=== PATIENT | female | born 1975 | race African-American/Black ===

== ENCOUNTER → 2016-11-08 | Outpatient (CLI) | payer OTHER ==
[2016-03-22 11:50] VITALS: BP 121/72
[~2016-11-08] MED LIST: ACET-704 PO; ADAL40KI SQ; BUPIVACAINE MPF 0.25% 10 ML VIAL. ONE; DEXL60CA PO; DULO30CA2 PO; ESTR5VIA IM; ETON68IM3 SQ; FLUT9.9S NS; HYDR-2762 PO; IBUP-1060 PO; IOHEXOL 180 MG/ML 10 ML VIAL. ONE; LANS30CA17 PO; LISI1TAB5 PO; METO50TA2 PO; MONT10TA9 PO; PREG150C PO; TIZA4TAB PO; methylPREDNISolone ACETATE 40 MG/ML VIAL. ONE; methylPREDNISolone ACETATE 80 MG/ML VIAL. ONE
--- NOTE | 2016-11-09 01:13 | PN ---
DATE: 11/08/2016 Progress note for pain clinic. DIAGNOSES: 1. Lumbar radiculopathy with lumbar spondylosis. 2. Myofascial pain. HISTORY OF PRESENT ILLNESS: The patient is a 41-year-old female who returns for followup status post bilateral lumbar facet joint injections at L4-L5 and L5-S1 levels on 08/26/2016. The patient reports she did very well by 100% improvement for the first week then gradual return of the pain across the low back, more on the right than the left at this time, the pain with movement and walking and standing. The patient has still not proceeded with following up with physical therapy orders. We discussed this in detail and we will try and renew these once again. The patient otherwise doing well, the pain returning again in the low back radiating to the right lower extremity, some extent as well in the lateral and posterior thigh as well as the anterior thigh to the medial lower leg on the right side only. The patient reports that she feels she has a knot in her back. Pain is a 4-5 on a scale of 10, worse on the right side again with twisting motions, bending, walking and standing, much more noticeable. The patient reports she is having some difficulty sleeping, but only over the last week or so with the pain in the back and in the right leg. The patient reports no new motor or sensory deficits, no new bowel or bladder incontinence or other complaints. PHYSICAL EXAMINATION: VITAL SIGNS: The patient's blood pressure 143/102, pulse 101, respirations 18, temperature is 98.2 degrees Fahrenheit, height 6 feet, weight is 417 pounds. GENERAL: The patient is awake, alert, oriented, appropriate, very pleasant demeanor. HEENT: Head shows normocephalic, atraumatic. Extraocular movements are intact and symmetrical. Oral cavity, mucous membranes are moist and pink. Dentition is intact. NECK: Shows anterior throat supple without palpable lymphadenopathy noted. Swallow reflex is symmetrical. CHEST: Shows normal on inspection. Breath sounds are clear to auscultation bilaterally. HEART: Shows S1 and S2 clear. No murmurs auscultated. ABDOMEN: Obese, soft, nontender, nondistended. No palpable organomegaly is noted. No rebound or guarding demonstrated. BACK: Shows spine grossly midline. Lumbar paraspinous musculature shows normal lordotic curvature with palpation shows some moderate tenderness with palpation in the mid lumbar distribution, somewhat more on the right than the left, but appears roughly symmetrical, no evidence of atrophy, hypertrophy. Musculature is firm and tight, but normal muscle girth and normal muscle symmetry. No tenderness over the sacrum or sacroiliac regions. EXTREMITIES: Lower extremities showed deep tendon reflexes at 1+/4 in the patellar tendons. Motor exam is strong with 5/5 dorsiflexion, extension, quadriceps and hamstring flexion equal. Options were discussed with the patient. The patient's old chart was reviewed as her current medication regimen updated. Current review of systems updated today as well. We will proceed with a repeat bilateral L4-L5 and L5-S1 facet joint injections with fluoroscopic guidance. Risks were discussed including but not limited to bleeding, infection, possibility of epidural hematoma, subsequent neurologic compromise, dural puncture, headaches, spinal cord and/or nerve damage, side effects of steroid medications and poor results regarding pain control. The patient understands and wishes to proceed. The patient will return to clinic in approximately 4 weeks for followup. We will make some new orders for physical therapy with water therapy. This will be the best approach for her. She is willing to try this once again also was counseled as to activity levels and side effects to be aware of and discussed if the pain in the right leg becomes worse and she does have a significant radiculopathy ____ have her back to approve for lumbar epidural steroid injections. She is done very well with those in the past for the right lower extremity pain. DIAGNOSES: Lumbar spondylosis with degenerative disk disease. PROCEDURE: Bilateral L4-L5 and L5-S1 lumbar facet joint injections with C-arm fluoroscopic guidance under sterile prep and drape using local anesthetic. MEDICATIONS INJECTED: A 120 mg total of Depo-Medrol plus a total of 4 mL of 0.25% bupivacaine and a total of 2 mL of Isovue for contrast. CONDITION AT DISCHARGE: Stable. The patient tolerated the procedure well, had no complications. MAYITO PEREZ MD DR: SHEEBA/yg JOB#: [id number] / [id number]
== END | disposition home or self-care (01) ==
LOC: PNCL 09:21
PROVIDERS: ATTEND Anesthesiology
DX: M47.26 Other spondylosis with radiculopathy, lumbar region (principal); E78.00 Pure hypercholesterolemia, unspecified; I10 Essential (primary) hypertension; F41.9 Anxiety disorder, unspecified; F32.9 Major depressive disorder, single episode, unspecified; M19.90 Unspecified osteoarthritis, unspecified site; Z87.39 Personal history of other diseases of the musculoskeletal system and connective tissue
CPT/HCPCS: 64493; 64494; J1030; J1040; J3490

== ENCOUNTER → 2016-12-06 | Outpatient (CLI) | payer OTHER ==
[2016-03-22 11:50] VITALS: BP 121/72
[~2016-12-06] MED LIST changes: -BUPIVACAINE MPF 0.25% 10 ML VIAL. ONE; -IOHEXOL 180 MG/ML 10 ML VIAL. ONE; -methylPREDNISolone ACETATE 40 MG/ML VIAL. ONE; -methylPREDNISolone ACETATE 80 MG/ML VIAL. ONE
--- NOTE | 2016-12-07 02:15 | PAIN ---
DATE OF SERVICE: 12/06/2016 PROGRESS NOTE PAIN CLINIC DIAGNOSES: 1. Lumbar radiculopathy with lumbar spondylosis. 2. Myofascial pain. HISTORY: The patient is a 41-year-old female who returns followup status post lumbar facet joint injections on 11/08/2016. The patient returned from reporting about 95% improvement in her low back pain and is still maintained; however, she is having some significant pain now in the sciatic distribution of the left leg as she had previously in the posterior gluteus, posterior lateral thigh, posterior thigh, posterior knee, posterior lower leg, and up to the level of the ankle on the left side only. The patient reports it is 2 on a scale of 10 currently where it can be as high as 6 or 7 on scale of 10 with walking and standing and again it is not significantly limiting her at this time, but reports that it is starting to remind her more of the pain in the low back and left leg as she has had previously where it was more debilitating. The patient is to start physical therapy tomorrow with pool therapy ordered and will be doing that and we will keep tabs on this as well. She is doing therapy through our therapy department. The patient will be doing pool therapy at this time and is looking forward to it as she is hoping to get some improved mobility and decreased pain on longer lasting basis. The patient reports no new motor sensory deficits, no new bowel or bladder incontinence or other complaints. PHYSICAL EXAMINATION: VITAL SIGNS: Today, blood pressure 146/109, pulse 92, respirations 20, temperature is 98.2 degrees Fahrenheit, height is 6 foot, weight is 421 pounds. GENERAL: The patient is awake, alert, oriented and appropriate, is very pleasant demeanor. HEENT: Head shows normocephalic, atraumatic. Extraocular movements are intact and symmetrical. Oral cavity, mucous membranes are moist and pink. Dentition is intact. NECK: Shows anterior throat supple without palpable lymphadenopathy noted. Swallow reflex is symmetrical. CHEST: Shows normal on inspection. Breath sounds are clear to auscultation bilaterally. HEART: Shows S1 and S2 clear. No murmurs auscultated. ABDOMEN: Obese, soft, nontender, nondistended. No palpable organomegaly is noted. BACK: Shows spine grossly in the midline with slight ____ thoracic kyphosis and mild flattening of the lumbar lordotic curvature. Lumbar paraspinous musculature shows some moderate tenderness to palpation, but only diffusely in the lower lumbar distribution. The patient has good rotational motion on exam today with both lateral as well as extension and flexion rotation without significant pain reported. EXTREMITIES: Lower extremities had deep tendon reflexes at 1+ in the patellar and tendo calcaneus tendons. Motor exam is strong with 5/5 dorsiflexion, extension, and approximately 4 on a scale of 5 with quadricep and hamstring flexion, but again symmetrical. Peripheral pulses are 1+ posterior tibial and dorsalis pedis pulses. No peripheral edema is noted bilaterally. Options were discussed with the patient. The patient's old chart was reviewed as her current medication regimen updated. Current review of systems updated to date as well. We will have her continue as scheduled with water physical therapy starting tomorrow. Also discussed the increased sciatic pain distribution in her left leg. We will preauthorize her for lumbar epidural steroid injections. She did very well with these with the radicular pain in the past. Also discussed weight loss techniques and she is hoping that the physical therapy will be helpful with this as well. Also the patient's blood pressure, which is elevated today, we discussed she would see her primary care physician and followup with this as well. MAYITO PEREZ MD DR: SHEEBA/yg JOB#: [id number] / [id number]
== END | disposition home or self-care (01) ==
LOC: PNCL 10:42
PROVIDERS: ATTEND Anesthesiology
DX: M54.16 Radiculopathy, lumbar region (principal); M47.896 Other spondylosis, lumbar region; M79.1 Myalgia
CPT/HCPCS: 99212

== ENCOUNTER → 2017-02-16 | Outpatient (CLI) | payer OTHER ==
[2016-03-22 11:50] VITALS: BP 121/72
[~2017-02-16] MED LIST changes: +CLON0.5T3 PO; -DEXL60CA PO; +DEXL60CA2 PO; -LANS30CA17 PO; +LANS30CA66 PO
--- NOTE | 2017-02-17 00:56 | PAIN ---
DATE OF SERVICE: 02/16/2017 PROGRESS NOTE FOR PAIN CLINIC DIAGNOSES: 1. Lumbar radiculopathy with lumbar spondylosis. 2. Myofascial pain. HISTORY OF PRESENT ILLNESS: The patient is a 42-year-old female who returns for followup status post lumbar epidural steroid injections as well as cervical epidural steroid injection. The patient does well with these initially. We had bilateral facet injections done in November of this year and she did about 95% improvement after that, but is limited by only about 3-4 weeks. The patient reports the pain is returning now in the low back, right lower extremity with tingling in the right leg, posterior gluteus, posterior thigh and calf. We planned on lumbar epidural steroid injection today; however, the authorization has not completed yet secondary to coding issues. The patient reports still having significant pain rated as 7 on a scale of 10 at its worst, is a 4 on a scale of 10, describes as tingling, aching, dull and radiating on and off in intensity. The patient reports that she is having difficulty sitting for more than about an hour or so. very difficult for her to perform her work duties. The patient does have significant degenerative change in her lumbar spine by old MRIs, but without any neural impingement. The patient reports she is planning on talking to a weight loss surgeon within the next week as well and I encouraged her to continue investigating that. The patient reports she is having difficulty walking secondary to the pain very easily. She is using the cane with her today in her left hand. She also uses the walker and wheelchair on occasion. She does not have those with her today, but has had those with her in previous visits and use them per her report frequently at home. PHYSICAL EXAMINATION: VITAL SIGNS: Today, blood pressure is 161/114, pulse is 85, respirations 18, temperature 98.2 degrees Fahrenheit, weight is 426 pounds. GENERAL: The patient is awake, alert, oriented, appropriate, very pleasant demeanor. HEENT: Head shows normocephalic, atraumatic. Extraocular movements are intact and symmetrical. Oral cavity shows mucous membranes moist and pink. Dentition is intact. NECK: Shows anterior throat supple without palpable lymphadenopathy noted. Swallow reflex is symmetrical. CHEST: Shows normal on inspection. Breath sounds are clear to auscultation bilaterally. HEART: Shows S1 and S2 clear. No murmurs auscultated. ABDOMEN: Obese, soft, nontender, nondistended. BACK: Shows spine grossly in midline. Slight exaggeration of thoracic kyphosis and mild flattening of lumbar lordotic curvature. Lumbar paraspinous muscle shows symmetrical on inspection with palpation shows moderate tenderness throughout the upper, middle and lower distribution of paraspinous muscles diffusely without radiation. Also, some mild pain in the inferior aspect of the cervical paraspinous musculature and superior medial trapezius again symmetrical without radiation. EXTREMITIES: Lower extremities showed deep tendon reflexes 1+ in the patellar and tendo calcaneus tendons. Motor exam is 5/5 with dorsiflexion, extension and +4/5 with quadriceps and hamstring flexion, but equal and symmetrical. Options were discussed with the patient and the patient's old chart was reviewed. Her current medication regimen updated. Current review of systems updated today as well. We will preauthorize the patient for lumbar epidural steroid injection. Also, we will have the patient start taking ibuprofen 800 mg up to 3 times daily as she reports good results with these in the past. The patient was cautioned as to medication regimen and side effects to be aware of, especially stomach upset with the ibuprofen. The patient was encouraged to maintain using her cane and walker or wheelchair as necessary. I encouraged to pursue the weight loss surgery as well as the patient has had significant pain secondary to her weight and size, especially with her right knee as well as the low back with working ability as tolerated, but the patient reports she is unable to sit more than an hour or so in one position and we recommended that she change positions to stand or lay down after 1-2 hours if possible if she is sitting for a longer period, same with walking, which she will have supportive devices such as a cane, walker or wheelchair if available, when she could be ambulating more than about 30 minutes or so. The patient will return to clinic once preauthorization was obtained. We will plan on lumbar epidural steroid injection at that time. MAYITO PEREZ MD DR: SHEEBA/yg JOB#: [id number] / [id number]
== END | disposition home or self-care (01) ==
LOC: PNCL 07:40
PROVIDERS: ATTEND Anesthesiology
DX: M47.26 Other spondylosis with radiculopathy, lumbar region (principal); M79.1 Myalgia
CPT/HCPCS: 99212

== ENCOUNTER → 2017-03-04 | Outpatient (CLI) | payer OTHER ==
[2016-03-22 11:50] VITALS: BP 121/72
[~2017-03-04] MED LIST changes: +IOHEXOL 180 MG/ML 10 ML VIAL. ONE; +methylPREDNISolone ACETATE 40 MG/ML VIAL. ONE; +methylPREDNISolone ACETATE 80 MG/ML VIAL. ONE
== END | disposition home or self-care (01) ==
LOC: PNCL 09:10
PROVIDERS: ATTEND Anesthesiology
DX: M47.26 Other spondylosis with radiculopathy, lumbar region (principal); E78.00 Pure hypercholesterolemia, unspecified; I10 Essential (primary) hypertension; Z87.39 Personal history of other diseases of the musculoskeletal system and connective tissue; M19.90 Unspecified osteoarthritis, unspecified site; F41.9 Anxiety disorder, unspecified; F32.9 Major depressive disorder, single episode, unspecified; Z72.0 Tobacco use; Z88.0 Allergy status to penicillin; Z88.8 Allergy status to other drugs, medicaments and biological substances
CPT/HCPCS: 62323; J1030; J1040

== ENCOUNTER → 2017-03-29 | Outpatient (CLI) | payer OTHER ==
[2016-03-22 11:50] VITALS: BP 121/72
[~2017-03-29] MED LIST changes: -IOHEXOL 180 MG/ML 10 ML VIAL. ONE; -methylPREDNISolone ACETATE 40 MG/ML VIAL. ONE; -methylPREDNISolone ACETATE 80 MG/ML VIAL. ONE
--- NOTE | 2017-03-30 06:45 | PAIN ---
DATE OF SERVICE: 03/29/2017 PROGRESS NOTE FOR PAIN CLINIC DIAGNOSES: 1. Lumbar radiculopathy with lumbar spondylosis and lumbosacral spondylosis. 2. Myofascial pain. HISTORY OF PRESENT ILLNESS: The patient, a 42-year-old female, returns for followup status post lumbar epidural steroid injection x 1 on 03/04/2017. The patient reports she did very well with this, about 90% improvement in the pain in her lower extremities and low back; however, has a chief complaint today of right-sided low back pain without radiation into the lower extremities. This is worse with rotation, extension as well as driving a car on her right side, has been somewhat significant in the last few weeks. The patient did have good results with facet joint injections in November of this year with about 95% improvement and the pain is returning now, similar to that by her report, but only on the right side. The patient reports no new motor or sensory deficits, no new injury or accident. The patient reports her pain is an 8 on a scale of 10 at its worst, is a 4 currently and is on average about 6 on a scale of 10 in the right-sided low back again, doing much better after the epidural with no significant radicular pain in the lower extremities, but significant pain in the low back on the right side itself. The patient reports it awakens her from sleep at night. She has to reposition, get out of bed, change positions and walk and then lie back down and she is able to get back to sleep. The patient describes her pain as dull and tight, constant, stabbing, sticking pain in the right low back, again worse with driving the car using her right leg with gas and brake pedals and extension of the spine. PHYSICAL EXAMINATION: VITAL SIGNS: Today, the patient's blood pressure is ____/94, pulse 93, respirations 18, temperature is 98.3 degrees Fahrenheit, height is 6 feet, weight is 423 pounds. GENERAL: The patient is awake, alert, oriented, appropriate, has a very pleasant demeanor. HEENT: Shows normocephalic, atraumatic. Extraocular movements are intact, symmetrical. Oral cavity, mucous membranes are moist and pink. Dentition is intact. NECK: Shows anterior throat supple without palpable lymphadenopathy noted. Swallow reflex is symmetrical. Neck shows full rotational motion of the cervical spine without difficulty including extension and flexion. CHEST: Shows normal on inspection. Breath sounds are clear to auscultation bilaterally. HEART: Shows S1 and S2 clear. No murmurs auscultated. ABDOMEN: Obese, soft, nontender, nondistended. No palpable organomegaly is noted. No rebound or guarding demonstrated. BACK: Shows spine grossly in the midline with some mild flattening of the lumbar lordotic curvature. Paraspinous musculature shows symmetrical on inspection, with palpation shows some moderate tenderness in the right low paraspinous musculature just paraspinous to the midline. No tenderness over the sacrum or sacroiliac regions. The patient shows good rotational motion, but significant pain with extension and right lateral rotation in the right low back itself without radiation. EXTREMITIES: Lower extremities show deep tendon reflexes at 1+ in the patellar and tendo calcaneus tendons. Motor exam is 5/5 with ankle dorsiflexion, extension and 4/5 with quadriceps and hamstring flexion, but symmetrical and equal. Peripheral pulses are 1+ posterior tibial and dorsalis pedis pulses. No peripheral edema is noted. PLAN: Options were discussed with the patient and the patient's old chart was reviewed as was her current medication regimen and updated. Current review of systems updated today as well. We will preauthorize the patient for right-sided L4-L5 and L5-S1 facet injections. She has done very well with these in the past. In the meantime, we will try Medrol Dosepak. The patient was given instructions as well as side effects to be aware of with the medication prescription and will follow up as scheduled. MAYITO PEREZ MD DR: SHEEBA/yg JOB#: [id number] / [id number]
== END | disposition home or self-care (01) ==
LOC: PNCL 09:12
PROVIDERS: ATTEND Anesthesiology
DX: M54.16 Radiculopathy, lumbar region (principal); M47.896 Other spondylosis, lumbar region; M79.1 Myalgia
CPT/HCPCS: 99212

== ENCOUNTER → 2017-04-15 | Outpatient (CLI) | payer OTHER ==
[2016-03-22 11:50] VITALS: BP 121/72
--- NOTE | 2017-04-15 13:17 | KCIC ---
EXAM: Lumbar spine, 7 views; pelvis, single view. HISTORY: Pain. COMPARISON: None. FINDINGS: Lumbar spine: Frontal, lateral, bilateral oblique and coned sacral views of the lumbar spine are obtained. The exam is limited due to large patient body habitus. There is grade 1 anterolisthesis of L4 on L5, measuring 4 mm. There is minimal retrolisthesis of L5 on S1, measuring 2 mm. There is minimal endplate remodeling and mild facet arthropathy primarily at the lower lumbar levels. There is lumbar hyperlordosis. Pelvis: Frontal views of the pelvis are obtained. The exam is limited due to large patient body habitus. There is no acute fracture. The femoral heads are normal in configuration and seated appropriately. IMPRESSION: 1. No acute osseous finding. 2. Grade 1 anterolisthesis of L4 on L5, suspected slight retrolisthesis of L5 on S1 and mild lumbar hyperlordosis. 3. Minimal degenerative change at the lower lumbar levels. Electronically signed by: Mary Cintron MD (04/15/2017 1:14 PM) [facility]
--- NOTE | 2017-04-15 21:40 | PN ---
DATE: 04/15/2017 PROGRESS NOTE FOR PAIN CLINIC DIAGNOSES: Lumbar radiculopathy with both lumbar and lumbosacral spondylosis. HISTORY OF PRESENT ILLNESS: The patient is a 42-year-old female who returns for followup status post lumbar epidural steroid injections with good results, last was on 03/04/2017. The patient did well with this; however, had been having increased pain in the right low back and posterior hip. The patient significant pain in the left hip itself and is going for x-rays of the left hip later this afternoon. The patient reports the low back on right side is still radiating to the posterior gluteus and lateral thigh, but not into the groin where it does radiate in to the groin on the left side. The patient reports significant pain with walking, standing, change in positions. The patient reports it awakes her from sleep. She is sleep in a sitting upright position on a low seat and it awakens her from sleep fairly frequently, so does her left hip. The patient reports the pain as a 10 on a scale of 10 at its worst, it is a 6 at its least and is a 8 currently today. The patient reports the pain in her back on her right side as aching, sharp, shooting and stabbing. The left hip has a dull, shooting pain as well, which can become severe. The patient reports no new motor or sensory deficits, no new bowel or bladder incontinence. PHYSICAL EXAMINATION: VITAL SIGNS: The patient's blood pressure is 143/100, pulse 99, respirations are 18, temperature is 98.3 degrees Fahrenheit. Weight is 420 pounds. GENERAL: The patient is awake, alert, oriented, appropriate, has a very pleasant demeanor. HEENT: Shows normocephalic, atraumatic. Extraocular movements are intact, symmetrical. Oral cavity: Mucous membranes moist and pink. Dentition is intact. NECK: Shows anterior throat supple without palpable lymphadenopathy noted. Swallow reflex is symmetrical. CHEST: Shows normal on inspection. Breath sounds are clear to auscultation bilaterally. HEART: Shows S1 and S2 clear. ABDOMEN: Obese, soft, nontender, nondistended. No palpable organomegaly. No rebound or guarding demonstrated. BACK: Shows spine grossly in the midline. Lumbar paraspinous muscle shows some moderate tenderness with palpation, but is symmetrical and shows moderate tenderness with palpation, but only diffusely. The patient has good rotational motion with increased pain with extension on the right side of low back, but not with forward flexion. EXTREMITIES: Lower extremities show deep tendon reflexes at 1+ in the patellar and tendo calcaneus tendons. Motor exam is strong with 5/5 dorsiflexion, extension at approximately 4 on a scale of 5 with quadriceps and hamstring flexion, but is symmetrical. Options were discussed with the patient. The patient's old chart was reviewed as her current medication regimen updated and reviewed as well. We will proceed with right-sided L4-L5 and L5-S1 facet joint injections with fluoroscopic guidance. Risks were again discussed including, but not limited to bleeding, infection, possibility of epidural hematoma, subsequent neurologic compromise, dural punctures, headaches, spinal cord and/or nerve damage, side effects of steroid medication and poor results regarding pain control. The patient understands and wishes to proceed. The patient will return to the clinic in approximately 2 weeks for followup, was counseled on return appointment, activity level and side effects to be aware of. Again, the patient will go for x-rays of the left hip today, which were already ordered and I asked her to have the results forwarded to our office as well. Also, discussed the patient's blood pressure has been high for several visits now. She will readdress this with her primary care physician. She reports she already has an appointment to do so. DIAGNOSIS: Lumbar spondylosis, both lumbar and lumbosacral on the right. PROCEDURE: Right-sided L4-L5 and L5-S1 facet joint injections with fluoroscopic guidance under sterile prep and drape using local anesthetic. Medication injected is a total of 120 mg Depo-Medrol plus 2 mL of 0.25% bupivacaine and 2 mL of Isovue for contrast. CONDITION AT DISCHARGE: Stable. The patient tolerated the procedure well, had no complications. MAYITO PEREZ MD DR: SHEEBA/yg JOB#: [id number] / [id number]
== END | disposition home or self-care (01) ==
LOC: KCIC 12:03
PROVIDERS: ATTEND Internal Medicine Rheumatology
DX: M47.896 Other spondylosis, lumbar region (principal); M47.897 Other spondylosis, lumbosacral region; M54.16 Radiculopathy, lumbar region; M25.552 Pain in left hip; M25.551 Pain in right hip; R10.2 Pelvic and perineal pain
CPT/HCPCS: 72110; 72170

== ENCOUNTER → 2017-04-15 | Outpatient (CLI) | payer OTHER ==
[2016-03-22 11:50] VITALS: BP 121/72
[~2017-04-15] MED LIST changes: +BUPIVACAINE MPF 0.25% 10 ML VIAL. ONE; +IOHEXOL 180 MG/ML 10 ML VIAL. ONE; +methylPREDNISolone ACETATE 40 MG/ML VIAL. ONE; +methylPREDNISolone ACETATE 80 MG/ML VIAL. ONE
== END | disposition home or self-care (01) ==
LOC: PNCL 10:56
PROVIDERS: ATTEND Anesthesiology
DX: M47.28 Other spondylosis with radiculopathy, sacral and sacrococcygeal region (principal); E78.00 Pure hypercholesterolemia, unspecified; I10 Essential (primary) hypertension; M19.90 Unspecified osteoarthritis, unspecified site; F41.9 Anxiety disorder, unspecified; F32.9 Major depressive disorder, single episode, unspecified; F17.200 Nicotine dependence, unspecified, uncomplicated; Z87.39 Personal history of other diseases of the musculoskeletal system and connective tissue; Z72.0 Tobacco use; Z88.0 Allergy status to penicillin; Z88.2 Allergy status to sulfonamides; Z88.8 Allergy status to other drugs, medicaments and biological substances
CPT/HCPCS: 64493; 64494; J1030; J1040; J3490

== ENCOUNTER → 2017-04-19 | Outpatient (CLI) | payer OTHER ==
[2016-03-22 11:50] VITALS: BP 121/72
[~2017-04-19] MED LIST changes: -BUPIVACAINE MPF 0.25% 10 ML VIAL. ONE; -IOHEXOL 180 MG/ML 10 ML VIAL. ONE; -methylPREDNISolone ACETATE 40 MG/ML VIAL. ONE; -methylPREDNISolone ACETATE 80 MG/ML VIAL. ONE
--- NOTE | 2017-04-19 14:00 | KCIC ---
Bilateral digital screening mammograms: Reason for examination: Routine screening. Comparison is made to previous study dated 03/29/2016. The skin and nipples show no abnormalities. No abnormal axillary lymph nodes are seen. The breast parenchyma shows scattered fibroglandular density. (Breast density: Category B.) There appears to be a circumscribed 8 mm nodule at approximately the 11:00 B position of the right breast which is only seen on certain projections. This may represent an intramammary lymph node but further evaluation with ultrasound is recommended. There are no other new dominant masses, suspicious calcifications or architectural distortions. Impression: Small 8 mm nodule at approximately the 11:00 B position of the left breast which is only seen on certain projections. This may represent an intramammary lymph node but recommend further evaluation with ultrasound. BI-RADS Category 0: Incomplete. Ultrasound follow-up is recommended. "Our facility is accredited by the [employer] Mammography Program." This patient's information has been entered into a reminder system for the patient to be notified with the results of her examination and a target date for the next mammogram. Electronically signed by: Jossie Marquez MD (04/19/2017 1:57 PM) [facility]
== END | disposition home or self-care (01) ==
LOC: KCIC MAMMO 08:38
PROVIDERS: ATTEND Internal Medicine
DX: Z12.31 Encounter for screening mammogram for malignant neoplasm of breast (principal)
CPT/HCPCS: G0202; 77067

== ENCOUNTER → 2017-04-28 | Outpatient (CLI) | payer OTHER ==
[2016-03-22 11:50] VITALS: BP 121/72
--- NOTE | 2017-04-28 11:56 | RAD ---
Right breast ultrasound, 04/28/2017: History: Suspicious mammogram Previous mammograms demonstrated a 8 mm nodule at the 11:00 location in the right breast. A targeted ultrasound exam of that area demonstrates a superficial nodule which measures 8.4 x 8.2 x 4.1 mm. It appears to correspond in size and location to the mammographic abnormality. Its margins are smooth. It contains tiny cystic components as well as medium echogenicity solid-appearing components with a small amount of color flow. This does not have the appearance of a normal lymph node. Biopsy is suggested. IMPRESSION: Small complex nodule at the 11:00 o'clock location in the right breast as right above. Ultrasound-guided biopsy is suggested for further evaluation. BI-RADS 4-suspicious abnormality. Note: The patient was informed of the recommendation for biopsy by the research technologist at the time of the exam. She will follow up with the ordering physician.
== END | disposition home or self-care (01) ==
LOC: KCIC US 10:59
PROVIDERS: ATTEND Internal Medicine
DX: N63 Unspecified lump in breast (principal)
CPT/HCPCS: 76641

== ENCOUNTER → 2017-04-29 | Outpatient (CLI) | payer OTHER ==
[2016-03-22 11:50] VITALS: BP 121/72
--- NOTE | 2017-04-29 19:39 | PAIN ---
DATE OF SERVICE: 04/29/2017 DIAGNOSES: 1. Lumbar radiculopathy with lumbar spondylosis and lumbosacral spondylosis. 2. Myofascial pain. HISTORY OF PRESENT ILLNESS: Ms. Jackman is a 42-year-old female who returns for followup, status post right-sided facet joint injection at L4-L5 and L5-S1, with about 75% improvement after the injections. The patient reports the pain is still improved even after the injection on 04/15/2017, and has been holding on for the last couple of weeks. The patient reports it is still increasing in the right side low back, radiating to the posterior gluteus and thigh, occasionally, but usually just in the back itself. The patient reports worse with sitting too long, riding in the car, using her right leg with operating the pedals on the car. The patient reports it awakens her from sleep only sporadically, not every night. Reports no new motor or sensory deficits. Rates her pain at 8 on a scale of 10 at its worst, at 3 at least, and is a 5 on a scale of 10 today. The patient reports it is dull, tight, stabbing, in the right low back. PHYSICAL EXAMINATION: VITAL SIGNS: The patient's blood pressure is 157/110, pulse 93, respirations 20, temperature 98.5 degrees Fahrenheit. Height 6 feet, weight is 418 pounds. GENERAL: The patient is awake, alert, oriented, appropriate, has very pleasant demeanor. HEENT: Head shows normocephalic, atraumatic. Extraocular movements are intact and symmetrical. Oral cavity, mucous membranes are moist and pink. Dentition is intact. NECK: Shows anterior throat supple without palpable lymphadenopathy noted. Swallow reflex is symmetrical. CHEST: Shows normal on inspection. Breath sounds clear to auscultation bilaterally. HEART: Shows S1 and S2 clear. ABDOMEN: Soft, nontender, nondistended, obese. No palpable organomegaly. No rebound or guarding demonstrated. BACK: The patient's back shows spine grossly midline. Normal appearing thoracic kyphosis and lumbar lordotic curvature. Lumbar paraspinous muscle shows significant tenderness to palpation over the right inferior aspect of the paraspinous musculature, but without significant radiation or asymmetry. EXTREMITIES: Lower extremities showed deep tendon reflexes 1+ in the patellar and tendo calcaneus tendons. Motor exam is strong at 5/5 dorsiflexion, extension, and 4/5 with quadriceps and hamstring flexion, but equal and symmetrical. Options were discussed with the patient. The patient's old chart was reviewed, as her current medication regimen updated. Current review of systems updated today as well. We will preauthorize the patient for additional right-sided L4-L5 and L5-S1 facet injections, and I did discuss potential radiofrequency ablation in the future, if she does well with the second repeat injection of the facet joints. The patient also was counseled as to her weight and blood pressure. She is planning to follow up with her primary care physician regarding the blood pressure here soon. MAYITO PEREZ MD DR: SHEEBA/nts JOB#: [id number] / [id number]
== END | disposition home or self-care (01) ==
LOC: PNCL 10:09
PROVIDERS: ATTEND Anesthesiology
DX: M54.16 Radiculopathy, lumbar region (principal); M47.896 Other spondylosis, lumbar region; M47.897 Other spondylosis, lumbosacral region; M79.1 Myalgia
CPT/HCPCS: 99212

== ENCOUNTER → 2017-06-01 | Outpatient (CLI) | payer OTHER ==
[2016-03-22 11:50] VITALS: BP 121/72
[~2017-06-01] MED LIST changes: +HYDR-2766 PO; +IOHEXOL 180 MG/ML 10 ML VIAL. ONE; +methylPREDNISolone ACETATE 40 MG/ML VIAL. ONE; +methylPREDNISolone ACETATE 80 MG/ML VIAL. ONE
--- NOTE | 2017-06-02 01:21 | PAIN ---
DATE OF SERVICE: 06/01/2017 DIAGNOSES: Lumbar radiculopathy with lumbar spondylosis. HISTORY OF PRESENT ILLNESS: The patient is a 42-year-old female who returns for followup status post lumbar epidural steroid injection x 1 in February of this year, also, some lumbar facet blocks which did very well with each of these, 90% with the epidural injection, 75% with the lumbar facet blocks. Patient returns today reporting still significant pain across the low back and to the bilateral lower extremities, worse on the right than the left with increased activity, walking, standing, change in positions. The patient reports it does not awaken her from sleep at night though she feels much better with sitting or lying down. The pain is an 8 on a scale of 10 at its worst and 3 at its least, its average about 6. The patient reports no new motor or sensory deficits, no new bowel or bladder incontinence, describes the pain as tingling in her left foot, also aching, dull and tight shooting pain in the back and into the lower extremities, again worse on the right side in the hip and leg, wherein the left foot with tingling sensation as well. The patient reports no new motor or sensory deficits. No new bowel or bladder incontinence or other complaints. PHYSICAL EXAMINATION: VITAL SIGNS: The patient's blood pressure today is 169/91, pulse 81, respirations are 18, temperature 98.4 degrees Fahrenheit, height is 5 feet 11 inches, weight is 415 pounds. GENERAL: The patient is awake, alert, oriented, appropriate, very pleasant demeanor. HEENT: Head shows normocephalic, atraumatic. Extraocular movements are intact and symmetrical. Oral cavity shows mucous membranes moist and pink. Dentition is intact. NECK: Shows anterior throat supple without palpable lymphadenopathy noted. Swallow reflex is symmetrical. CHEST: Shows normal on inspection. Breath sounds are clear to auscultation bilaterally. HEART: Shows S1 and S2 clear. No murmurs auscultated. ABDOMEN: Soft, nontender, nondistended, obese. No palpable organomegaly is noted. BACK: Shows spine grossly in the midline. Slight exaggeration of thoracic kyphosis and mild flattening of lumbar lordotic curvature. Lumbar paraspinous muscle shows some [id number] tenderness with palpation in the upper distribution of paraspinous muscles. The lumbar distribution shows significant tenderness, very firm musculature bilaterally, worse on the right than the left with palpation and increased tenderness on the right only diffusely without radiation; however, the patient shows no tenderness over the spinous processes, sacrum or sacroiliac regions. EXTREMITIES: The patient's lower extremities showed deep tendon reflexes 1+ in the patellar and tendo calcaneus tendons are equal. Motor exam is strong with 5/5 dorsiflexion, extension and approximately 4/5 with quads and hamstring flexion, but is symmetrical. Peripheral pulses are 1+ posterior tibial. No peripheral edema is noted. Options were discussed with the patient. The patient's old chart was reviewed and her current medication regimen updated. Current review of systems updated today as well. We will proceed with a second in this series of lumbar epidural steroid injection with fluoroscopic guidance. Risks were again discussed including, but not limited to bleeding, infection, possibility of epidural hematoma and subsequent neurological compromise, dural puncture, headaches, spinal cord and/or nerve damage, side effects of steroid medication, and poor results regarding pain control. The patient understands and wishes to proceed. The patient will return to the clinic in approximately 2 weeks for followup, was counseled on return appointment, activity level and side effects to be aware of. DIAGNOSES: Lumbar radiculopathy with lumbar spondylosis. PROCEDURE: Lumbar epidural steroid injection in translaminar approach L4-L5 level and serum fluoroscopic guidance under sterile prep and drape using local anesthetic. Medication injected a total of 120 mg Depo-Medrol plus 10 mL of preservative-free normal saline and 2 mL of Isovue for contrast. CONDITION AT DISCHARGE: Stable. The patient tolerated procedure well, had no complications. MAYITO PEREZ MD DR: SHEEBA/yg JOB#: [id number] / [id number]
== END | disposition home or self-care (01) ==
LOC: PNCL 10:28
PROVIDERS: ATTEND Anesthesiology
DX: M47.26 Other spondylosis with radiculopathy, lumbar region (principal); E78.00 Pure hypercholesterolemia, unspecified; I10 Essential (primary) hypertension; M19.91 Primary osteoarthritis, unspecified site; F32.9 Major depressive disorder, single episode, unspecified; F41.9 Anxiety disorder, unspecified; F17.200 Nicotine dependence, unspecified, uncomplicated; Z87.39 Personal history of other diseases of the musculoskeletal system and connective tissue; Z72.0 Tobacco use; Z88.0 Allergy status to penicillin; Z88.2 Allergy status to sulfonamides
CPT/HCPCS: 62323; J1030; J1040

== ENCOUNTER → 2017-07-25 | Outpatient (CLI) | payer OTHER ==
[2016-03-22 11:50] VITALS: BP 121/72
[~2017-07-25] MED LIST changes: -IOHEXOL 180 MG/ML 10 ML VIAL. ONE; -methylPREDNISolone ACETATE 40 MG/ML VIAL. ONE; -methylPREDNISolone ACETATE 80 MG/ML VIAL. ONE
--- NOTE | 2017-07-25 14:37 | PAIN ---
DATE OF SERVICE: 07/25/2017 DIAGNOSES: Lumbar radiculopathy with lumbar spondylosis. HISTORY OF PRESENT ILLNESS: The patient is a 42-year-old female who returns for followup status post lumbar epidural steroid injections x 2. The patient reports she did very well, about an 80% improvement over the first about 6 weeks following the injection. The patient reports pain is returning now in the low back and left lower extremity as it was previously, becoming more noticeable in the low back bilaterally, radiating to posterior gluteus, posterior lateral thigh, lateral anterior thigh, medial thigh, into the left leg with some tingling and numbness in the left foot as aching, sharp, dull, tight, becoming more constant, more severe, more noticeable, worse with walking, standing and weightbearing. The patient reports she is only be able to get on her feet about 10-15 minutes at a time. She was having some difficulty trying to do some work activities. 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 She had to sit down and quit doing it. The patient reports it is becoming much more significant with work activities. Any time on her feet even sitting in a chair that does not have reclining ability such as at a restaurant or a store has a significant increase in pain and most times, she could not stay there she reports because of the pain that will be caused by even sitting for more than 10-15 minutes, but long standing for more than 10-15 minutes where she must get off her back, rest, lay down, sit down. The patient reports it is better with lying down, does not awaken her from sleep at night. She is usually feeling much better on her back. Range of pain is 8 on a scale of 10 at its worst, a 5 on average and 3 at least, is a 5 today. The patient reports no new motor or sensory deficits, no new bowel or bladder incontinence, but still significant pain returning in a radiating pattern at L4-L5 dermatome in the left leg. She has been doing some stretching at home, but is not able do this very effectively, has not had any formal physical therapies recently. PHYSICAL EXAMINATION: VITAL SIGNS: Today, the patient's blood pressure is 169/90, pulse 79, respirations are 18, temperature 98.2 degrees Fahrenheit. Height is 5 feet 9 inches, weighs 417 pounds. GENERAL: The patient is awake, alert, oriented, appropriate, very pleasant demeanor. HEENT: Head shows normocephalic, atraumatic. Extraocular muscles are intact and symmetrical. Oral cavity, mucous membranes are moist and pink. Dentition is intact. NECK: Shows anterior throat supple without palpable lymphadenopathy noted. Swallow reflex is symmetrical. CHEST: Shows normal on inspection. Breath sounds are clear bilaterally. HEART: Shows S1, S2 clear. ABDOMEN: Obese, soft, nontender, nondistended. No palpable organomegaly is noted. BACK: Shows spine grossly in the midline. Lumbar paraspinous musculature shows symmetrical on inspection with slight flattening lumbar lordotic curvature with palpation shows some moderate tenderness throughout the upper, middle, lower distribution of paraspinous muscles bilaterally without significant radiation, but with significant tenderness bilaterally. No tenderness over the sacrum or sacroiliac regions. The patient has good rotational motion of lumbar spine with some minor tenderness with extension and minor with right and left lateral rotation, but without pain on forward flexion at 45 degrees. EXTREMITIES: Lower extremities show deep tendon reflexes 1+ in the patellar and tendo calcaneus tendons. Motor exam is strong with dorsiflexion, extension at 5/5 and equal and approximately 4/5 with quads and hamstring flexion, but symmetrical and equal as well. Peripheral pulses are 1+ posterior tibia. No peripheral edema is noted. Options were discussed with the patient. The patient's old chart was reviewed as her current medication regimen updated. Current review of systems is updated today as well. We will preauthorize the patient for a third in the series of lumbar epidural steroid injection. She has done very well with the first 2. Pain returning now in a radicular pattern L4-L5 dermatome mostly in the left leg as well as low back pain. The patient will return to clinic once preauthorization is obtained and is encouraged to maintain activity as tolerated. Try to keep doing stretching and strengthening exercises as well. MAYITO PEREZ MD DR: SHEEBA/yg JOB#: [id number] / [id number]
== END | disposition home or self-care (01) ==
LOC: PNCL 10:19
PROVIDERS: ATTEND Anesthesiology
DX: M54.16 Radiculopathy, lumbar region (principal); M47.896 Other spondylosis, lumbar region
CPT/HCPCS: 99212

== ENCOUNTER → 2017-08-18 | Outpatient (CLI) | payer OTHER ==
[2016-03-22 11:50] VITALS: BP 121/72
[~2017-08-18] MED LIST changes: +IOHEXOL 180 MG/ML 10 ML VIAL. ONE; -METO50TA2 PO; +METO50TA6 PO; +methylPREDNISolone ACETATE 40 MG/ML VIAL. ONE; +methylPREDNISolone ACETATE 80 MG/ML VIAL. ONE
--- NOTE | 2017-08-18 22:57 | PAIN ---
DATE OF SERVICE: 08/18/2017 PROGRESS NOTE FOR PAIN CLINIC DIAGNOSES: Lumbar radiculopathy with lumbar spondylosis and lumbar degenerative disk disease. HISTORY OF PRESENT ILLNESS: The patient is a 42-year-old female who returns for followup status post lumbar epidural steroid injections x 2, first in February of this year, the second one in May. The patient did very well with near 80% improvement after the last injection. The patient reports the pain is returning now; however, in the low back and right lower extremity greater than left with pain radiating to the posterior low back, posterior gluteus, posterior thighs, lateral thigh, anterior thigh and medial lower leg on the right side greater than the left, also into the foot on the left side. The patient reports it is aching, sharp, tight, dull, shooting, tingling, becoming more constant and more severe. The patient reports it is an 8 on a scale of 10 at it is worst, 4 on average, 4 at its least and is a 4 today. The patient reports it does awaken her from sleep about every 4 hours if she lies especially on her right side. She can usually reposition and get back to sleep without too much difficulty. The patient reports no new motor or sensory deficits, no new bowel or bladder incontinence, worse with standing, walking, changing positions, but better with sitting down. She has been unable to increase any of her activities secondary to the pain as well. PHYSICAL EXAMINATION: VITAL SIGNS: Today, the patient's blood pressure 156/106, pulse 88, respirations 18, temperature 98.0 degrees Fahrenheit, height is 5 feet 9 inches and weighs 411 pounds. GENERAL: The patient is awake, alert, oriented, appropriate and very pleasant demeanor. HEENT: Head shows normocephalic and atraumatic. Extraocular movements are intact and symmetrical. Oral cavity: Mucous membranes are moist and pink. Dentition is intact. NECK: Shows anterior throat is supple without palpable lymphadenopathy noted. Swallow reflex is symmetrical. CHEST: Shows normal on inspection. Breath sounds are clear to auscultation bilaterally. HEART: Shows S1 and S2 clear. No murmurs auscultated. ABDOMEN: Soft, nontender and nondistended. No palpable organomegaly. No rebound or guarding demonstrated. MUSCULOSKELETAL: Back shows spine grossly in the midline. Lumbar paraspinous muscle shows symmetrical on inspection with palpation shows some moderate tenderness only in the mid low lumbar distribution bilaterally and diffusely. No tenderness over the sacrum or sacroiliac regions. The patient has good rotational motion both laterally greater than 10 degrees right and left as well as extension greater than 10 degrees, forward flexion 45 degrees without significant pain reported. Lower extremities show deep tendon reflexes 1+ in the patellar and tendo calcaneus tendons. Motor exam is 5/5 with dorsiflexion and extension approximately 4 on a scale 5, but symmetrical with quadriceps and hamstring flexion. Peripheral pulses are 1+ posterior tibial. No peripheral edema is noted. No clubbing and no cyanosis. Lower extremities are warm and dry to touch, equal in color and appearance. Options were discussed with the patient. The patient's old chart was reviewed as was her current medication regimen updated. Current review of systems updated today as well. We will proceed with a third in the series of lumbar epidural steroid injection with fluoroscopic guidance. Risks were discussed including but not limited to bleeding, infection, possibility of epidural hematoma and subsequent neurological compromise, dural puncture, headaches, spinal cord and/or nerve damage, side effects of steroid medication and poor results regarding pain control. The patient understands and wished to proceed. The patient will return to the clinic in approximately 2 weeks for followup. She was counseled to return appointment, activity level and side effects to be aware of. DIAGNOSIS: Lumbar radiculopathy with lumbar degenerative disk disease and lumbar spondylosis. PROCEDURE: Lumbar epidural steroid injection, translaminar approach at the L5-S1 level using C-arm fluoroscopic guidance under sterile prep and drape using local anesthetic. MEDICATION INJECTED: Total of 120 mg Depo-Medrol plus 10 mL preservative free normal saline and 2 mL of Isovue for contrast. CONDITION ON DISCHARGE: Stable. The patient tolerated the procedure well and had no complications. MAYITO PEREZ MD DR: SHEEBA/yg JOB#: [id number] / [id number]
== END | disposition home or self-care (01) ==
LOC: PNCL 11:19
PROVIDERS: ATTEND Anesthesiology
DX: M51.16 Intervertebral disc disorders with radiculopathy, lumbar region (principal); M47.26 Other spondylosis with radiculopathy, lumbar region; E78.00 Pure hypercholesterolemia, unspecified; F41.9 Anxiety disorder, unspecified; F32.9 Major depressive disorder, single episode, unspecified; F17.200 Nicotine dependence, unspecified, uncomplicated; Z72.0 Tobacco use; Z88.0 Allergy status to penicillin; Z88.2 Allergy status to sulfonamides; Z88.8 Allergy status to other drugs, medicaments and biological substances
CPT/HCPCS: 62323; J1030; J1040

== ENCOUNTER → 2017-09-12 | Outpatient (CLI) | payer OTHER | END | disposition home or self-care (01) | LOC: KCIC MRI 11:02 | DX: M51.16 Intervertebral disc disorders with radiculopathy, lumbar region (principal); M48.061 Spinal stenosis, lumbar region without neurogenic claudication; E78.00 Pure hypercholesterolemia, unspecified; I10 Essential (primary) hypertension; F41.9 Anxiety disorder, unspecified; F32.9 Major depressive disorder, single episode, unspecified; Z87.39 Personal history of other diseases of the musculoskeletal system and connective tissue; Z72.0 Tobacco use; Z88.0 Allergy status to penicillin; Z88.2 Allergy status to sulfonamides | CPT/HCPCS: 72148 ==

== ENCOUNTER → 2017-12-01 | Outpatient (CLI) | payer OTHER | END | disposition home or self-care (01) | LOC: PNCL 08:46 | DX: M54.16 Radiculopathy, lumbar region (principal); Z98.890 Other specified postprocedural states; I10 Essential (primary) hypertension; E78.00 Pure hypercholesterolemia, unspecified; M19.90 Unspecified osteoarthritis, unspecified site; F32.9 Major depressive disorder, single episode, unspecified; F41.9 Anxiety disorder, unspecified; F17.210 Nicotine dependence, cigarettes, uncomplicated; Z79.899 Other long term (current) drug therapy | CPT/HCPCS: 99212 ==

== ENCOUNTER → 2017-12-21 | Outpatient (CLI) | payer OTHER ==
[~2017-12-21] MED LIST changes: -ACET-704 PO; -ADAL40KI SQ; -CLON0.5T3 PO; -DEXL60CA2 PO; -DULO30CA2 PO; -ESTR5VIA IM; -ETON68IM3 SQ; -FLUT9.9S NS; -HYDR-2762 PO; -HYDR-2766 PO; -IBUP-1060 PO; +IOHEXOL 180 MG/ML 10 ML VIAL.; -IOHEXOL 180 MG/ML 10 ML VIAL. ONE; -LANS30CA66 PO; -LISI1TAB5 PO; -METO50TA6 PO; -MONT10TA9 PO; -PREG150C PO; -TIZA4TAB PO; +methylPREDNISolone ACETATE 40 MG/ML VIAL.; -methylPREDNISolone ACETATE 40 MG/ML VIAL. ONE; +methylPREDNISolone ACETATE 80 MG/ML VIAL.; -methylPREDNISolone ACETATE 80 MG/ML VIAL. ONE
== END ==
LOC: PNCL 08:39
DX: M47.27 Other spondylosis with radiculopathy, lumbosacral region (principal); M79.1 Myalgia; Z88.0 Allergy status to penicillin; Z88.2 Allergy status to sulfonamides; Z88.1 Allergy status to other antibiotic agents
CPT/HCPCS: 62323; J1030; J1040; Q9965

== ENCOUNTER → 2018-01-03 | Day surgery (SDC) | payer OTHER ==
[~2018-01-03] MED LIST changes: -IOHEXOL 180 MG/ML 10 ML VIAL.; +LIDOCAINE 1% PF 2 ML VIAL. ID; +LIDOCAINE 2% PF Vial for OR 5 ML VIAL.; +MORPHINE SULFATE 4 MG/ML DISP.SYRIN. IV; +ONDANSETRON PF 4 MG/2 ML VIAL. IV; +PROCHLORPERAZINE 10 MG/2 ML VIAL. IV; +PROPOFOL 40 ML IV; +fentaNYL PF VIAL 100 MCG/2 ML VIAL IV; -methylPREDNISolone ACETATE 40 MG/ML VIAL.; -methylPREDNISolone ACETATE 80 MG/ML VIAL.
[2018-01-03] MEDS: IV RINGERS,LACTATED 1000ML 1,000 ML IV (07:50)
[2018-01-03 08:23] LABS: NEG OBC SER NEG; POS OBC SER POS; PREG TEST PT QUAL NEGATIVE (NEG)
== END | disposition home or self-care (01) ==
LOC: ENDOS 07:12
DX: K62.1 Rectal polyp (principal); K57.30 Diverticulosis of large intestine without perforation or abscess without bleeding; K52.9 Noninfective gastroenteritis and colitis, unspecified; K21.9 Gastro-esophageal reflux disease without esophagitis; D17.5 Benign lipomatous neoplasm of intra-abdominal organs; K50.00 Crohn's disease of small intestine without complications; M79.7 Fibromyalgia; E78.2 Mixed hyperlipidemia; F32.1 Major depressive disorder, single episode, moderate; F41.9 Anxiety disorder, unspecified; I10 Essential (primary) hypertension; M19.90 Unspecified osteoarthritis, unspecified site; G47.33 Obstructive sleep apnea (adult) (pediatric); E78.00 Pure hypercholesterolemia, unspecified; Z79.1 Long term (current) use of non-steroidal anti-inflammatories (NSAID); E66.01 Morbid (severe) obesity due to excess calories; Z68.43 Body mass index [BMI] 50.0-59.9, adult; Z79.899 Other long term (current) drug therapy; J30.9 Allergic rhinitis, unspecified; Z86.010 Personal history of colon polyps; Z87.19 Personal history of other diseases of the digestive system; M41.9 Scoliosis, unspecified; Z88.0 Allergy status to penicillin; D86.9 Sarcoidosis, unspecified; Z88.2 Allergy status to sulfonamides; Z88.1 Allergy status to other antibiotic agents; Z72.89 Other problems related to lifestyle; F17.200 Nicotine dependence, unspecified, uncomplicated
CPT/HCPCS: 43235; 45378; 45380; 45385; 84703; 88305; J2704

== ENCOUNTER → 2018-01-27 | Outpatient (CLI) | payer OTHER ==
[2018-01-27] MEDS: BARIUM SULFATE 60% 355 ML SUSP PO (10:00)
== END | disposition home or self-care (01) ==
LOC: RAD 09:55
DX: K50.90 Crohn's disease, unspecified, without complications (principal)
CPT/HCPCS: 74250

== ENCOUNTER → 2018-02-17 | Outpatient (CLI) | payer OTHER ==
[~2018-02-17] MED LIST changes: +IOHEXOL 180 MG/ML 10 ML VIAL.; +LIDOCAINE 1% PF 2 ML VIAL.; -LIDOCAINE 1% PF 2 ML VIAL. ID; -LIDOCAINE 2% PF Vial for OR 5 ML VIAL.; -MORPHINE SULFATE 4 MG/ML DISP.SYRIN. IV; -ONDANSETRON PF 4 MG/2 ML VIAL. IV; -PROCHLORPERAZINE 10 MG/2 ML VIAL. IV; -PROPOFOL 40 ML IV; -fentaNYL PF VIAL 100 MCG/2 ML VIAL IV; +methylPREDNISolone ACETATE 40 MG/ML VIAL.; +methylPREDNISolone ACETATE 80 MG/ML VIAL.
== END | disposition home or self-care (01) ==
LOC: PNCL 09:00
DX: M47.26 Other spondylosis with radiculopathy, lumbar region (principal); Z88.0 Allergy status to penicillin; Z88.1 Allergy status to other antibiotic agents; Z88.8 Allergy status to other drugs, medicaments and biological substances; E78.00 Pure hypercholesterolemia, unspecified; I10 Essential (primary) hypertension; G47.30 Sleep apnea, unspecified; E66.9 Obesity, unspecified; K21.9 Gastro-esophageal reflux disease without esophagitis; Z98.890 Other specified postprocedural states; M79.7 Fibromyalgia; M19.90 Unspecified osteoarthritis, unspecified site; F41.9 Anxiety disorder, unspecified; F32.9 Major depressive disorder, single episode, unspecified; Z72.89 Other problems related to lifestyle; F17.200 Nicotine dependence, unspecified, uncomplicated; Z87.19 Personal history of other diseases of the digestive system
CPT/HCPCS: 62323; J1030; J1040; Q9965

== ENCOUNTER → 2018-05-04 | Outpatient (CLI) | payer OTHER ==
[2018-01-03 09:17] VITALS: BP 132/69
[~2018-05-04] MED LIST changes: +ACET-704 PO; +ADAL40KI SQ; +CLON0.5T11 PO; +DEXL60CA2 PO; +DULO30CA2 PO; +ESTR5VIA IM; +ETON68IM3 SQ; +FLUT9.9S NS; +HYDR-2762 PO; +HYDR-2766 PO; +HYDR12.53 PO; +IBUP-1060 PO; -IOHEXOL 180 MG/ML 10 ML VIAL.; +LANS30CA66 PO; -LIDOCAINE 1% PF 2 ML VIAL.; +LISI1TAB5 PO; +LISI1TAB7 PO; +METO25TA4 PO; +METO50TA6 PO; +MONT10TA9 PO; +MULT-130 PO; +PREG150C PO; +PROAIR HFA8.5 GM INH; +TIZA4TAB PO; -methylPREDNISolone ACETATE 40 MG/ML VIAL.; -methylPREDNISolone ACETATE 80 MG/ML VIAL.
--- NOTE | 2018-05-04 23:11 | PAIN ---
DATE OF SERVICE: 05/04/2018 DIAGNOSES: 1. Lumbar radiculopathy with lumbar spondylosis. 2. Myofascial pain. HISTORY OF PRESENT ILLNESS: The patient is a 43-year-old female who returns for followup status post lumbar epidural steroid injection x 2. The patient did very well with about 90% improvement after her last injection which was on 02/17/2018. The patient reports the pain is beginning to return, actually it was much worse about a week ago, however, the pain has actually subsided to some extent at this point in the low back and in the bilateral lower extremities, right greater than left. The patient reports no new motor or sensory deficits, no new bowel or bladder incontinence or other complaints. Reports pain is aching, dull, tight, constant in intensity, but again better over the past few days. The patient reports it is 8 on a scale of 10 at its worst, 7 on an average, 6 at its least and is 6 today. The patient reports no new motor or sensory deficits, no new bowel or bladder incontinence. Reports it is better with lying down or sitting. It does not awaken her from sleep at night and much worse with standing or walking for greater than about 15-20 minutes. PHYSICAL EXAMINATION: VITAL SIGNS: The patient's blood pressure is ____, pulse 80, respirations are 18, temperature is 98.2 degrees Fahrenheit. Height is 6 feet, weight is 419 pounds. GENERAL: The patient is awake, alert, oriented, appropriate, very pleasant demeanor. HEENT: Head shows normocephalic, atraumatic. Extraocular movements intact and symmetrical. Oral cavity: Mucous membranes moist and pink. Dentition is intact. NECK: Shows anterior throat supple without palpable lymphadenopathy noted. Swallow reflex symmetrical. CHEST: Shows normal on inspection. Breath sounds clear to auscultation bilaterally. HEART: Shows S1, S2 clear. No murmurs auscultated. ABDOMEN: Soft, nontender, nondistended. No palpable organomegaly is noted. No rebound or guarding demonstrated. BACK: The patient's back shows spine grossly in the midline. Slightly exaggeration of thoracic kyphosis. Some minor flattening of lumbar lordotic curvature. Lumbar paraspinous muscle shows symmetrical on inspection, shows some mild tenderness with palpation bilaterally, but only diffusely without radiation. The patient has good rotational motion of lumbar spine, both laterally as well as extension and flexion without radiation. No tenderness over the sacrum or sacroiliac regions. EXTREMITIES: Lower extremities show deep tendon reflexes at 1+ in the patella and tendo calcaneus tendons. Motor exam is strong with dorsiflexion, extension ____ 4 on a scale of 5 on the right and 5/5 on the left. Peripheral pulses are 1+ bilaterally. Options were discussed with the patient. The patient's old chart was reviewed as was her current medication regimen updated, current review of systems updated today as well. We will hold on any further injections as she is still doing quite well. We will try Medrol Dosepak, which she will have on standby if necessary. If the pain begins to return, she will try this first per her choice and if not significantly improved, we will reschedule for lumbar epidural steroid injection at that time. The patient was encouraged to increase her activity as well as stretching and strengthening exercises. We also talked about some weight loss strategies and she will follow up as necessary as we discussed. MAYITO PEREZ MD DR: SHEEBA/yg JOB#: [id number] / [id number]
== END | disposition home or self-care (01) ==
LOC: PNCL 13:51
PROVIDERS: ATTEND Anesthesiology
DX: M54.16 Radiculopathy, lumbar region (principal); M47.896 Other spondylosis, lumbar region; I10 Essential (primary) hypertension; E78.2 Mixed hyperlipidemia; E78.00 Pure hypercholesterolemia, unspecified; K21.9 Gastro-esophageal reflux disease without esophagitis; M79.1 Myalgia; Z87.39 Personal history of other diseases of the musculoskeletal system and connective tissue; Z87.19 Personal history of other diseases of the digestive system; Z86.010 Personal history of colon polyps; Z68.43 Body mass index [BMI] 50.0-59.9, adult; Z88.2 Allergy status to sulfonamides; Z88.0 Allergy status to penicillin; Z88.1 Allergy status to other antibiotic agents; Z88.8 Allergy status to other drugs, medicaments and biological substances
CPT/HCPCS: 99212

== ENCOUNTER → 2018-06-21 | Outpatient (CLI) | payer OTHER ==
[2018-01-03 09:17] VITALS: BP 132/69
[~2018-06-21] MED LIST changes: +AMLO5TAB7 PO; +IOHEXOL 180 MG/ML 10 ML VIAL. ONE; +LIDOCAINE 1% PF 2 ML VIAL. ONE; +methylPREDNISolone ACETATE 40 MG/ML VIAL. ONE; +methylPREDNISolone ACETATE 80 MG/ML VIAL. ONE
--- NOTE | 2018-06-21 19:24 | PAIN ---
DATE OF SERVICE: 06/21/2018 PROGRESS NOTE FOR PAIN CLINIC DIAGNOSIS: Lumbar radiculopathy with lumbar spondylosis. HISTORY OF PRESENT ILLNESS: The patient is a 43-year-old female who returns for followup status post lumbar epidural steroid injections x 2, last injection was on 02/17/2018. The patient has been doing very well with this. We tried Medrol Dosepak in April, which helped as well, but the pain is returning now across the low back and to the bilateral lower extremities, somewhat more in the right than the left at this time, worse with standing, walking, changing positions, but did very well after last injection about 90% improvement for about a month and a half. The patient reports now the pain is across the low back, constant, aching, dull, tight, was worse about a week ago, has gotten better a little on its own, rates it as a 7 on a scale of 10 at its worst, 4 on average and rates it as a 3 on a scale of 10 at its least and is a 4 today. The patient reports no new motor or sensory deficits, better with sitting or lying down, worse with standing, walking, changing positions. Originally, she was doing much better with distance walking, able to do household activities and traveling without difficulty, sleeping well at night, it does not awaken her from sleep. PHYSICAL EXAMINATION: VITAL SIGNS: The patient's blood pressure is 177/102, pulse 61, respirations 18, temperature 98.5 degrees Fahrenheit, height 6 feet, weight is 418 pounds. GENERAL: The patient is awake, alert, oriented, appropriate, very pleasant demeanor. HEENT: Head shows normocephalic, atraumatic. Extraocular movements are intact, symmetrical. Oral cavity: Mucous membranes moist and pink. Dentition is intact. NECK: Shows anterior throat supple without palpable lymphadenopathy noted. Swallow reflex is symmetrical. CHEST: Shows normal on inspection. Breath sounds clear to auscultation bilaterally. HEART: Shows S1, S2 clear. No murmurs auscultated. ABDOMEN: Obese, soft, nontender, nondistended. No palpable organomegaly is noted. No rebound or guarding demonstrated. BACK: Shows spine grossly in the midline. Normal thoracic kyphosis, some minor flattening of lumbar lordotic curvature. Lumbar paraspinous muscle shows symmetrical on inspection, on palpation shows some moderate tenderness bilaterally, but only diffusely in the lower lumbar distribution without radiation. EXTREMITIES: The patient's lower extremities show deep tendon reflexes at 1+ in the patellar and tendo-calcaneus tendons. Motor exam is approximately 4 on a scale 5 on the right, 5/5 on the left with dorsiflexion, extension, quadriceps and hamstring flexion and symmetrical. Peripheral pulses are 1+ posterior tibia. No peripheral edema is noted bilaterally. Options were discussed with the patient. The patient's old chart was reviewed as her current medication regimen updated. Current review of systems updated today as well. We will proceed with lumbar epidural steroid injection as a third in this series with fluoroscopic guidance. Risks were again discussed including, but not limited to bleeding, infection, possibility of epidural hematoma, subsequent neurological compromise, dural puncture, headaches, spinal cord and/or nerve damage, side effects of steroid medication and poor results regarding pain control. The patient understands and wished to proceed. The patient will return to clinic in approximately 2 weeks for followup. She was counseled to return appointment, activity level and side effects to be aware of. DIAGNOSIS: Lumbar radiculopathy with lumbar spondylosis. PROCEDURE: Lumbar epidural steroid injection, translaminar approach at L4-L5 level using C-arm fluoroscopic guidance under sterile prep and drape using local anesthetic. MEDICATION INJECTED: A total of 120 mg Depo-Medrol plus 10 mL of preservative-free normal saline and 2 mL of Isovue for contrast. CONDITION AT DISCHARGE: Stable. The patient tolerated the procedure well, had no complications. MAYITO PEREZ MD DR: SHEEBA/yg JOB#: [id number] / [id number]
== END | disposition home or self-care (01) ==
LOC: PNCL 08:35
PROVIDERS: ATTEND Anesthesiology
DX: M47.26 Other spondylosis with radiculopathy, lumbar region (principal); Z88.0 Allergy status to penicillin; Z88.2 Allergy status to sulfonamides; Z88.1 Allergy status to other antibiotic agents; Z88.8 Allergy status to other drugs, medicaments and biological substances
CPT/HCPCS: 62323; J1030; J1040; Q9965

== ENCOUNTER → 2018-08-31 | Outpatient (CLI) | payer OTHER ==
[2018-01-03 09:17] VITALS: BP 132/69
[~2018-08-31] MED LIST changes: +ALBU2.5V8 INH; -HYDR-2762 PO; +HYDR-2765 PO; -HYDR-2766 PO; +HYDR-2769 PO; -HYDR12.53 PO; +HYDR12.575 PO; -IOHEXOL 180 MG/ML 10 ML VIAL. ONE; -LIDOCAINE 1% PF 2 ML VIAL. ONE; -PROAIR HFA8.5 GM INH; -methylPREDNISolone ACETATE 40 MG/ML VIAL. ONE; -methylPREDNISolone ACETATE 80 MG/ML VIAL. ONE
--- NOTE | 2018-08-31 18:42 | PAIN ---
DATE OF SERVICE: 08/31/2018 DIAGNOSES: Lumbar radiculopathy with lumbar and lumbosacral spondylosis. HISTORY OF PRESENT ILLNESS: The patient is a 43-year-old female who returns for followup status post lumbar epidural steroid injection x 3, last seen on 06/21/2018. The patient did very well with this with about 95% improvement, which is currently helping in the low back and into the bilateral lower extremities, right greater than left. The patient reports again needs to return now, but is still doing quite a bit better. She has been increasing her activities at work as well as the distance walking, household activities. The patient reports the pain is a 4 on a scale of 10 at its worst, 3 on average, 2 at its least and is a 3 today. The patient reports it is aching, dull, tight, radiating to the right lower extremity, mostly in the posterior gluteus, posterior thigh on the right side. The patient reports pain in the low back as well with rotation, especially extension and axial loading of the lumbar spine on the right side only, but not the left. The patient reports it is waking her from sleep, but only about every 4-6 hours if it does at all, most nights it is not. The patient reports no new motor or sensory deficits, no new bowel or bladder incontinence or other complaints. The patient reports she is scheduled to have weight loss gastric sleeve surgery tomorrow and is somewhat nervous about this and is looking forward to the procedure being over with also. PHYSICAL EXAMINATION: VITAL SIGNS: The patient's blood pressure 147/85, pulse 64, respirations 16, temperature 98.0 degrees Fahrenheit, height is 6 feet, weight is 399 pounds. GENERAL: She is awake, alert, oriented, appropriate, very pleasant demeanor. HEENT: Shows normocephalic, atraumatic. Extraocular movements are intact and symmetrical. Oral cavity: Mucous membranes moist and pink. Dentition is intact. NECK: Shows anterior throat supple without palpable lymphadenopathy noted. Swallow reflex is symmetrical. CHEST: Shows normal on inspection. Breath sounds clear to auscultation bilaterally. HEART: Shows S1, S2 clear. No murmurs auscultated. ABDOMEN: Soft, nontender, nondistended. No palpable organomegaly is noted. No rebound or guarding demonstrated. BACK: Shows spine grossly in the midline. Normal appearing thoracic kyphosis and lumbar lordotic curvature. Lumbar paraspinous muscle shows symmetrical on inspection. On palpation shows some moderate tenderness diffusely bilaterally, but only diffusely without radiation. The patient has good rotational motion, increased pain with extension only on the right side in the low back itself. It is better with forward flexion. Right lateral rotation causes this, but not to the extension of 10 degrees. Left lateral rotation is nontender past 10 degrees. EXTREMITIES: The patient's lower extremities show deep tendon reflexes 1+ in the patellar and tendo calcaneus tendons. Motor exam is approximately 4 on a scale 5, but equal and symmetrical bilaterally with dorsiflexion, extension, quadriceps and hamstring flexion. Peripheral pulses are 1+ posterior tibial and no peripheral edema is noted bilaterally. Options were discussed with the patient. The patient's old chart was reviewed as is her current medication regimen updated. Current review of systems is updated today as well and we will proceed with the preauthorization for additional lumbar epidural steroid injection. The patient has radicular pain in the L4-L5 dermatomal distribution in the right leg greater than left. The patient also with some axial loading pain and facet pain on the right side as well. The patient reports that she has insurance, which is changing after 09/05/2018 and we will wait for the information regarding this for preauthorization and submit this again. The patient having weight loss surgery tomorrow and will follow up once she has recovered. MAYITO PEREZ MD DR: SHEEBA/yg JOB#: [id number] / [id number]
== END | disposition home or self-care (01) ==
LOC: PNCL 08:37
PROVIDERS: ATTEND Anesthesiology
DX: M47.27 Other spondylosis with radiculopathy, lumbosacral region (principal)
CPT/HCPCS: G0463

== ENCOUNTER → 2018-10-19 | Outpatient (CLI) | payer OTHER ==
[2018-01-03 09:17] VITALS: BP 132/69
[~2018-10-19] MED LIST changes: +AMLO5TAB10 PO; -AMLO5TAB7 PO; +AZEL23SP NS; +CHOL4POW2 PO
--- NOTE | 2018-10-19 15:07 | PAIN ---
DATE OF SERVICE: 10/19/2018 PROGRESS NOTE FOR PAIN CLINIC DIAGNOSES: 1. Lumbar radiculopathy with lumbar and lumbosacral spondylosis. 2. Myofascial pain. HISTORY OF PRESENT ILLNESS: The patient is a 43-year-old female who returns for followup status post lumbar epidural steroid injection as well as facet joint injection. The patient reports she did very well for the last injection, which was 06/21/2018 with about 95% improvement for about one month. The patient reports the pain is still doing better. When she made her appointment, the pain was increasing in her low back and bilateral lower extremities, but now is doing much better. The patient reports she still has an aching on the right side of the low back, which responded well to facet joint injections and the pain in the lower extremities, again worse on the left than the right, which has been more noticeable lately, but is doing much better over the last week or so. The patient reports her pain is a 5 on a scale of 10 at its worst, 3 on average, 1 at its least and is a 3 today. The patient reports it is sharp, dull, tight, shooting, cramping, stabbing, tingling, radiating, on and off in intensity and again doing much better. The patient has had a recent gastric sleeve weight loss surgery and still has some difficulty with some esophageal dysphagia, but otherwise doing fairly well. She has lost about 30 pounds since her last visit. The patient reports no new motor or sensory deficits, no new bowel or bladder incontinence or other complaints. PHYSICAL EXAMINATION: VITAL SIGNS: The patient's blood pressure is 152/111, pulse 91, respirations 16, temperature 98.2 degrees Fahrenheit, height is 6 feet, weight is 366 pounds. GENERAL: The patient is awake, alert, oriented, appropriate, very pleasant demeanor. HEENT: Head shows normocephalic, atraumatic. Extraocular movements are intact and symmetrical. Oral cavity: Mucous membranes are moist and pink. Dentition is intact. NECK: Shows anterior throat supple without palpable lymphadenopathy noted. Swallow reflex is symmetrical. CHEST: Shows normal on inspection. Breath sounds are clear to auscultation bilaterally. HEART: Shows S1, S2 clear. ABDOMEN: Obese, soft, nontender, nondistended. No palpable organomegaly is noted. No rebound or guarding demonstrated. BACK: Shows spine grossly in the midline. Normal appearing thoracic kyphosis. Some slight flattening of lumbar lordotic curvature. Lumbar paraspinous muscle shows symmetrical on inspection, with palpation shows some moderate tenderness in the middle and lower distribution of the paraspinous muscles, but only diffusely without radiation. The patient has good rotational motion both laterally as well as extension and flexion without difficulty. EXTREMITIES: Lower extremities show deep tendon reflexes 1+ in the patellar and tendo-calcaneus tendons are equal. Motor exam is approximately 4 on a scale of 5 with dorsiflexion, extension, quadriceps and hamstring flexion and symmetrical. Peripheral pulses are 1+ posterior tibia. No peripheral edema is noted. Options were discussed with the patient. The patient's old chart was reviewed as her current medication regimen updated, current review of systems updated today as well. We will hold on further injections at this time as she is doing quite a bit better. The patient also has new insurance provider. She would like to wait on further injections at this time. We will have her return on an as needed basis currently. Encouraged increased activity as tolerated as well as walking daily, stretching and strengthening exercises, which she has been doing already and to follow up with her weight loss surgeon regarding her dysphagia. The patient also was cautioned as to her blood pressure, which is quite high. She will follow up with her primary care physician regarding her hypertension as well. MAYITO PEREZ MD DR: SHEEBA/yg JOB#: [id number] / [id number]
== END | disposition home or self-care (01) ==
LOC: PNCL 10:27
PROVIDERS: ATTEND Anesthesiology
DX: M54.16 Radiculopathy, lumbar region (principal); M47.896 Other spondylosis, lumbar region; M47.897 Other spondylosis, lumbosacral region; M79.18 Myalgia, other site; I10 Essential (primary) hypertension
CPT/HCPCS: G0463

== ENCOUNTER → 2018-12-06 | Outpatient (CLI) | payer OTHER ==
[2018-01-03 09:17] VITALS: BP 132/69
[~2018-12-06] MED LIST changes: +IOHEXOL 180 MG/ML 10 ML VIAL. ONE; +methylPREDNISolone ACETATE 40 MG/ML VIAL. ONE; +methylPREDNISolone ACETATE 80 MG/ML VIAL. ONE
--- NOTE | 2018-12-07 00:41 | PAIN ---
DATE OF SERVICE: 12/06/2018 PROGRESS NOTE FOR PAIN CLINIC DIAGNOSIS: Lumbar radiculopathy with lumbar spondylosis. HISTORY OF PRESENT ILLNESS: The patient is a 43-year-old female who returns for followup status post both trigger points and lumbar epidural steroid injections. The patient most recently had one in June 2018 and did well with the procedure initially with about 95% improvement. The patient reports the pain has been returning over the past 2 months or so. She did have recent hysterectomy about 2 weeks ago, also has had weight loss surgery since the beginning of the year, reports she is doing well. She is losing some weight, about 75 pounds overall by her estimation. She still has some pain returning, however, in the low back bilaterally, into the right lower extremity, mostly in the posterior gluteus, posterior lateral thigh, lateral anterior thigh and medial knee on the right side more than the left, but present bilaterally. The patient reports occasional pain shooting into the lower leg, but mostly just to the medial knee, more on the right than the left bilaterally, worse with standing and walking, essentially the patient reports when she is standing in the shower, when she is not walking around as much, she is standing still, does seem to cause more pain at that time. When she is able to change positions or move or change activity, she does decrease the pain moderately. The patient reports it is better with sitting or lying down. It does not awaken her from sleep at night. Describes the pain as aching and dull, tight, constant and shooting in the lower extremities, again worse on the right side. The patient reports no new motor or sensory deficits. No new bowel or bladder incontinence. Rates the pain at an 8 on a scale of 10 at its worst, 6 on average, 4 at its least and is a 4 today. PHYSICAL EXAMINATION: VITAL SIGNS: The patient's blood pressure is 134/92, pulse 84, respirations 18, temperature 98.5 degrees Fahrenheit. Height is 5 feet 10 inches, weight is 340 pounds. GENERAL: The patient is awake, alert, oriented, appropriate, very pleasant demeanor. HEENT: Head shows normocephalic, atraumatic. Extraocular muscles are intact and symmetrical. Oral cavity: Mucous membranes are moist and pink. Dentition is intact. NECK: Shows anterior throat supple without palpable lymphadenopathy noted. Swallow reflex is symmetrical. CHEST: Shows normal with inspection. Breath sounds clear to auscultation bilaterally. HEART: Shows S1, S2 clear. No murmurs auscultated. ABDOMEN: Soft, nontender, nondistended, still obese, but no organomegaly is noted. No rebound or guarding demonstrated. BACK: Shows spine grossly in the midline. Normal appearing thoracic kyphosis and lumbar lordotic curvature slightly flattened. Lumbar paraspinous muscle shows symmetrical on inspection, on palpation shows some moderate tenderness diffusely, but only moderately without radiation. The patient has good rotational motion both laterally as well as extension and flexion without difficulty. EXTREMITIES: Lower extremities show deep tendon reflexes 1+ in the patellar and tendo calcaneus tendons. Motor exam is strong with 4 on a scale of 5 dorsiflexion, extension, but symmetrical and equal, right and left. Peripheral pulses are 1+ posterior tibial. No peripheral edema is noted bilaterally. Options were discussed with the patient. The patient's old chart was reviewed as her current medication regimen updated. Current review of systems updated today as well. We will proceed with a first in this series of lumbar epidural steroid injection today with fluoroscopic guidance. Risks were again discussed including, but not limited to, bleeding, infection, possibility of epidural hematoma, subsequent neurological compromise, dural puncture, headaches, spinal cord and/or nerve damage, side effects of steroid medication and poor results regarding pain control. The patient understands and wished to proceed. The patient to return to clinic in approximately 2 weeks for followup, was counseled as to return appointment, activity level and side effects to be aware of. DIAGNOSIS: Lumbar radiculopathy with lumbar spondylosis. PROCEDURE: Lumbar epidural steroid injection, translaminar approach L4-L5 level using C-arm fluoroscopic guidance under sterile prep and drape using local anesthetic. MEDICATION INJECTED: A total of 120 mg Depo-Medrol plus 10 mL preservative-free normal saline and 2 mL of Isovue for contrast. CONDITION AT DISCHARGE: Stable. The patient tolerated procedure well, had no complications. MAYITO PEREZ MD DR: SHEEBA/yg JOB#: [id number] / [id number]
== END | disposition home or self-care (01) ==
LOC: PNCL 11:12
PROVIDERS: ATTEND Anesthesiology
DX: M47.26 Other spondylosis with radiculopathy, lumbar region (principal); Z88.0 Allergy status to penicillin; Z88.2 Allergy status to sulfonamides; Z88.8 Allergy status to other drugs, medicaments and biological substances
CPT/HCPCS: 62323; J1030; J1040; Q9965

== ENCOUNTER → 2019-01-25 | Outpatient (CLI) | payer OTHER ==
[2018-01-03 09:17] VITALS: BP 132/69
[~2019-01-25] MED LIST changes: -IOHEXOL 180 MG/ML 10 ML VIAL. ONE; -methylPREDNISolone ACETATE 40 MG/ML VIAL. ONE; -methylPREDNISolone ACETATE 80 MG/ML VIAL. ONE
--- NOTE | 2019-01-25 10:42 | KCIC ---
Esophagram 01/25/2019 CLINICAL HISTORY: Dysphagia for the last 4 months post gastric sleeve surgery in August of last year. TECHNIQUE: An esophagram was performed under fluoroscopic control. The total fluoroscopic time for this study is 2 minutes 41 seconds. 7 digital spot radiographs were obtained. FINDINGS: The mucosal pattern of the hypopharynx, esophagus and GE junction is within normal limits. The swallowing mechanism is within normal limits. No laryngeal penetration or tracheal aspiration is seen. Tertiary contractions of esophagus are seen consistent with mild to moderate esophageal dysmotility. There is a very small sliding hiatal hernia. No gastroesophageal reflux is seen. Surgical changes are seen involving the stomach consistent with the patient's history of gastric sleeve surgery. No obstruction of contrast is noted. IMPRESSION: 1. Mild to moderate esophageal dysmotility. 2. Very small sliding hiatal hernia. Electronically signed by: Evangelista Barros MD (01/25/2019 10:39 AM) [facility]
== END | disposition home or self-care (01) ==
LOC: KCIC 08:31
PROVIDERS: ATTEND Physician Assistant
DX: K22.4 Dyskinesia of esophagus (principal); K44.9 Diaphragmatic hernia without obstruction or gangrene
CPT/HCPCS: 74220

== ENCOUNTER → 2019-02-08 | Day surgery (SDC) | payer OTHER ==
[~2019-02-08] MED LIST changes: +IV RINGERS,LACTATED 1000ML 1,000 ML IV SCH; +LIDOCAINE 2% PF 5 ML VIAL. ONE; +PROPOFOL 40 ML IV ONE
[2019-02-08 11:21] VITALS: BP 160/78
--- NOTE | 2019-02-09 14:06 | PATHOLOGY ---
[facility] Accession Number: [id number] . 01 Material submitted: . PART A: small bowel - SMALL BOWEL BIOPSY PART B: stomach - ANTRUM NODULE PART C: esophagus - DISTAL ESOPHAGUS BIOPSY. Modifiers: distal PART D: esophagus - MID ESOPHAGUS BIOPSY. Modifiers: mid . 01 Clinical history: . Dysphagia . 02 Diagnosis: A. Small bowel biopsies: - No significant pathologic abnormalities. . B. Gastric biopsies, antral nodule: - Polypoid segments of gastric mucosa showing mild chronic inflammation and minute focus of intestinal metaplasia. . C. Esophageal biopsies, distal esophagus: - Segments of esophagogastric and gastric mucosa showing chronic inflammation. . D. Esophageal biopsies, middle esophagus: - Segments of mildly hyperplastic squamous esophageal mucosa identified. (JPM:yolande; 02/09/2019) QMS/02/09/2019 . 02 Comment: Sections of the small bowel biopsy reveal segments of duodenal and small intestine mucosa. Where best oriented, the mucosal villi show no sprue-like changes or significant inflammatory changes. . Sections of the gastric antral nodule biopsy reveal polypoid segments of gastric antral/body transition mucosa showing congestion, mild chronic inflammation, and minute focus of intestinal metaplasia. A properly controlled immunoperoxidase stain for Helicobacter is negative for Helicobacter organisms. . Sections of the distal esophageal biopsy reveal segments of esophagogastric and gastric mucosa showing mild to moderate chronic inflammation. There is no evidence of Muñoz's change, dysplasia, or malignancy. . Sections of the middle esophageal biopsy reveal segments of tangentially oriented, mildly hyperplastic squamous esophageal mucosa. There is no evidence of Muñoz's change, dysplasia, or malignancy. (JPM:yolande; 02/09/2019) . . Special stain performed: Immunoperoxidase stain for Helicobacter on B1. . 02 Electronically signed: . Camilo Peacock MD, Pathologist NPI- [id number] . 01 Gross description: . A. Received in formalin labeled "Emilia Jackman, small bowel biopsy," are 5 segments of pardo soft tissue measuring 1.5 x 0 1.3 x 0.2 cm in aggregate dimensions and ranging from 0.3 to 0.6 cm in maximum dimension. The specimen is submitted entirely in cassette A1. . B. Received in formalin labeled "Emilia Jackman, antrum nodule," are 2 segments of pardo soft tissue measuring 0.7 x 0.3 x 0.2 cm in aggregate dimensions and ranging from 0.3 to 0.4 cm in maximum dimension. The specimen is submitted entirely in cassette B1. . C. Received in formalin labeled "Emilia Jackman, distal esophagus biopsy," is a single segment of pardo soft tissue measuring 0.5 cm in maximum dimension. The specimen is entirely submitted in cassette C1. . D. Received in formalin labeled "Emilia Jackman, mid esophagus biopsy," are 2 segments of pardo soft tissue measuring 0.7 x 0.2 x 0.1 cm in aggregate dimensions and ranging from 0.2 to 0.5 cm in maximum dimension. The specimen is submitted entirely in cassette D1. (TSD; 02/08/2019) TOB/TOB . 02 Pathologist provided ICD-10: K29.50, K20.9, R13.10 . 02 CPT . 750326, 803254, 571007, 399640, [id number] Specimen Comment: A courtesy copy of this report has been sent to Specimen Comment: [phone], . Specimen Comment: Report sent to / DR WILLETT Performed at: [facility] [address], [place] [id number] MD Micky Zuniga MD Phone: [phone] Performed at: 02 [facility] [address], [place] [id number] MD Camilo Peacock MD Phone: [phone]
== END ==
LOC: ENDOS 09:04
PROVIDERS: ATTEND Internal Medicine Gastroenterology
DX: K29.50 Unspecified chronic gastritis without bleeding (principal); K21.0 Gastro-esophageal reflux disease with esophagitis; K44.9 Diaphragmatic hernia without obstruction or gangrene; K31.89 Other diseases of stomach and duodenum; I10 Essential (primary) hypertension; E78.00 Pure hypercholesterolemia, unspecified; F41.9 Anxiety disorder, unspecified; F32.9 Major depressive disorder, single episode, unspecified; M19.90 Unspecified osteoarthritis, unspecified site; M79.7 Fibromyalgia; G47.33 Obstructive sleep apnea (adult) (pediatric); K50.90 Crohn's disease, unspecified, without complications; E66.3 Overweight; Z72.0 Tobacco use; Z88.0 Allergy status to penicillin; Z88.2 Allergy status to sulfonamides; Z79.899 Other long term (current) drug therapy; Z90.3 Acquired absence of stomach [part of]; Z98.890 Other specified postprocedural states
CPT/HCPCS: 43239; 43450; 88305; 88342; J2001; J2704

== ENCOUNTER → 2019-03-23 | Outpatient (CLI) | payer OTHER ==
[2019-02-08 11:21] VITALS: BP 160/78
[~2019-03-23] MED LIST changes: -IV RINGERS,LACTATED 1000ML 1,000 ML IV SCH; -LIDOCAINE 2% PF 5 ML VIAL. ONE; +MONT10TA49 PO; -MONT10TA9 PO; -PROPOFOL 40 ML IV ONE
--- NOTE | 2019-03-23 13:35 | RAD ---
Gastric emptying nuclear medicine study History:Nausea and vomiting for 8 months. Technique: After oral ingestion of an egg meal containing 2 mCi of technetium 99m sulfur colloid, anterior and posterior planar images of the upper abdomen were performed immediately and at 1 hour and 2 hour and 3 hour and 4 hour increments. Percent retention of radiotracer activity was measured and calculated at 1 hour and 2 hour and 3 hour and 4 hour increments. Half time gastric clearance was measured and calculated. Findings: Percent retention at 1 hour is 62%. Normal range is 34.8% to 91%. Percent retention at 2 hours is 2%. Normal range is 2.7% to 60%. Percent retention at 3 hours is 0%. Normal range is 0.5% to 28%. Percent retention at 4 hours is 0%. Normal range is 0% to 10%. Half time gastric clearance is 68 minutes. Normal is 45-90 minutes. Impression: No delay in gastric emptying is seen. Electronically signed by: Carlitos Hampton MD (03/23/2019 1:32 PM) [facility]
== END | disposition home or self-care (01) ==
LOC: NM 08:00
PROVIDERS: ATTEND Physician Assistant
DX: R11.2 Nausea with vomiting, unspecified (principal)
CPT/HCPCS: 78264; A9541

== ENCOUNTER → 2019-04-19 | Outpatient (CLI) | payer MEDICAID ==
[2019-02-08 11:21] VITALS: BP 160/78
[~2019-04-19] MED LIST changes: +HYOS0.1264 PO; +PREG200C PO; -TIZA4TAB PO; +TIZA4TAB2 PO
--- NOTE | 2019-04-19 14:36 | PAIN ---
DATE OF SERVICE: 04/19/2019 PROGRESS NOTE FOR PAIN CLINIC DIAGNOSES: 1. Lumbar radiculopathy with lumbar spondylosis. 2. Myofascial pain. SUBJECTIVE: The patient is a 44-year-old female who returns for followup status post lumbar epidural steroid injection on 12/06/2018. The patient did very well with this, with approximately 90% improvement for the first month. The patient reports the pain has been returning, but is on and off in intensity, some days better than others, worse with walking, activity, change in positions but she has been doing overall better. The patient reports she has lost 130 pounds now. She had a weight loss surgery and still has some difficulty with esophageal sphincter issues, but she is losing a lot of weight and she tends to think this makes her back feel better as well. The patient reports that the pain is aching and dull, tight across the low back, on and off in intensity and today is 1 on a scale of 10. The patient reports that on average is about 3, its worst over the past week and is 4, and today is 1 as well. The patient reports no new motor or sensory deficit, has been increasing her household activities with greater ease and comfort, traveling with better ease, and sleeping better at night. PHYSICAL EXAMINATION: VITAL SIGNS: The patient's blood pressure is 130/95, pulse 72, respirations are 16, temperature 97.9 degrees Fahrenheit. Height is 6 feet 0 inches. Weight is 298 pounds. GENERAL: The patient is awake, alert, oriented, appropriate, very pleasant demeanor. HEENT: Shows normocephalic, atraumatic. Extraocular movements are intact and symmetrical. Oral cavity: Mucous membranes moist and pink. Dentition is intact. NECK: Shows anterior throat supple without palpable lymphadenopathy noted. Swallow reflex symmetrical. CHEST: Shows normal on inspection. Breath sounds clear to auscultation bilaterally. HEART: Shows S1, S2 clear. No murmurs auscultated. ABDOMEN: Soft, nontender, and nondistended. BACK: Shows spine grossly in the midline, slight exaggerated thoracic kyphosis and minor flattening of the lumbar lordotic curvature. Lumbar paraspinous muscle shows symmetrical on inspection, with palpation shows some mild tenderness but only very mildly throughout the upper, middle and lower distribution of paraspinous muscles, but are symmetrical without trigger points, without atrophy, hypertrophy or asymmetry. EXTREMITIES: The patient's lower extremities show deep tendon reflexes 1+ in the patellar and tendo calcaneus tendons. Motor exam is approximately 4 on a scale of 5 and symmetrical bilaterally. Options were discussed with the patient. The patient's old chart was reviewed, as her current medication regimen updated. Current review of systems is updated today as well. We will hold on any further injections at this time as she is doing quite a bit better. We would like to increase her activity. She can continue with her current weight loss program and we would like to see how she does with this. The patient will follow up on an as needed basis. The patient was also given prescription for Tylenol No. 3 with instructions, side effects to be aware of discussed as she has been taking some hydrocodone, but she feels that this is too strong for her and has been giving her some headaches. We will try this. Again, the patient was cautioned as to the medication and she will follow up as needed or at 1-month, whichever comes first. MAYITO PEREZ MD DR: SHEEBA/yg JOB#: [id number] / [id number]
== END | disposition home or self-care (01) ==
LOC: PNCL 09:36
PROVIDERS: ATTEND Anesthesiology
DX: M47.26 Other spondylosis with radiculopathy, lumbar region (principal); M40.294 Other kyphosis, thoracic region; M40.46 Postural lordosis, lumbar region; M54.5 Low back pain; M79.18 Myalgia, other site
CPT/HCPCS: G0463

== ENCOUNTER → 2019-05-17 | Outpatient (CLI) | payer MEDICAID ==
[2019-02-08 11:21] VITALS: BP 160/78
[~2019-05-17] MED LIST changes: +CLON-77 PO; -CLON0.5T11 PO; +IOHEXOL 180 MG/ML 10 ML VIAL. ONE; +LISI1TAB19 PO; +LISI1TAB20 PO; -LISI1TAB5 PO; -LISI1TAB7 PO; +methylPREDNISolone ACETATE 40 MG/ML VIAL. ONE; +methylPREDNISolone ACETATE 80 MG/ML VIAL. ONE
--- NOTE | 2019-05-18 07:55 | PAIN ---
DATE OF SERVICE: 05/17/2019 PROGRESS NOTE FOR PAIN CLINIC DIAGNOSES: Lumbar radiculopathy with lumbar spondylosis and myofascial pain. HISTORY OF PRESENT ILLNESS: The patient is a 44-year-old female who returns for followup status post lumbar epidural steroid injection x 1 on 12/06. The patient returns today with still significant pain in the low back and into the left lower extremity greater than right in the posterior gluteus, posterior thigh, traveling into the posterior calf. The patient reports it is aching, sharp, dull, tight, shooting, on and off in intensity, worse with walking, standing, changing positions, better with sitting or lying down, but says almost no pain with lying down. She reports it does not awaken her from sleep at night. The patient rates her pain as a 4 on a scale of 10 at its worst, 3 on average, 2 at least and is a 3 today. The patient reports no new motor or sensory deficits, no new bowel or bladder incontinence. PHYSICAL EXAMINATION: VITAL SIGNS: The patient's blood pressure is 173/110, pulse 66, respirations are 18, temperature 98.2 degrees Fahrenheit, height is 6 feet and weight is 293 pounds. GENERAL: The patient is awake, alert, oriented, appropriate, very pleasant demeanor. HEENT: Shows normocephalic, atraumatic. Extraocular movements are intact and symmetrical. Oral cavity: Mucous membranes moist and pink. Dentition is intact. NECK: Shows anterior throat supple without palpable lymphadenopathy noted. Swallow reflex symmetrical. CHEST: Shows normal on inspection. Breath sounds clear to auscultation bilaterally. HEART: Shows S1, S2 clear. No murmurs auscultated. ABDOMEN: Soft, nontender, nondistended. No palpable organomegaly is noted. No rebound or guarding demonstrated. BACK: Shows spine grossly in the midline. Normal appearing thoracic kyphosis and lumbar lordotic curvature. Lumbar paraspinous muscle shows symmetrical on inspection, on palpation shows some moderate tenderness diffusely bilaterally, but only diffusely without radiation. EXTREMITIES: The patient's lower extremities show deep tendon reflexes at 1+ in the patellar and tendo calcaneus tendons. Motor exam is strong with 4/5 dorsiflexion, extension, quadriceps and hamstring flexion and peripheral, but equal and symmetrical bilaterally. PLAN: Options were discussed with the patient. The patient's old chart was reviewed as her current medication regimen updated. Current review of system updated today as well and we will proceed with a second in this series of lumbar epidural steroid injection today with fluoroscopic guidance. Risks were again discussed including, but not limited to bleeding, infection, possibility of epidural hematoma, subsequent neurological compromise, dural puncture, headaches, spinal cord and/or nerve damage, side effects of steroid medication and poor results regarding pain control. The patient understands and wished to proceed. The patient will return to clinic in approximately 2 weeks for followup. She was counseled as to return appointment, activity level and side effects to be aware of. DIAGNOSIS: Lumbar radiculopathy with lumbar spondylosis. PROCEDURE: Lumbar epidural steroid injection, translaminar approach at the L4-L5 level using C-arm fluoroscopic guidance under sterile prep and drape using local anesthetic. MEDICATION INJECTED: A total of 120 mg Depo-Medrol plus 10 mL of preservative-free normal saline and 2 mL of contrast. CONDITION AT DISCHARGE: Stable. The patient tolerated the procedure well, had no complications. The patient also was questioning her hydrocodone use. She has been taking hydrocodone 10 mg and has been on this medication for extended period of time with good results one tablet every 6 hours as needed, which she obtains from her primary physician and I feel that this is reasonably appropriate for her considering her diagnoses and pain level and she functions very well with the medication without significant side effects and has for an extended period of time and had had appropriate K-TRACS reporting as well as appropriate diagnostic urinalysis in the past. We explained to her that policy of the pain clinic is interventional pain management only and no narcotic prescriptions would be taken over or dispensed and she will follow up with her primary care regarding this as ____ and prescribed through that office for extended period of time and will continue to be refilled there as well. MAYITO PEREZ MD DR: SHEEBA/yg JOB#: [id number] / [id number] Augusto Ferro MD
== END ==
LOC: PNCL 09:36
PROVIDERS: ATTEND Anesthesiology
DX: M47.26 Other spondylosis with radiculopathy, lumbar region (principal); M54.5 Low back pain
CPT/HCPCS: 62323; J1030; J1040; Q9965

== ENCOUNTER → 2019-06-21 | Outpatient (CLI) | payer MEDICAID ==
[2019-02-08 11:21] VITALS: BP 160/78
[~2019-06-21] MED LIST changes: -IOHEXOL 180 MG/ML 10 ML VIAL. ONE; -methylPREDNISolone ACETATE 40 MG/ML VIAL. ONE; -methylPREDNISolone ACETATE 80 MG/ML VIAL. ONE
--- NOTE | 2019-06-21 10:18 | PAIN ---
DATE OF SERVICE: 06/21/2019 PROGRESS NOTE FOR PAIN CLINIC DIAGNOSES: 1. Lumbar radiculopathy with lumbar spondylosis. 2. Myofascial pain. 3. Bilateral knee joint pain with osteoarthritis. HISTORY OF PRESENT ILLNESS: The patient is a 44-year-old female who returns for followup status post lumbar epidural steroid injection x 2. The patient reports about 95% better in the low back and bilateral lower extremities. The patient reports still some back pain, but very well controlled. She has increased her activity with greater ease and comfort, doing work activities, household activities, traveling with greater ease. The patient reports the pain is a 2 on a scale of 10 at its worst over the past week, 1 on average, 1 at its least and is a 1 today. The patient reports it is aching and sharp at times, but worse with walking, standing; better with sitting and lying down, does not awaken her from sleep at night. The patient reports her main complaint today is bilateral knee joint pain, left greater than right with walking, standing, changing positions. The patient has been seen orthopedist who is doing 6-month Synvisc injections, which helped significantly. The patient reports she is overdue for this, but still significant pain mostly with the left knee, but bilaterally with standing, walking and weightbearing, especially putting all of her weight on one leg such as climbing a stair or a step. The patient reports no new motor or sensory deficits, no new bowel or bladder incontinence. PHYSICAL EXAMINATION: VITAL SIGNS: The patient's blood pressure 171/107, pulse 63, respirations 18, temperature 97.3 degrees Fahrenheit, height is 6 feet, weight is 282 pounds. GENERAL: The patient is awake, alert, oriented, appropriate, very pleasant demeanor. HEENT: Shows normocephalic, atraumatic. Extraocular movements are intact and symmetrical. Oral cavity: Mucous membranes moist and pink. Dentition is intact. NECK: Shows anterior throat supple without palpable lymphadenopathy noted. Swallow reflex symmetrical. CHEST: Shows normal on inspection. Breath sounds are clear to auscultation bilaterally. HEART: Shows S1, S2 clear. No murmurs auscultated. ABDOMEN: Soft, nontender, nondistended. No palpable organomegaly is noted. No rebound or guarding demonstrated. BACK: Shows spine grossly in the midline. Slight exaggeration of thoracic kyphosis, minor flattening of lumbar lordotic curvature. Lumbar paraspinous muscle shows symmetrical on inspection, with only very mild tenderness with palpation in the middle and lower distribution of paraspinous muscles. The patient shows good rotational motion of lumbar spine, both laterally as well as extension and flexion without significant difficulty. EXTREMITIES: Lower extremities show deep tendon reflexes at 1+ in the patellar and tendo calcaneus tendons. Motor exam is strong with 4 on a scale of 5, but equal and symmetrical dorsiflexion, extension, quadriceps and hamstring flexion. Peripheral pulses are 1+ posterior tibia. No peripheral edema is noted. PLAN: Options were discussed with the patient. The patient's old chart was reviewed as her current medication regimen updated. Current review of systems updated today as well. We will hold on any further injections at this time as she is doing quite a bit better. We did discuss possibility of repeat Synvisc injection for the bilateral knees and she is due for this and reports she is having trouble with scheduling getting into her orthopedic surgeon. The patient will consider this and may follow up with knee joint Synvisc injections in the future. The patient will check with her orthopedic surgeon to get her in for this. If not, we may do this for her here. She has had significant benefit with documented osteoarthritis of the bilateral knee joints. MAYITO PEREZ MD DR: SHEEBA/yg JOB#: [id number] / [id number]
== END | disposition home or self-care (01) ==
LOC: PNCL 08:28
PROVIDERS: ATTEND Anesthesiology
DX: M47.26 Other spondylosis with radiculopathy, lumbar region (principal); M17.0 Bilateral primary osteoarthritis of knee; M79.18 Myalgia, other site
CPT/HCPCS: G0463

== ENCOUNTER → 2019-06-28 | Outpatient (CLI) | payer MEDICAID ==
[2019-02-08 11:21] VITALS: BP 160/78
[~2019-06-28] MED LIST changes: +HYLAN G-F 20 48 MG/6 ML SYRINGE INT ART ONE; +IOHEXOL 180 MG/ML 10 ML VIAL. ONE
--- NOTE | 2019-06-28 10:58 | PAIN ---
DATE OF SERVICE: 06/28/2019 PROGRESS NOTE FOR PAIN CLINIC DIAGNOSES: 1. Lumbar radiculopathy with lumbar spondylosis. 2. Myofascial pain. 3. Bilateral knee joint pain with primary osteoarthritis. HISTORY OF PRESENT ILLNESS: The patient is a 44-year-old female who returns for followup status post lumbar epidural steroid injections as well as facet joint injections. The patient had significant pain in her knees and has done well with Synvisc injections in the past. We discussed this on her last visit. She has been preauthorized for bilateral knee joint injections today with Synvisc, still significant pain with walking, standing, climbing stairs, especially putting all her weight on one leg or the other, but fairly equal pain more or usually on the left side, but the right side is also very painful in the knees. The patient reports the pain is a 3 on a scale of 10 at its worst over the past week, 2 on average, 2 at its least and is a 2 today. The patient reports it is aching, dull, tight in the knees itself, also some pain in the low back on the right side. The patient reports it is worse with activity, better with sitting or lying down, does not generally awaken her from sleep at night. After her last injection, she was doing quite well with distance walking increase, doing household activities with greater ease and comfort. PHYSICAL EXAMINATION: VITAL SIGNS: The patient's blood pressure 156/104, pulse 67, respirations 16, temperature 98.3 degrees Fahrenheit, height 6 feet, weight is 280 pounds. GENERAL: The patient is awake, alert, oriented, appropriate, very pleasant demeanor. HEENT: Shows normocephalic, atraumatic. Extraocular movements are intact and symmetrical. Oral cavity: Mucous pink. Dentition is intact. NECK: Shows anterior throat supple. CHEST: Shows normal on inspection. Breath sounds clear to auscultation bilaterally. HEART: Shows S1, S2 clear. ABDOMEN: Obese and soft, nontender, nondistended. BACK: Shows spine grossly in the midline. Moderate tenderness in the low lumbar distribution on the right side compared to the left, but without any atrophy or hypertrophy, without asymmetry. No trigger points, no radiation of pain demonstrated. The patient has good rotational motion of lumbar spine with some mild tenderness with extension, but not forward flexion, right and left lateral rotation. EXTREMITIES: Lower extremities show deep tendon reflexes 1+ in the patellar and tendo calcaneus tendons are equal. Motor exam is approximately 4 on a scale of 5, but equal and symmetrical bilaterally. The patient's knee shows good hinge motion without crepitus or ratcheting. PLAN: Options were discussed with the patient. The patient's old chart was reviewed as her current medication regimen updated. Current review of systems updated today as well. We will proceed with bilateral Synvisc injections at the bilateral knee joints under fluoroscopic guidance. Risks were again discussed including, but not limited to bleeding, infection, possibility of intravascular injection sequelae, spread of local anesthetic and numbness as well as spread of Synvisc and poor results regarding pain control. The patient understands and wished to proceed. The patient will return to clinic in approximately 2 weeks for followup. She was counseled on return appointment, activity level and side effects to be aware of. DIAGNOSIS: Primary osteoarthritis, bilateral knee joints. PROCEDURE: Bilateral knee joint Synvisc injections under sterile prep and drape using local anesthetic and C-arm fluoroscopic guidance. MEDICATIONS INJECTED: A total of 6 mL per knee of Synvisc-One. Also a total of 3 mL, 1.5 mL each knee of contrast. CONDITION AT DISCHARGE: Stable. The patient tolerated procedure well, had no complications. MAYITO PEREZ MD DR: SHEEBA/yg JOB#: [id number] / [id number]
== END ==
LOC: PNCL 08:13
PROVIDERS: ATTEND Anesthesiology
DX: M17.0 Bilateral primary osteoarthritis of knee (principal); M47.26 Other spondylosis with radiculopathy, lumbar region; M79.18 Myalgia, other site
CPT/HCPCS: 20610; 77002; Q9965

== ENCOUNTER → 2019-08-09 | Outpatient (CLI) | payer MEDICARE, MEDICAID ==
[2019-02-08 11:21] VITALS: BP 160/78
[~2019-08-09] MED LIST changes: +BUPIVACAINE MPF 0.25% 10 ML VIAL. ONE; -HYLAN G-F 20 48 MG/6 ML SYRINGE INT ART ONE; -IOHEXOL 180 MG/ML 10 ML VIAL. ONE; +methylPREDNISolone ACETATE 40 MG/ML VIAL. ONE
--- NOTE | 2019-08-09 12:21 | PAIN ---
DATE OF SERVICE: 08/09/2019 PROGRESS NOTE FOR PAIN CLINIC DIAGNOSES: 1. Lumbar radiculopathy with lumbar spondylosis. 2. Myofascial pain. 3. Bilateral knee joint pain with osteoarthritis. HISTORY OF PRESENT ILLNESS: The patient is a 44-year-old female who returns for followup status post lumbar epidural steroid injections as well as previous trigger point injections and facet injections. The patient reports after her knee injections, she was doing quite a bit better with the knees about 90% for the first month. Her main complaint is low back pain. She had some of that pain on her last visit. We discussed this in June, but she is reporting the pain is sporadic in the low back with spasticity, tightness in the back with activity, walking, standing, changing positions. The patient reports it is a 5 on a scale of 10 at its worst in the past week, 3 on average, 2 at its least and is a 3 today. The patient reports it is aching, dull, tight across the low back and into the musculature causing some spasticity and very sharp grabbing pain, especially in the right hip and gluteus. The patient reports no new motor or sensory deficits, no new bowel or bladder incontinence. Originally, she was doing quite a bit about her knees, much better with sitting or lying down, does not awaken her from sleep at night with the back as well. PHYSICAL EXAMINATION: VITAL SIGNS: The patient's blood pressure 172/119, pulse 83, respirations 18, temperature 98.2 degrees Fahrenheit, height is 6 feet, weight is 281 pounds. GENERAL: The patient is awake, alert, oriented, appropriate, very pleasant demeanor. HEENT: Shows normocephalic, atraumatic. Extraocular movements are intact and symmetrical. Oral cavity: Mucous membranes moist and pink. Dentition is intact. NECK: Shows anterior throat supple without palpable lymphadenopathy noted. Swallow reflex symmetrical. CHEST: Shows normal on inspection. Breath sounds are clear bilaterally. HEART: Shows S1, S2 clear. ABDOMEN: Obese, soft, nontender, nondistended. BACK: Shows spine grossly in the midline. Slight exaggeration of thoracic kyphosis, some minor flattening of lumbar lordotic curvature. Lumbar paraspinous muscle shows symmetrical on inspection, with palpation shows some significant tenderness especially on the right in the middle and lower distribution of paraspinous muscles, very firm rope-like musculature in the paraspinous musculature as well as in the gluteus musculature bilaterally, again worse on the right side with very significant tenderness without specific radiation over the superior medial gluteus as well as the inferior lumbar paraspinous musculature bilaterally. The patient has good rotational motion of lumbar spine, both laterally as well as extension and forward flexion without significant increase in pain. EXTREMITIES: Lower extremities show deep tendon reflexes 1+ in the patellar and tendo calcaneus tendons. Motor exam is strong with approximately 4 on a scale of 5, but equal and symmetrical dorsiflexion, extension, quadriceps and hamstring flexion bilaterally. Peripheral pulses are 1+. No peripheral edema is noted. Options were discussed with the patient. The patient's old chart was reviewed as her current medication regimen updated. Current review of systems updated today as well. We will proceed with trigger point injections of the bilateral lumbar paraspinous musculature, bilateral gluteus musculature. Risks were discussed including but not limited to bleeding, infection, possibility of intravascular injection sequelae, spread of local anesthetic and numbness, side effects of steroid medication and poor results regarding pain control. The patient understands and wished to proceed. The patient will return to clinic in approximately 2 weeks for followup. She was counseled as to return appointment, activity level and side effects to be aware of. DIAGNOSIS: Myofascial pain. PROCEDURE: Trigger point injections, bilateral lumbar paraspinous musculature, bilateral gluteus musculature under sterile prep and drape using local anesthetic. MEDICATION INJECTED: Total of 8 mL of 0.25% bupivacaine and 40 mg total of Depo-Medrol with negative aspiration at each injection site. CONDITION AT DISCHARGE: Stable. The patient tolerated the procedure well, had no complications. MAYITO PEREZ MD DR: SHEEBA/yg JOB#: [id number] / [id number]
== END ==
LOC: PNCL 09:42
PROVIDERS: ATTEND Anesthesiology
DX: M79.18 Myalgia, other site (principal); M54.16 Radiculopathy, lumbar region; M47.816 Spondylosis without myelopathy or radiculopathy, lumbar region; M17.0 Bilateral primary osteoarthritis of knee
CPT/HCPCS: 20553; J1030; J3490

== ENCOUNTER → 2019-09-27 | Outpatient (CLI) | payer OTHER, MEDICAID ==
[2019-02-08 11:21] VITALS: BP 160/78
[~2019-09-27] MED LIST changes: +ONDA4TAB7 PO
--- NOTE | 2019-09-27 10:05 | PAIN ---
DATE OF SERVICE: 09/27/2019 PROGRESS NOTE FOR PAIN CLINIC DIAGNOSES: 1. Lumbar radiculopathy with lumbar spondylosis and lumbosacral spondylosis. 2. Myofascial pain. 3. Bilateral knee joint pain with osteoarthritis. HISTORY OF PRESENT ILLNESS: The patient is a 44-year-old female who returns for followup status post trigger point injections on 08/09/2019. The patient did very well with about a 100% improvement for about 5 weeks. The pain is returning now on the right side in the low back, but the left side is doing much better, still with some moderate pain on the left, but much more significant on the right side. The patient reports it is worse with standing, walking, changing positions, especially twisting and extension of the lumbar spine with axial loading in the low back. The patient reports the pain is better with forward flexion, has been awaken her from sleep occasionally, but not most nights. The patient reports it is a 5 on a scale of 10 at its worst over the past week, 3 on average, 3 at its least and is a 3 a day. The patient reports it is aching, dull and tight, becoming more constant with activity, standing, walking. The pain returned about 6 days ago. Other than that, she was doing quite a bit better after the last injection. The patient has some increased pain, however, on the right side with rotation to the right as well as extension is noted. PHYSICAL EXAMINATION: VITAL SIGNS: The patient's blood pressure 142/94, pulse 62, respirations 16, temperature 97.5 degrees Fahrenheit, height is 6 feet, weight is 269 pounds. GENERAL: The patient is awake, alert, oriented, appropriate, very pleasant demeanor. HEENT: Shows normocephalic, atraumatic. Extraocular movements are intact and symmetrical. Oral cavity: Mucous membranes moist and pink. Dentition is intact. NECK: Shows anterior throat supple without palpable lymphadenopathy noted. Swallow reflex symmetrical. CHEST: Shows normal on inspection. Breath sounds are clear bilaterally. HEART: Shows S1, S2 clear. No murmurs auscultated. ABDOMEN: Soft, nontender, nondistended. No palpable organomegaly is noted. There is no rebound or guarding demonstrated. BACK: Shows spine grossly in the midline. Normal appearing thoracic kyphosis, some minor flattening of lumbar lordotic curvature. Lumbar paraspinous muscle shows symmetrical on inspection, with palpation shows some moderate tenderness diffusely bilaterally going diffusely without radiation. PLAN: Options were discussed with the patient. The patient's old chart was reviewed as her current medication regimen updated. Current review of systems updated today as well and we will proceed with trigger point injections of the bilateral lumbar paraspinous musculature as well as the gluteus musculature. Risks were discussed including but not limited to bleeding, infection, possibility of intravascular injection sequelae, spread of local anesthetic and numbness, side effects of steroid medication as well as poor results regarding pain control. The patient understands and wished to proceed. The patient will return to clinic in approximately 2 weeks for followup. She was counseled on return appointment, activity level and side effects to be aware of. The patient did have significant pain with extension of the lumbar spine consistent with a right-sided facet syndrome and we will preauthorize the patient for right-sided intraarticular facet joint injections as she has done very well with these in the past, most recently 04/2017 with approximately 90% improvement for about 6 weeks following the injections. The patient would like to pursue this again as she does have some facet right-sided syndrome findings. We will wait for preauthorization and plan on right-sided L4-L5 and L5-S1 facet joint injections on the patient's return. DIAGNOSES: 1. Lumbar and lumbosacral spondylosis. 2. Myofascial pain. PROCEDURE: Trigger point injections, right and left lumbar paraspinous musculature, right and left gluteus musculature under sterile prep and drape using local anesthetic. MEDICATION INJECTED: A total of 40 mg of Depo-Medrol and 7 mL of 0.25% bupivacaine after negative aspiration at each injection site. CONDITION AT DISCHARGE: Stable. The patient tolerated the procedure well, had no complications. MAYITO PEREZ MD DR: SHEEBA/yg JOB#: [id number] / [id number]
== END | disposition home or self-care (01) ==
LOC: PNCL 08:29
PROVIDERS: ATTEND Anesthesiology
DX: M47.26 Other spondylosis with radiculopathy, lumbar region (principal); M17.0 Bilateral primary osteoarthritis of knee; M79.18 Myalgia, other site; Z98.890 Other specified postprocedural states; Z88.0 Allergy status to penicillin; Z88.1 Allergy status to other antibiotic agents; Z88.8 Allergy status to other drugs, medicaments and biological substances
CPT/HCPCS: 20552; J1030; J3490

== ENCOUNTER → 2019-10-11 | Outpatient (CLI) | payer OTHER, MEDICAID ==
[2019-02-08 11:21] VITALS: BP 160/78
[~2019-10-11] MED LIST changes: +IOHEXOL 180 MG/ML 10 ML VIAL. ONE; -methylPREDNISolone ACETATE 40 MG/ML VIAL. ONE; +methylPREDNISolone ACETATE 80 MG/ML VIAL. ONE
--- NOTE | 2019-10-11 10:40 | PAIN ---
DATE OF SERVICE: 10/11/2019 PROGRESS NOTE FOR PAIN CLINIC DIAGNOSIS: Lumbar radiculopathy with lumbar spondylosis and lumbosacral spondylosis. HISTORY OF PRESENT ILLNESS: The patient is a 44-year-old female who returns for followup status post trigger point injection on last visit. The patient reports doing significantly better with 60-70% improvement in the right hip. There is still significant pain with standing, walking, and changing positions, especially extension of the lumbar spine on the right side only. The patient reports it is a 2 on a scale of 10 now; however, at its worst, least, and on average and is a 2 today. The patient reports it is aching, dull, and tight in the right posterior low back. The patient reports no new motor or sensory deficits. It awakens her from sleep for about every 3-5 hours. The patient reports no new bowel or bladder incontinence or other complaints. PHYSICAL EXAMINATION: VITAL SIGNS: The patient's blood pressure is 122/87, pulse 69, respirations 16, temperature 97.6 degrees Fahrenheit, and weight is 262 pounds. GENERAL: The patient is awake, alert, oriented, and appropriate with very pleasant demeanor. HEENT: Head is normocephalic and atraumatic. Extraocular movements are intact and symmetrical. Oral cavity: Mucous membranes are moist and pink. Dentition is intact. NECK: Anterior throat supple without palpable lymphadenopathy noted. Swallow reflex symmetrical. CHEST: Normal on inspection. Breath sounds are clear to auscultation bilaterally. HEART: S1, S2 clear. No murmurs auscultated. ABDOMEN: Soft, nontender, and nondistended. SPINE: Back shows spine grossly in the midline. Normal appearing thoracic kyphosis and minor flattening of lumbar lordotic curvature. Lumbar paraspinous muscle shows symmetrical on inspection and with palpation shows some moderate tenderness diffusely bilaterally, but worse on the right side with direct palpation. The patient has good rotational motion with moderate tenderness with right lateral rotation and significant tenderness with extension of the lumbar spine at greater than 10 degrees on the right side only. EXTREMITIES: The patient's lower extremities show deep tendon reflexes 1+ in the patellar and tendo calcaneus tendons. Motor exam is approximately 4 on a scale of 5, but equal and symmetrical dorsiflexion, extension, quadriceps, and hamstring flexion. Peripheral pulses are 1+. No peripheral edema is noted bilaterally. Options were discussed with the patient. The patient's old chart was reviewed as her current medication regimen updated. Current review of systems updated today as well, and we will proceed with right-sided L4-L5 and L5-S1 facet joint injections today with fluoroscopic guidance. Risks were again discussed including but not limited to bleeding, infection, possibility of epidural hematoma, subsequent neurological compromise, dural puncture, headaches, spinal cord and/or nerve damage, side effects of steroid medication, and poor results regarding pain control. The patient understands and wished to proceed. The patient will return to clinic in approximately 2 weeks to follow up. She was counseled as to return appointment, activity level, and side effects to be aware of. DIAGNOSIS: Lumbar and lumbosacral spondylosis. PROCEDURE: Right-sided L4-L5 and L5-S1 facet joint injections using C-arm fluoroscopic guidance under sterile prep and drape using local anesthetic. MEDICATIONS INJECTED: A total of 80 mg Depo-Medrol and 2 mL of 0.25% bupivacaine and 1 mL total of contrast. CONDITION AT DISCHARGE: Stable. The patient tolerated the procedure well and had no complications. MAYITO PEREZ MD DR: SHEEBA/yg JOB#: [id number] / [id number]
== END | disposition home or self-care (01) ==
LOC: PNCL 09:07
PROVIDERS: ATTEND Anesthesiology
DX: M54.16 Radiculopathy, lumbar region (principal); Z98.890 Other specified postprocedural states; Z88.0 Allergy status to penicillin; Z88.1 Allergy status to other antibiotic agents; Z88.8 Allergy status to other drugs, medicaments and biological substances
CPT/HCPCS: 64493; 64494; J1040; J3490; Q9965

== ENCOUNTER → 2019-12-10 | Outpatient (CLI) | payer OTHER, MEDICAID ==
[2019-02-08 11:21] VITALS: BP 160/78
[~2019-12-10] MED LIST changes: -IOHEXOL 180 MG/ML 10 ML VIAL. ONE; +methylPREDNISolone ACETATE 40 MG/ML VIAL. ONE; -methylPREDNISolone ACETATE 80 MG/ML VIAL. ONE
--- NOTE | 2019-12-10 11:10 | PAIN ---
DATE OF SERVICE: 12/10/2019 PROGRESS NOTE FOR PAIN CLINIC DIAGNOSES: 1. Lumbar radiculopathy with lumbar spondylosis. 2. Myofascial pain. 3. Bilateral knee joint pain with osteoarthritis. HISTORY OF PRESENT ILLNESS: The patient is a 44-year-old female who returns for followup status post trigger point injections as well as epidural steroid injections and most recently right-sided facet joint injection. The patient reports about 100% improvement on the right side after the facet joint injection, which was on 10/11/2019. The patient reports her main complaint now is tightness and spasticity in the low back and the hips, more on the right than the left, but present bilaterally. The patient reports that she did very well after trigger point injections, which we had performed back in 09/2019. The patient reports the pain has began to be more spastic, is more tight feeling, aching and dull, shooting, sharp, stabbing in the low back, more on the right than the left, but without increased pain with excessive rotation of motion or extension of the lumbar spine, is doing much better. The patient reports it is a 5 on a scale of 10 at its worst over the past week, 3 on average, 2 at its least and is a 3 today. The patient reports no new motor or sensory deficits, no new bowel or bladder incontinence. 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 The patient reports no other changes. PHYSICAL EXAMINATION: VITAL SIGNS: The patient's blood pressure is 150/110, pulse 61, respirations 18, temperature 98.2 degrees Fahrenheit, height is 5 feet 10 inches, weight is 261 pounds. GENERAL: The patient is awake, alert, oriented, appropriate, very pleasant demeanor. HEENT: Head shows normocephalic, atraumatic. The patient wears eyeglasses. Extraocular movements are intact and symmetrical. Oral cavity: Mucous membranes moist and pink. Dentition is intact. NECK: Shows anterior throat supple without palpable lymphadenopathy noted. Swallow reflex symmetrical. CHEST: Shows normal on inspection. Breath sounds clear to auscultation bilaterally. HEART: Shows S1, S2 clear. No murmurs auscultated. ABDOMEN: Soft, nontender, nondistended. BACK: Shows spine grossly in the midline, normal-appearing cervical lordotic curvature, thoracic kyphotic curvature and some minor flattening of lumbar lordotic curvature. Lumbar paraspinous muscle shows symmetrical on inspection, on palpation shows some very firm rope-like musculature in the bilateral lumbar middle and lower paraspinous musculature, very firm rope-like tenderness without specific radiation, but very firm muscles consistent with trigger point areas of musculature. This is true into the superior and lateral gluteus on the right and the left, much more tender on the right side than the left side. The patient does show good rotational motion of lumbar spine, both laterally greater than 10 degrees right and left as well as full extension, full forward flexion without significant increase in pain. EXTREMITIES: The patient's lower extremities show deep tendon reflexes at 1+ in the patella and tendo calcaneus tendons. Motor exam is approximately 4 on a scale of 5, but equal and symmetrical dorsiflexion, extension, quadriceps and hamstring flexion. Peripheral pulses are 1+ posterior tibia. No peripheral edema is noted bilaterally. Options were discussed with the patient. The patient's old chart was reviewed as her current medication regimen updated. Current review of systems updated today as well and we will proceed with the trigger point injections of the bilateral lumbar paraspinous musculature as well as bilateral gluteus musculature under sterile prep and drape. Risks were discussed including but not limited to bleeding, infection, possibility of intravascular injection sequelae, spread of local anesthetic and numbness, side effects of steroid medication and poor results regarding pain control. The patient understands and wished to proceed. The patient will return to the clinic in approximately 2 weeks for followup. She was counseled on return appointment, activity level and side effects to be aware of. DIAGNOSIS: Myofascial pain. PROCEDURE: Bilateral trigger point injections of the bilateral lumbar paraspinous musculature and bilateral gluteus musculature under sterile prep and drape using local anesthetic. MEDICATIONS INJECTED: A total of 40 mg Depo-Medrol plus total of 9 mL of 0.25% bupivacaine after negative aspiration at each injection site. CONDITION AT DISCHARGE: Stable. The patient tolerated the procedure well, had no complications. MAYITO PEREZ MD DR: SHEEBA/yg JOB#: [id number] / [id number]
== END ==
LOC: PNCL 09:10
PROVIDERS: ATTEND Anesthesiology
DX: M79.18 Myalgia, other site (principal); M47.26 Other spondylosis with radiculopathy, lumbar region; M17.0 Bilateral primary osteoarthritis of knee
CPT/HCPCS: 20553; J1030; J3490

== ENCOUNTER → 2019-12-17 | Outpatient (CLI) | payer OTHER, MEDICAID ==
[2019-02-08 11:21] VITALS: BP 160/78
[~2019-12-17] MED LIST changes: -BUPIVACAINE MPF 0.25% 10 ML VIAL. ONE; +HYLAN G-F 20 48 MG/6 ML SYRINGE INT ART ONE; +IOHEXOL 180 MG/ML 10 ML VIAL. ONE; -methylPREDNISolone ACETATE 40 MG/ML VIAL. ONE
--- NOTE | 2019-12-17 12:13 | PAIN ---
DATE OF SERVICE: 12/17/2019 PROGRESS NOTE FOR PAIN CLINIC DIAGNOSES: 1. Bilateral knee joint pain with primary osteoarthritis. 2. Lumbar radiculopathy with lumbar and lumbosacral spondylosis. HISTORY OF PRESENT ILLNESS: The patient is a 44-year-old female, who returns for followup status post trigger point injection on her last visit. The patient reports she is doing quite a bit better, about 90% improved; this was in the mid and low back. The patient reports her main complaint is her knees, which are very painful than her last visit because it is getting much worse, especially on the left side. The patient has responded well to intra-articular steroid injection as well as Synvisc injections in the past. We discussed possible Synvisc injection on the left knee coming up. The patient reports that the knee has been getting much worse with walking, standing, changing positions, bending, especially putting all her weight on her left leg, especially with stepping up on a curb or stairs. The patient rates her pain as a 5 on a scale of 10 at its worst in the past week, 3 on an average, 2 at its least and is a 3 today. The patient reports it is aching, sharp, dull, shooting, tight, on and off in intensity with activity, better with sitting or lying down. The patient reports it does not awaken her from sleep generally. Her low back is doing much better; however, she has been increasing her activities at home, walking greater distances, doing household activities with greater ease and comfort as well. The patient reports no new motor or sensory deficits, no new bowel or bladder incontinence or other complaints. PHYSICAL EXAMINATION: VITAL SIGNS: The patient's blood pressure is 190/128, pulse 61, respirations 16, temperature 98.1 degrees Fahrenheit, height is 6 feet and weight is 255 pounds. GENERAL: The patient is awake, alert, oriented, appropriate, very pleasant demeanor. HEENT: Head shows normocephalic, atraumatic. Extraocular movements are intact and symmetrical. Oral cavity: Mucous membranes moist and pink. NECK: Shows anterior throat supple without palpable lymphadenopathy noted. CHEST: Shows normal on inspection. Breath sounds are clear bilaterally. HEART: Shows S1, S2 clear. No murmurs auscultated. ABDOMEN: Soft, obese, nontender, nondistended. BACK: Shows spine grossly in the midline, normal-appearing cervical lordotic curvature, slight increase in thoracic kyphotic curvature, minor flattening of lumbar lordotic curvature. Lumbar paraspinous muscle shows symmetrical on inspection with mildly tender and firm musculature in the middle and lower lumbar distribution without specific trigger points on inspection today without significant radiation. The patient has good rotational motion of lumbar spine both laterally as well as extension and flexion without significant difficulty. EXTREMITIES: The patient's lower extremities show deep tendon reflexes are 1+ in the patellar and tendo-calcaneus tendons. Motor exam is approximately 4 on a scale of 5, but equal with dorsiflexion, extension, quadriceps and hamstring flexion. The patient does have some difficulty with standing with all of her weight on her left leg with significant pain in the medial compartment of the knee. The knee itself shows good range of motion both actively and passively with good mobility of the patella without significant pain reported. Negative shelf sign. No medial or lateral displacement of the collateral ligament. Mild tenderness over the medial collateral aspect of the knee, but not laterally. Options were discussed with the patient. The patient's old chart was reviewed as her current medication regimen updated. Current review of systems updated today as well. We will proceed with a left intra-articular knee joint injection with Synvisc. Risks were again discussed including, but not limited to bleeding, infection, possibility of intravascular injection sequelae, spread of Synvisc injection as well as local anesthetic and numbness, side effects of Synvisc administration as well as extravasation of the chemical and exposure of fluoroscopy. The patient understands and wishes to proceed. The patient will return to clinic in approximately 2 weeks for followup. She was counseled as to return appointment, activity level and side effects to be aware of. DIAGNOSIS: Bilateral knee joint pain with primary osteoarthritis, bilateral knee joints. PROCEDURE: Left intra-articular knee joint Synvisc-One injection with fluoroscopic guidance under sterile prep and drape using local anesthetic. MEDICATION INJECTED: A total of 6 mL of Synvisc-One after aspiration of 4 mL of synovial fluid. CONDITION AT DISCHARGE: Stable. The patient tolerated the procedure well, had no complications. MAYITO PEREZ MD DR: SHEEBA/yg JOB#: [id number] / [id number]
== END ==
LOC: PNCL 09:01
PROVIDERS: ATTEND Anesthesiology
DX: M17.0 Bilateral primary osteoarthritis of knee (principal); M47.26 Other spondylosis with radiculopathy, lumbar region
CPT/HCPCS: 20610; 77002; J7325; Q9965

== ENCOUNTER → 2020-02-20 | Outpatient (CLI) | payer OTHER, MEDICAID ==
[2019-02-08 11:21] VITALS: BP 160/78
[~2020-02-20] MED LIST changes: +BUPIVACAINE MPF 0.25% 10 ML VIAL. ONE; -HYLAN G-F 20 48 MG/6 ML SYRINGE INT ART ONE; -IOHEXOL 180 MG/ML 10 ML VIAL. ONE; +methylPREDNISolone ACETATE 40 MG/ML VIAL. ONE
--- NOTE | 2020-02-20 10:29 | PAIN ---
DATE OF SERVICE: 02/20/2020 PROGRESS NOTE FOR PAIN CLINIC DIAGNOSES: 1. Lumbar radiculopathy with lumbar and lumbosacral spondylosis. 2. Myofascial pain. 3. Bilateral knee joint pain with osteoarthritis. HISTORY OF PRESENT ILLNESS: The patient is a 45-year-old female, who returns for followup status post left knee joint injection with Synvisc-One. The patient did very well, reports about 90% improvement with the left knee. Her right knee, however, is significantly painful with walking, standing, changing positions, putting all of her weight on her right leg. The patient reports it is becoming more noticeable and she has been favoring the right leg by putting more weight on the left side, which is beginning to hurt again in the hip and back. The patient reports her back is her chief complaint today, however. It is more in the upper mid back as well as the low back and in the gluteus, especially more on the right side. The patient reports no new motor or sensory deficits, worse with walking, standing, changing positions, significant spasticity and tightness in the low back, mid back and even in the mid upper back between the shoulder blades. The patient reports it does not awaken her from sleep at night generally, she is better with sitting or lying down. The patient reports the pain is a 5 on a scale of 10 at its worst in the past week, 3 on an average, 2 at its least and is a 3 today. The patient reports it is aching and dull, shooting at times in the mid upper back, but mostly in the low back and gluteus bilaterally. The patient reports no new motor or sensory deficits, no new bowel or bladder incontinence. PHYSICAL EXAMINATION: VITAL SIGNS: The patient's blood pressure is 136/93, pulse 63, respirations 18, temperature 98.5 degrees Fahrenheit, height 6 feet, weight is 263 pounds. GENERAL: The patient is awake, alert, oriented, appropriate, very pleasant demeanor. HEENT: Shows normocephalic, atraumatic. Extraocular movements are intact and symmetrical. Oral cavity: Mucous membranes are moist and pink; dentition is intact. NECK: Shows anterior throat supple without palpable lymphadenopathy noted. Neck shows full rotational motion of the cervical spine, both laterally as well as extension and flexion without significant pain reported. CHEST: Shows normal on inspection. Breath sounds are clear without rales, rhonchi or wheezes auscultated. HEART: Shows S1, S2 clear. No murmurs auscultated. ABDOMEN: Obese, soft, nontender and nondistended. Well-healed surgical scarring appreciated. BACK: Shows spine grossly in the midline, normal-appearing thoracic kyphosis and minor flattening of lumbar lordotic curvature with palpation of the paraspinous musculature significantly tender, very firm rope-like musculature in the lower thoracic distribution, also in the lumbar paraspinous musculature bilaterally as well as the gluteus musculature, more on the right than the left, throughout the thoracic, lumbar and gluteus areas with very firm rope-like musculature consistent with trigger point areas of the muscles in all these regions bilaterally, but again, worse on the right side than the left, but without specific radiation. The patient does show good rotational motion of the lumbar spine with some moderate tenderness with right lateral rotation, but better with extension and no pain exacerbated with forward flexion except for between the shoulder blades with forward flexion at 45 degrees. EXTREMITIES: The patient's lower extremities show deep tendon reflexes are 1+ in the patellar and tendo-calcaneus tendons are equal. Motor exam is approximately 4 on a scale of 5, but symmetrical dorsiflexion, extension, quadriceps and hamstring flexion. The patient's knee shows good range of motion without crepitus or ratcheting, moderate tenderness in the medial collateral ligament on the right, only with deeper palpation, but without radiation. Peripheral pulses are 1+ posterior tibial. No peripheral edema bilaterally. Options were discussed with the patient. The patient's old chart was reviewed as her current medication regimen updated. Current review of systems updated today as well. We will proceed with trigger point injections of the bilateral thoracic paraspinous musculature, bilateral lumbar paraspinous musculature and bilateral gluteus musculature. Risks were discussed including but not limited to bleeding, infection, possibility of intravascular injection sequelae, pneumothorax, side effects of steroid medication, spread of local anesthetic and numbness as well as poor results regarding pain control. The patient understands and wished to proceed. The patient will return to clinic in approximately 1 week for followup. She was counseled as to the return appointment, activity level and side effects to be aware of. We did discuss potential Synvisc injection on the right knee on her return as she did very well with the left knee and has similar symptoms with documented osteoarthritis of the bilateral knees. We will have her return in approximately 1 week and plan on Synvisc injection in the right knee at that time. DIAGNOSIS: Myofascial pain. PROCEDURE: Trigger point injections, bilateral thoracic paraspinous musculature, bilateral lumbar paraspinous musculature, bilateral gluteus musculature, under sterile prep and drape and using local anesthetic. MEDICATIONS INJECTED: A total of 10 mL of 0.25% bupivacaine after negative aspiration at each injection site and a total of 40 mg of Depo-Medrol. CONDITION AT DISCHARGE: Stable. The patient tolerated the procedure well, had no complications. MAYITO PEREZ MD DR: SHEEBA/nts JOB#: [id number] / [id number]
== END ==
LOC: PNCL 08:39
PROVIDERS: ATTEND Anesthesiology
DX: M79.18 Myalgia, other site (principal); M51.16 Intervertebral disc disorders with radiculopathy, lumbar region
CPT/HCPCS: 20553; J1030; J3490

== ENCOUNTER → 2020-02-27 | Outpatient (CLI) | payer OTHER, MEDICAID ==
[2019-02-08 11:21] VITALS: BP 160/78
[~2020-02-27] MED LIST changes: -BUPIVACAINE MPF 0.25% 10 ML VIAL. ONE; +HYLAN G-F 20 48 MG/6 ML SYRINGE INT ART ONE; +IOHEXOL 180 MG/ML 10 ML VIAL. ONE; -methylPREDNISolone ACETATE 40 MG/ML VIAL. ONE
--- NOTE | 2020-02-27 10:32 | PAIN ---
DATE OF SERVICE: 02/27/2020 PROGRESS NOTE FOR PAIN CLINIC DIAGNOSES: 1. Lumbar radiculopathy with lumbar and lumbosacral spondylosis. 2. Myofascial pain. 3. Bilateral knee joint pain with primary osteoarthritis. HISTORY OF PRESENT ILLNESS: The patient is a 45-year-old female, who returns for followup status post trigger point injections. She reports she did very well with about 90% improvement in the thoracic paraspinous and lumbar paraspinous musculature as well as the gluteus muscles. Her main complaint today is right knee pain. We discussed this with her last time. She did very well with her left knee injection with Synvisc in the past and we planned on doing a right knee joint injection today. The patient reports the left and is still doing well. Her back is doing better after the injections last time with trigger points. The patient reports the pain in knee is her main complaint, worse with standing, walking, putting weight on it when she is stepping on a stair or a step, putting all of her weight on her right side, sometimes it aches at home as well when she is off of her feet and sitting or lying down. The patient reports it awakens her from sleep occasionally, but not very often. No new motor or sensory deficits, no new changes. The patient is seeing her ekg technician later this afternoon as well as she is having some GI complaints. The patient reports the pain in the knee is aching and dull, also tight at times, it feels swollen. The patient reports it is a 3 on a scale of 10 at its worst over the past week, 2 on an average, 1 at its least and is a 3 today. The patient reports no new motor or sensory deficits, no new changes. PHYSICAL EXAMINATION: VITAL SIGNS: The patient's blood pressure 146/97, pulse 64, respirations 16, temperature 98.3 degrees Fahrenheit, height 6 feet, weight is 250 pounds. GENERAL: The patient is awake, alert, oriented, appropriate, very pleasant demeanor. HEENT: Shows normocephalic, atraumatic. Extraocular movements are intact and symmetrical. Oral cavity: Mucous membranes are moist and pink; dentition is intact. NECK: Shows anterior throat supple without palpable lymphadenopathy noted. Swallow reflex symmetrical. CHEST: Shows normal on inspection. Breath sounds are clear bilaterally. No rales, rhonchi or wheezes auscultated. ABDOMEN: Soft, nontender, nondistended. HEART: Shows S1, S2 clear. BACK: Shows spine grossly in the midline, slightly increased thoracic kyphosis and minor flattening of lumbar lordotic curvature. Lumbar paraspinous musculature shows symmetrical on inspection, with palpation shows some mild tenderness diffusely throughout the upper, middle and lower distribution of paraspinous muscles, but only diffusely without significant radiation. EXTREMITIES: The patient's lower extremities show deep tendon reflexes at 1+ in the patellar and tendo-calcaneus tendons. Motor exam is approximately 4 on a scale of 5, but symmetrical with dorsiflexion, extension, quadriceps and hamstring flexion equal bilaterally. Peripheral pulses are 1+. No peripheral edema is noted. The patient's right knee shows some mild tenderness with palpation in the medial collateral ligament and also posteriorly in the popliteal fossa, but without specific masses. The patient has good posterior popliteal pulses at 2+. Options were discussed with the patient. The patient's old chart was reviewed as her current medication regimen updated. Current review of systems updated today as well. We will proceed with a right knee Synvisc injection today with Synvisc-One. Risks were discussed including but not limited to bleeding, infection, possibility of intravascular injection and sequelae, spread of local anesthetic and numbness, extravasation of Synvisc-One as well as poor results regarding pain control and exposure of fluoroscopy. The patient understands and wished to proceed. The patient will return to the clinic in approximately 2 weeks for followup. She was counseled as to the return appointment, activity level and side effects to be aware of. DIAGNOSIS: Right knee joint pain with primary osteoarthritis, right knee joint. PROCEDURE: Right knee Synvisc-One injection under sterile prep and drape using local anesthetic using C-arm fluoroscopic guidance. MEDICATIONS INJECTED: Synvisc-One 6 mL total and 1.5 mL of contrast. CONDITION AT DISCHARGE: Stable. The patient tolerated the procedure well and had no complications. MAYITO PEREZ MD DR: SHEEBA/yg JOB#: [id number] / [id number]
== END ==
LOC: PNCL 08:23
PROVIDERS: ATTEND Anesthesiology
DX: M47.817 Spondylosis without myelopathy or radiculopathy, lumbosacral region (principal); M79.18 Myalgia, other site
CPT/HCPCS: 20610; 77002; J7325; Q9965

== ENCOUNTER → 2020-05-05 | Outpatient (CLI) | payer OTHER, MEDICAID ==
[2019-02-08 11:21] VITALS: BP 160/78
[~2020-05-05] MED LIST changes: +BUPIVACAINE MPF 0.25% 10 ML VIAL. ONE; +BUSP5TAB PO; -HYLAN G-F 20 48 MG/6 ML SYRINGE INT ART ONE; +IVAB5TAB PO; -LISI1TAB19 PO; +LISI1TAB37 PO; +methylPREDNISolone ACETATE 40 MG/ML VIAL. ONE; +methylPREDNISolone ACETATE 80 MG/ML VIAL. ONE
--- NOTE | 2020-05-05 11:11 | PDOC ---
Progress Note - Pain Clinic Date of Service: DOS: DATE: 05/05/20 TIME: 11:05 Diagnosis: Dx: Low back pain with lumbar radiculopathy and lumbar and lumbosacral spondylosis Myofascial pain Bilateral knee joint pain with osteoarthritis History or Present Illness: HPI: 45-year-old female returns follow-up status post right knee joint Synvisc injection with the good results about 60% improvement and still improved since the knee joint injection with still some significant pain in the knee with walking and standing but much better than it was. Patient ports her main complaint now is her back with right-sided back pain which she has had for multiple years we have treated with epidural steroid junction as well as facet joint injections most recently October 2019 patient did very well with the facet injections temporarily but reports the pain is returned now it is significant and becoming much more severe on the right side of low back worse with walking standing changing positions twisting to the right side specially extension of the lumbar spine and axial loading of the low back with pain into the right hip as well. Patient ports pain is 8 on scale 10 is worse over the past week for an average to its least is a 4 today. Patient was aching sharp burning dull cramping and stabbing at times as well. Patient reports no new motor or sensory deficits no bowel or bladder incontinence. Physical Exam: VS: Blood pressure is 174/123 pulse 65 respirations 20 temperature is 98.3 F height is 6 foot weight is 251 pounds PE: PHYSICAL EXAMINATION: GENERAL: The patient is awake, alert, oriented, appropriate, very pleasant demeanor HEENT: Shows normocephalic, atraumatic. Extraocular movements are intact and symmetrical. Oral cavity: Mucous membranes moist and pink. NECK: Shows anterior throat supple without palpable lymphadenopathy noted. Swallow reflex symmetrical. CHEST: Shows normal on inspection. Breath sounds are clear bilaterally, no rales rhonchi or wheezes auscultated. HEART: Shows S1, S2 clear. No murmurs auscultated. ABDOMEN: Soft, nontender, nondistended, obese. No palpable organomegaly is noted. No rebound or guarding demonstrated. BACK: Shows spine grossly in the midline. Normal-appearing cervical lordotic curvature. There is slightly increased thoracic kyphosis, some flattening of the lumbar lordotic curvature. Lumbar paraspinous muscles show symmetrical on inspection, on palpation shows some moderate tenderness diffusely throughout the upper, middle and lower distribution of the paraspinous muscles bilaterally and also into the lower thoracic paraspinous musculature, firm and tender, but without specific trigger points, without radiation of pain. The patient has good rotational motion of the lumbar spine, both laterally as well as extension and flexion, but with significant pain with right lateral rotation past 10 degrees as well as extension past 10 degrees with significant pain on the right side only. Pain is decreased with forward flexion at 45 degrees and no signifi cant pain with left lateral rotation. No tenderness over the spinous processes, sacrum or sacroiliac regions. EXTREMITIES: Lower extremities show deep tendon reflexes 1 in the patellar and tendo calcaneus tendons. Motor exam is 4 on a scale of 5 with right dorsiflexion, extension, quadriceps and hamstring flexion and 4/5 on the left. Peripheral pulses are [] posterior tibial. No peripheral edema is noted bilaterally. Lower extremities are warm and dry to touch, equal in color and appearance. The patient is able to stand, uses the arms of the chair to get up from a seated position favoring the right side slightly. Patient is walking with a favoring gait favoring the right lower extremity and is using a cane in her right hand to ambulate. SKIN: Shows warm and dry, good turgor. No edema. No sores, rashes or bruising throughout. Procedure: Procedure: Options were discussed with the patient. Patient will chart reviews her current medication regimen updated current review of systems updated today as well. We will proceed with right-sided facet joint injection at the L4-5 and L5-S1 levels with fluoroscopic guidance. Risks were discussed including but not limited to bleeding infection possibility of epidural hematoma subsequent neurological compromise dural puncture headache spinal cord and or nerve damage side effects of steroid medication and poor results chronic pain control. Patient understands wished to proceed. Patient return to clinic in approximately 2 weeks for follow-up or as necessary and was counseled as to return appointment active level and side effects be aware of. Medication Injected: Med Injected: Under sterile prep and drape using C-arm fluoroscopic guidance AP and lateral a nd oblique views, right L4-5 and L5-S1 facet joint injections were performed, medications injected: 120 mg Depo-Medrol +2 cc 0.25% bupivacaine +1 cc contrast. Condition at discharge stable patient tolerated the procedure well and no complications. Condition at Discharge: Condition at Discharge: Condition at discharge is stable patient tolerated procedure well had no complications. MAYITO PEREZ MD May 05, 2020 11:10
== END | disposition home or self-care (01) ==
LOC: PNCL 10:16
PROVIDERS: ATTEND Anesthesiology
DX: M47.817 Spondylosis without myelopathy or radiculopathy, lumbosacral region (principal); M17.0 Bilateral primary osteoarthritis of knee; M47.816 Spondylosis without myelopathy or radiculopathy, lumbar region; Z88.0 Allergy status to penicillin; Z88.2 Allergy status to sulfonamides; Z88.8 Allergy status to other drugs, medicaments and biological substances; Z87.891 Personal history of nicotine dependence; Z79.899 Other long term (current) drug therapy
CPT/HCPCS: 64493; 64494; J1030; J1040; J3490; Q9965

== ENCOUNTER → 2020-06-18 | Outpatient (CLI) | payer OTHER, MEDICAID ==
[2019-02-08 11:21] VITALS: BP 160/78
[~2020-06-18] MED LIST changes: +AMLO-186 PO; -AMLO5TAB10 PO; +DULO60CA6 PO; +IBUP-1027 PO; +MECO10005 PO
--- NOTE | 2020-06-18 10:50 | PDOC ---
Progress Note - Pain Clinic Date of Service: DOS: DATE: 06/18/20 TIME: 10:46 Diagnosis: Dx: Lumbar and lumbosacral spondylosis Myofascial pain Bilateral knee joint pain with osteoarthritis History or Present Illness: HPI: 45-year-old female returns follow-up status post right L4-5 and L5-S1 facet joint injection on May 05, 2020. Patient reports doing very well at 95% improvement of the right side now the pain is returning over the past few weeks increasing both sides of low back but not radiating to the lower extremities. Patient reports her pain is a 5 on a scale of 10 is worse over the past week for an average to its least is a 4 today. Patient which is aching and burning cramping at times sometimes severe worse with standing walking changing positions better with sitting or laying down but has been waking her from sleep about every 6 or 7 hours. Patient ports initially she was doing much better distance walking doing household activities work activities sleeping better and traveling with greater ease and comfort as well. Now the pain is returning across the low back worse on the right still but also on the left. Physical Exam: VS: Pressure is 116/87 pulse 88 respirations 18 temperature 98.2 F height is 6 foot weight is 257 pounds PE: PHYSICAL EXAMINATION: GENERAL: The patient is awake, alert, oriented, appropriate, very pleasant dem eanor HEENT: Shows normocephalic, atraumatic. Extraocular movements are intact and symmetrical. Oral cavity: Mucous membranes moist and pink. NECK: Shows anterior throat supple without palpable lymphadenopathy noted. Swallow reflex symmetrical. CHEST: Shows normal on inspection. Breath sounds are clear bilaterally. HEART: Shows S1, S2 clear. No murmurs auscultated. ABDOMEN: Soft, nontender, nondistended, obese. No palpable organomegaly is noted. No rebound or guarding demonstrated. BACK: Shows spine grossly in the midline. Normal-appearing cervical lordotic curvature. There is slightly increased thoracic kyphosis, some minor flattening of the lumbar lordotic curvature. Lumbar paraspinous muscles show symmetrical on inspection, on palpation shows some moderate tenderness diffusely throughout the upper, middle and lower distribution of the paraspinous muscles bilaterally, but without specific trigger points, without radiation of pain. The patient has good rotational motion of the lumbar spine, both laterally as well as extension and flexion, but with some increased pain with extension and axial loading of the low back more on the right than the left are present bilaterally this is also present with right and left lateral rotation worse again on the right side at greater than 10 degrees but not with forward flexion. No tenderness over the spinous processes, sacrum or sacroiliac regions. EXTREMITIES: Lower extremities show deep tendon reflexes 1+ in the patellar and tendo calcaneus tendons. Motor exam is 4 on a scale of 5 with right dorsiflexion, extension, quadriceps and hamstring flexion and 4/5 on the left. Peripheral pulses are 1+ posterior tibial. No peripheral edema is noted bilaterally. Lower extremities are warm and dry to touch, equal in color and appearance. SKIN: Shows warm and dry, good turgor. No edema. No sores, rashes or bruising throughout. Procedure: Procedure: Options were discussed with the patient. Patient's old chart was reviewed as her current medication regimen updated current review of systems updated today as well. We will proceed with bilateral L4-5 and L5-S1 facet joint injections today with fluoroscopic guidance. Risks were discussed including but not limited to: Bleeding, infection, possibility of epidural hematoma and subsequent neurological compromise, dural puncture, headaches, spinal cord and/or nerve damage, side effects of steroid medication, and poor results regarding pain control. Patient understands wished to proceed. Possibly 2 weeks for follow-up was counseled as to return appointment activity level and side effects to be aware of. Medication Injected: Med Injected: Under sterile prep and drape using C-arm fluoroscopic guidance AP and lateral and oblique views, bilateral L4-5 and L5-S1 facet joint injections, medications injected: 120 mg Depo-Medrol +4 cc 0.25% bupivacaine +2 cc contrast. Condition at discharge stable patient tolerated the procedure well and no complications. Condition at Discharge: Condition at Discharge: Condition at discharge is stable patient tolerated the procedure well and had no complications. MAYITO PEREZ MD Jun 18, 2020 10:50
== END ==
LOC: PNCL 10:12
PROVIDERS: ATTEND Anesthesiology
DX: M47.816 Spondylosis without myelopathy or radiculopathy, lumbar region (principal); M47.817 Spondylosis without myelopathy or radiculopathy, lumbosacral region; M17.0 Bilateral primary osteoarthritis of knee; M79.18 Myalgia, other site; I10 Essential (primary) hypertension; F41.9 Anxiety disorder, unspecified; F32.9 Major depressive disorder, single episode, unspecified; E78.00 Pure hypercholesterolemia, unspecified; K21.9 Gastro-esophageal reflux disease without esophagitis; Z88.0 Allergy status to penicillin; Z88.2 Allergy status to sulfonamides; Z88.8 Allergy status to other drugs, medicaments and biological substances
CPT/HCPCS: 64635; 64636; J1030; J1040; J3490; Q9965

== ENCOUNTER → 2020-08-13 | Outpatient (CLI) | payer OTHER, MEDICAID ==
[2019-02-08 11:21] VITALS: BP 160/78
--- NOTE | 2020-08-13 09:17 | PDOC ---
Progress Note - Pain Clinic Date of Service: DOS: DATE: 08/13/20 TIME: 09:14 Diagnosis: Dx: Lumbar and lumbosacral spondylosis Myofascial pain Bilateral knee joint pain with osteoarthritis History or Present Illness: HPI: 45-year-old female returns follow-up status post bilateral L4-5 and L5-S1 facet joint injections June 18, 2020. Patient which did very well with these with approximately 75% improvement pain returning now in the bilateral low back more on the right than the left and present bilaterally. Patient rates pain is a 5 on a scale of 10 is worse over the past week for an average 3 displeasing is a 4 today. Patient scribes pain is aching and dull on and off in intensity worse with sitting for prolonged periods standing for prolonged periods extension lumbar spine especially bending and stooping. Patient reports no new motor or sensory deficits no bowel or bladder incontinence initially was doing much better with distance walking doing household activities and travel with greater ease and comfort patient reports he still sleeps well at night does not awaken her from sleep. Physical Exam: VS: Blood pressure is 143/101 pulse 59 respirations 16 temperature is 98.3 F height is 6 foot weight is 263 pounds PE: PHYSICAL EXAMINATION: GENERAL: The patient is awake, alert, oriented, appropriate, very pleasant demeanor HEENT: Shows normocephalic, atraumatic. Extraocular movements are intact and symmetrical. NECK: Shows anterior throat supple without palpable lymphadenopathy noted. Swallow reflex symmetrical. CHEST: Shows normal on inspection. Breath sounds are clear bilaterally. HEART: Shows S1, S2 clear. No murmurs auscultated. ABDOMEN: Soft, nontender, nondistended, obese. No palpable organomegaly is noted. No rebound or guarding demonstrated. BACK: Shows spine grossly in the midline. Normal-appearing cervical lordotic curvature. There is slightly increased thoracic kyphosis, some minor flattening of the lumbar lordotic curvature. Lumbar paraspinous muscles show symmetrical on inspection, on palpation shows some moderate tenderness diffusely throughout the upper, middle and lower distribution of the paraspinous muscles bilaterally and also into the lower thoracic paraspinous musculature, firm and tender, but without specific trigger points, without radiation of pain. The patient has good rotational motion of the lumbar spine, both laterally as well as extension and flexion with significant tenderness with extension greater than 10 degrees and axial loading of the lumbar spine better with forward flexion and right and left lateral rotation slightly more tender on the right with rotation past 10 degrees than the left with pain bilaterally. No tenderness over the spinous processes, sacrum or sacroiliac regions. EXTREMITIES: Lower extremities show deep tendon reflexes 1+ in the patellar and tendo calcaneus tendons. Motor exam is 4 on a scale of 5 with right dorsiflexion, extension, quadriceps and hamstring flexion and 4/5 on the left. Peripheral pulses are 1+ posterior tibial. No peripheral edema is noted bilaterally. Lower extremities are warm and dry to touch, equal in color and ap pearance. SKIN: Shows warm and dry, good turgor. No edema. No sores, rashes or bruising throughout. Procedure: Procedure: Options were discussed with the patient. Patient chart was reviewed as her current medication regimen updated current review of systems updated today as well. We will proceed with bilateral L4-5 and L5-S1 facet joint injections today with fluoroscopic guidance. Risks were discussed including but not limited to: Bleeding, infection, possibility of epidural hematoma and subsequent neurological compromise, dural puncture, headaches, spinal cord and/or nerve damage, side effects of steroid medication, and poor results regarding pain control. Patient understands wished to proceed. Patient will return to clinic in approximate 2 weeks for follow-up, was counseled as return appointment activity level and side effects to be aware of. Medication Injected: Med Injected: Under sterile prep and drape using C-arm fluoroscopic guidance AP and lateral and oblique views, bilateral L4-5 and L5-S1 facet joint injections were performed, medications injected: 120 mg Depo-Medrol +4 cc 0.25% bupivacaine +2 cc contrast. Condition at discharge stable patient tolerated the procedure well and no complications. Condition at Discharge: Condition at Discharge: Condition at discharge is stable, patient tolerated procedure well and had no complications. MAYITO PEREZ MD Aug 13, 2020 09:17
== END | disposition home or self-care (01) ==
LOC: PNCL 08:15
PROVIDERS: ATTEND Anesthesiology
DX: M47.817 Spondylosis without myelopathy or radiculopathy, lumbosacral region (principal); M17.0 Bilateral primary osteoarthritis of knee; M79.18 Myalgia, other site; I10 Essential (primary) hypertension; E78.00 Pure hypercholesterolemia, unspecified; K21.9 Gastro-esophageal reflux disease without esophagitis; E66.9 Obesity, unspecified; F41.9 Anxiety disorder, unspecified; F32.9 Major depressive disorder, single episode, unspecified; M19.90 Unspecified osteoarthritis, unspecified site; G47.30 Sleep apnea, unspecified; Z90.710 Acquired absence of both cervix and uterus; Z98.890 Other specified postprocedural states; Z79.899 Other long term (current) drug therapy; Z88.0 Allergy status to penicillin; Z88.1 Allergy status to other antibiotic agents; Z88.2 Allergy status to sulfonamides; Z88.8 Allergy status to other drugs, medicaments and biological substances
CPT/HCPCS: 64493; 64494; J1030; J1040; J3490; Q9965; 64635; 64636

== ENCOUNTER → 2020-08-27 | Outpatient (CLI) | payer OTHER, MEDICAID ==
[2019-02-08 11:21] VITALS: BP 160/78
[~2020-08-27] MED LIST changes: -BUPIVACAINE MPF 0.25% 10 ML VIAL. ONE; -IOHEXOL 180 MG/ML 10 ML VIAL. ONE; -methylPREDNISolone ACETATE 40 MG/ML VIAL. ONE; -methylPREDNISolone ACETATE 80 MG/ML VIAL. ONE
--- NOTE | 2020-08-27 10:09 | PDOC ---
Progress Note - Pain Clinic Date of Service: DOS: DATE: 08/27/20 TIME: 10:05 Diagnosis: Dx: Lumbar radiculopathy with lumbar and lumbosacral spondylosis Myofascial pain Bilateral knee joint pain with osteoarthritis History or Present Illness: HPI: 45-year-old female returns follow-up status post lumbar facet injections the L4- 5 and L5-S1 bilaterally. Patient reports about 90% improvement initially and now still about 75% improved with the low back pain. Patient reports her main complaint is knee pain right greater than left much worse with walking standing climbing stairs or stepping up on curbs putting all of her weight on 1 leg or the other. Patient reports is aching and dull in the knees bilaterally again right right and left rated a 3 on scale 10 is worse lately to on average 1 its least is a 3 today. Patient reports no new motor or sensory deficits she did have Synvisc injections about 6 months ago with very good results in decreasing the pain but the pain is returning now with the knees bilaterally with ambulation. Better with sitting or laying down generally does not awaken her from sleep at night. Patient reports that after her facet injection she was doing much better with distance walking doing household activities much greater ease and comfort and travel with greater ease as well. No other motor or sensory complaints or deficits. Physical Exam: VS: Blood pressure is 149/116 pulse 96 respirations 20 temperature 98.0 F height is 6 foot weight is 266 pounds PE: PHYSICAL EXAMINATION: GENERAL: The patient is awake, alert, oriented, appropriate, very pleasant demeanor HEENT: Shows normocephalic, atraumatic. Extraocular movements are intact and symmetrical. Oral cavity: Mucous membranes moist and pink. Dentition is intact. NECK: Shows anterior throat supple without palpable lymphadenopathy noted. Swallow reflex symmetrical. CHEST: Shows normal on inspection. Breath sounds are clear bilaterally, no rales or rhonchi. HEART: Shows S1, S2 clear. No murmurs auscultated. ABDOMEN: Soft, nontender, nondistended, obese. No palpable organomegaly is noted. No rebound or guarding demonstrated. BACK: Shows spine grossly in the midline. Normal-appearing cervical lordotic curvature. There is increased thoracic kyphosis, some flattening of the lumbar lordotic curvature. Lumbar paraspinous muscles show symmetrical on inspection, on palpation shows some moderate tenderness diffusely throughout the upper, middle and lower distribution of the paraspinous muscles bilaterally and also into the lower thoracic paraspinous musculature, but without specific trigger points, without radiation of pain. The patient has good rotational motion of the lumbar spine, both laterally as well as extension and flexion without significant difficulty. No tenderness over the spinous processes, sacrum or sacroiliac regions. EXTREMITIES: Lower extremities show deep tendon reflexes 1+ in the patellar and tendo calcaneus tendons. Motor exam is 4 on a scale of 5 with right dorsiflexion, extension, quadriceps and hamstring flexion and 4/5 on the left. Peripheral pulses are 1+ posterior tibial. No peripheral edema is noted bilaterally. Lower extremities are warm and dry to touch, equal in color and appearance. SKIN: Shows warm and dry, good turgor. No edema. No sores, rashes or bruising throughout. Procedure: Procedure: Options were discussed with the patient. Patient chart was reviewed as her current medication regimen updated current review of systems updated today as well. We will preauthorize patient for Synvisc injections bilateral knees and he is done very well with these in the past. We will have the medication ordered and once available we will proceed right knee first, then the left knee. Patient continue with stretching strength exercises regarding the low back as currently. Medication Injected: Med Injected: None Condition at Discharge: Condition at Discharge: Condition at discharge is stable. MAYITO PEREZ MD Aug 27, 2020 10:09
== END | disposition home or self-care (01) ==
LOC: PNCL 08:53
PROVIDERS: ATTEND Anesthesiology
DX: M47.26 Other spondylosis with radiculopathy, lumbar region (principal); M17.0 Bilateral primary osteoarthritis of knee; E66.01 Morbid (severe) obesity due to excess calories; E78.2 Mixed hyperlipidemia; I10 Essential (primary) hypertension; F41.9 Anxiety disorder, unspecified; F32.1 Major depressive disorder, single episode, moderate; K29.50 Unspecified chronic gastritis without bleeding; K21.00 Gastro-esophageal reflux disease with esophagitis, without bleeding; G47.33 Obstructive sleep apnea (adult) (pediatric); M79.7 Fibromyalgia; Z88.0 Allergy status to penicillin; Z88.6 Allergy status to analgesic agent; Z88.2 Allergy status to sulfonamides; Z88.8 Allergy status to other drugs, medicaments and biological substances; Z79.1 Long term (current) use of non-steroidal anti-inflammatories (NSAID); Z98.890 Other specified postprocedural states; Z87.19 Personal history of other diseases of the digestive system; Z87.891 Personal history of nicotine dependence; Z86.010 Personal history of colon polyps; Z90.3 Acquired absence of stomach [part of]; Z90.710 Acquired absence of both cervix and uterus; Z68.43 Body mass index [BMI] 50.0-59.9, adult; Z72.89 Other problems related to lifestyle; Z98.891 History of uterine scar from previous surgery; Z87.39 Personal history of other diseases of the musculoskeletal system and connective tissue
CPT/HCPCS: G0463

== ENCOUNTER → 2020-09-08 | Outpatient (CLI) | payer OTHER, MEDICAID ==
[2019-02-08 11:21] VITALS: BP 160/78
[~2020-09-08] MED LIST changes: +HYLAN G-F 20 48 MG/6 ML SYRINGE INT ART ONE; +IOHEXOL 180 MG/ML 10 ML VIAL. ONE
--- NOTE | 2020-09-08 10:54 | PDOC ---
Progress Note - Pain Clinic Date of Service: DOS: DATE: 09/08/20 TIME: 10:50 Diagnosis: Dx: Bilateral knee joint pain with osteoarthritis Lumbar radiculopathy with lumbar and lumbosacral spondylosis Myofascial pain History or Present Illness: HPI: 45-year-old female returns follow-up status post lumbar facet injections as well as bilateral knee injections and intramuscular injection trigger points. Patient reports she is done very well with each of these her main complaint is pain in the bilateral knees right greater than left. We ordered Synvisc 1 is available today she would like to proceed with the right knee as is the most painful. Patient is done well with these in the past and is complaining of significant pain again right greater than left with walking standing charu ghtbearing climbing stairs putting all her weight on 1 leg or the other patient reports her pain is a 5 on a scale of 10 is worse over the past week 3 on average 1 to its least and is a 5 today patient ports aching sharp and dull alternating in the knees himself patient also has some pain in the low back but is much better after recent facet injections. Patient reports no new motor or sensory deficits no new bowel or bladder incontinence or complaints. Physical Exam: VS: Blood pressure is 160/114 pulse 90 respirations 20 temperature is 90.5 F height is 6 foot PE: PHYSICAL EXAMINATION: GENERAL: The patient is awake, alert, oriented, appropriate, very pleasant demeanor HEENT: Shows normocephalic, atraumatic. Extraocular movements are intact and symmetrical. Oral cavity: Mucous membranes moist and pink. Dentition is intact. NECK: Shows anterior throat supple without palpable lymphadenopathy noted. Swallow reflex symmetrical. CHEST: Shows normal on inspection. Breath sounds are clear bilaterally, no rales or rhonchi. HEART: Shows S1, S2 clear. No murmurs auscultated. ABDOMEN: Soft, nontender, nondistended, obese. No palpable organomegaly is noted. No rebound or guarding demonstrated. BACK: Shows spine grossly in the midline. Normal-appearing cervical lordotic curvature. There is slightly increased thoracic kyphosis, some minor flattening of the lumbar lordotic curvature. Lumbar paraspinous muscles show symmetrical on inspection, on palpation shows some moderate tenderness diffusely throughout the upper, middle and lower distribution of the paraspinous muscles, but without specific trigger points, without radiation of pain. The patient has good rotational motion of the lumbar spine, both laterally as well as extension and flexion without significant difficulty. No tenderness over the spinous processes, sacrum or sacroiliac regions. EXTREMITIES: Lower extremities show deep tendon reflexes 1+ in the patellar and tendo calcaneus tendons. Motor exam is 4 on a scale of 5 with right dorsiflexion, extension, quadriceps and hamstring flexion and 4/5 on the left. Peripheral pulses are 1+ posterior tibial. No peripheral edema is noted bilaterally. Lower extremities are warm and dry to touch, equal in color and appearance. Patient's knees show good motion passively with some mild ratcheting on the right but not the left and audible popping on the right but not the left with passive hinge motion. SKIN: Shows warm and dry, good turgor. No edema. No sores, rashes or bruising throughout. Procedure: Procedure: Options were discussed with the patient. Patient chart reviews her current medication regimen updated current review of systems updated today as well. We will proceed with a right intra-articular knee joint Synvisc 1 injection today with fluoroscopic guidance. Risk were discussed including but not limited to bleeding infection possibility of intravascular injection sequelae spread of Synvisc 1 and poor results regarding pain control as well as exposure to fluoroscopy. Patient understands wished to proceed. Patient will return to clinic in approximately 1 week for follow-up. Patient given instructions well side effects to be aware of. Medication Injected: Med Injected: Under sterile prep and drape patient's right knee was prepped and draped and using C-arm fluoroscopic guidance identified the medial to central component of the knee was identified topically anesthetized using 1% lidocaine and then using a 22-gauge needle with stylette, joint was entered without difficulty. Stylet was removed and aspiration was completed of approximately 4 cc after verification with contrast 1 cc in the joint space itself. At this time Synvisc one,6cc series was slowly injected and the needle was withdrawn and sterile bandage was applied. Patient tolerated procedure well and had no complications. Condition at Discharge: Condition at Discharge: Condition at discharge is stable, patient tolerated procedure well and had no complications. MAYITO PEREZ MD Sep 08, 2020 10:54
== END | disposition home or self-care (01) ==
LOC: PNCL 10:07
PROVIDERS: ATTEND Anesthesiology
DX: M17.0 Bilateral primary osteoarthritis of knee (principal); M47.26 Other spondylosis with radiculopathy, lumbar region; M79.18 Myalgia, other site; Z88.0 Allergy status to penicillin; Z88.1 Allergy status to other antibiotic agents; Z88.8 Allergy status to other drugs, medicaments and biological substances; Z98.890 Other specified postprocedural states
CPT/HCPCS: 20610; 77002; J7325; Q9965

== ENCOUNTER → 2020-09-17 | Outpatient (CLI) | payer OTHER, MEDICAID ==
[2019-02-08 11:21] VITALS: BP 160/78
--- NOTE | 2020-09-17 12:27 | PDOC ---
Progress Note - Pain Clinic Date of Service: DOS: DATE: 09/17/20 TIME: 12:23 Diagnosis: Dx: Bilateral knee joint pain with osteoarthritis bilateral knees Lumbar radiculopathy with lumbar and lumbosacral spondylosis Myofascial pain History or Present Illness: HPI: 45-year-old female with returns for follow-up status post lumbar facet joint injections with about 90% improvement in then right knee Synvisc 1 injection with near 100% improvement. Patient ports her main complaint is her left knee joint pain with walking standing putting all her weight on her left knee as her right knee is doing much better she is noticing the left one is much more painf ul and outpatient but is aching and dull worse with weightbearing standing and walking better with sitting or laying down generally does not awaken her from sleep at night patient reports her pain is a 3 on scale 10 is worst over the past week 1 on average to its least and is a 2 today. She reports no new motor or sensory deficits no new changes. Physical Exam: VS: Blood pressure is over 114 pulse 61 respirations 18 temperature 98.7 F height is 6 foot weight is 269 pounds PE: PHYSICAL EXAMINATION: GENERAL: The patient is awake, alert, oriented, appropriate, very pleasant dem eanor HEENT: Shows normocephalic, atraumatic. Extraocular movements are intact and symmetrical. NECK: Shows anterior throat supple without palpable lymphadenopathy noted. Swallow reflex symmetrical. CHEST: Shows normal on inspection. Breath sounds are clear bilaterally. HEART: Shows S1, S2 clear. No murmurs auscultated. ABDOMEN: Soft, nontender, nondistended, obese. No palpable organomegaly is noted. No rebound or guarding demonstrated. BACK: Shows spine grossly in the midline. Normal-appearing cervical lordotic curvature. There is slightly increased thoracic kyphosis, some minor flattening of the lumbar lordotic curvature. Lumbar paraspinous muscles show symmetrical on inspection, on palpation shows some moderate tenderness diffusely throughout the upper, middle and lower distribution of the paraspinous muscles bilaterally and also into the lower thoracic paraspinous musculature, firm and tender, but without specific trigger points, without radiation of pain. Lower extremities are warm and dry to touch, equal in color and appearance. Patient's left knee shows moderate tenderness with weightbearing but no specific tenderness or displacement with medial or lateral palpation over the collateral ligaments patient shows good hinged motion without ratcheting or crepitus. Right knee is nontender and with good range of motion without pain as well.. SKIN: Shows warm and dry, good turgor. No edema. No sores, rashes or bruising throughout. Procedure: Procedure: Options were discussed with the patient remains on chart reviewed as her current medication regimen updated current review of systems updated today as well. With a Synvisc 1 injection for the left knee with fluoroscopic guidance. Risks were discussed including but not limited to bleeding infection possibility of intravascular injection sequelae spread local acetic numbness spread of Synvisc 1 and poor results regarding pain control. Patient understands wished to proceed. Patient return to clinic in approximate 4 weeks for follow-up was counseled as to return appointment activity level and side effects to be aware of. Medication Injected: Med Injected: Under sterile prep and drape patient in supine position using C-arm fluoroscopic guidance patient's left knee was sterilely prepped and draped in usual fashion using 1% lidocaine was then anesthetized over the skin and subcutaneous tissues using a 22-gauge needle patient's left knee joint was entered under direct visualization with fluoroscopy without difficulty aspiration approximately 2 cc of synovial fluid was then carried out and 1.5 cc of contrast was used to verify intra-articular placement without washout. At this time 6 cc of Synvisc 1 was then injected into the joint needle was removed and sterile bandage was applied. Patient tolerated the procedure well and had no complications. Condition at Discharge: Condition at Discharge: Condition at discharge stable, patient tolerated procedure well had no complications. MAYITO PEREZ MD Sep 17, 2020 12:27
== END | disposition home or self-care (01) ==
LOC: PNCL 11:11
PROVIDERS: ATTEND Anesthesiology
DX: M17.0 Bilateral primary osteoarthritis of knee (principal); M47.27 Other spondylosis with radiculopathy, lumbosacral region; M79.18 Myalgia, other site; I10 Essential (primary) hypertension; E78.00 Pure hypercholesterolemia, unspecified; K21.9 Gastro-esophageal reflux disease without esophagitis; E66.9 Obesity, unspecified; G47.30 Sleep apnea, unspecified; F41.9 Anxiety disorder, unspecified; F32.9 Major depressive disorder, single episode, unspecified; Z90.710 Acquired absence of both cervix and uterus; Z98.890 Other specified postprocedural states; Z79.899 Other long term (current) drug therapy; Z87.891 Personal history of nicotine dependence; Z72.89 Other problems related to lifestyle; Z88.0 Allergy status to penicillin; Z88.2 Allergy status to sulfonamides; Z88.8 Allergy status to other drugs, medicaments and biological substances; Z88.1 Allergy status to other antibiotic agents
CPT/HCPCS: 20610; 77002; J7325; Q9965

== ENCOUNTER → 2020-11-06 | Outpatient (CLI) | payer OTHER, MEDICAID ==
[2019-02-08 11:21] VITALS: BP 160/78
[~2020-11-06] MED LIST changes: -HYLAN G-F 20 48 MG/6 ML SYRINGE INT ART ONE; +methylPREDNISolone ACETATE 40 MG/ML VIAL. ONE; +methylPREDNISolone ACETATE 80 MG/ML VIAL. ONE
--- NOTE | 2020-11-06 10:14 | PDOC ---
Progress Note - Pain Clinic Date of Service: DOS: DATE: 11/06/20 TIME: 10:11 Diagnosis: Dx: Lumbar radiculopathy with lumbar spondylosis Myofascial pain Bilateral knee joint pain with osteoarthritis History or Present Illness: HPI: 45-year-old female returns follow-up status post lumbar facet injection as well as bilateral Synvisc injections in bilateral knees. Patient reports her knee is doing much better about 90% improvement but her main complaint is pain low back radiating to the left lower extremity posterior gluteus posterior lateral thigh lateral anterior thigh anterior medial lower leg into the lateral calf and the top of the foot on the left side. Patient reports is getting worse over the past 2 to 3 weeks no specific injury or accident that she is aware of and has been awakened from sleep frequently patient reports worse with walking standing changing positions again with lying down does not relieve it patient reports her knees are doing much better with distance walking but now her pain in the left lower extremity in a radicular fashion is becoming much worse patient rates is a 10 on scale 10 is worse over the past week 8 on average 6 its least is an 8 today. Patient describes as aching sharp dull tight shooting across the back and into the left lower extremity has described with radiating and constant pain with walking. Patient reports it can be severe at times. She reports no new motor or sensory deficits no new bowel or bladder incontinence. Physical Exam: VS: Blood pressure is 143/107 pulse 77 respiration 16 temp 98.6 degrees Fahrenheit height is 6 foot weight is 269 pounds PE: PHYSICAL EXAMINATION: GENERAL: The patient is awake, alert, oriented, appropriate, very pleasant demeanor HEENT: Shows normocephalic, atraumatic. Extraocular movements are intact and symmetrical. Oral cavity: Mucous membranes moist and pink. Dentition is intact. NECK: Shows anterior throat supple without palpable lymphadenopathy noted. Swallow reflex symmetrical. CHEST: Shows normal on inspection. Breath sounds are clear bilaterally. HEART: Shows S1, S2 clear. No murmurs auscultated. ABDOMEN: Soft, nontender, nondistended, obese. No palpable organomegaly is noted. BACK: Shows spine grossly in the midline. Normal-appearing cervical lordotic curvature. There is increased thoracic kyphosis, some minor flattening of the lumbar lordotic curvature. Lumbar paraspinous muscles show symmetrical on inspection, on palpation shows some moderate tenderness diffusely throughout the upper, middle and lower distribution of the paraspinous muscles, but without specific trigger points, without radiation of pain. The patient has good rotational motion of the lumbar spine, both laterally as well as extension and flexion without significant difficulty. EXTREMITIES: Lower extremities show deep tendon reflexes 1+ in the patellar and tendo calcaneus tendons. Motor exam is 5 on a scale of 5 with right dorsiflexion, extension, quadriceps and hamstring flexion and 4/5 on the left. Peripheral pulses are 1+ posterior tibial. No peripheral edema is noted bilaterally. Lower extremities are warm and dry to touch, equal in color and appearance. SKIN: Shows warm and dry, good turgor. No edema. No sores, rashes or bruising throughout. Procedure: Procedure: Options were discussed with the patient. Patient chart was reviewed as her current medication regimen updated current review of systems updated today as well. We will proceed with a lumbar epidural steroid injection today with fluoroscopic guidance. Risks were discussed including but not limited to: Bleeding, infection, possibility of epidural hematoma and subsequent neurological compromise, dural puncture, headaches, spinal cord and/or nerve damage, side effects of steroid medication, and poor results regarding pain control. Patient understands and wished to proceed. Patient will return to the clinic in approximate 2 weeks for follow-up, was counseled as to return appointment activity level and side effects to be aware of. Medication Injected: Med Injected: Procedure is lumbar epidural steroid injection under local anesthetic using sterile prep and drape at the L4-5 level using C-arm fluoroscopic guidance in both AP and lateral views medications injected is 120 mg Depo-Medrol + 10 mL preservative-free normal saline and 2 mL contrast- condition at discharge is stable patient tolerated procedure well had no complications. Condition at Discharge: Condition at Discharge: Condition at discharge stable, patient alert procedure well had no complications. MAYITO PEREZ MD Nov 06, 2020 10:14
--- NOTE | 2020-11-06 10:15 | PDOC4 ---
PROCEDURE Procedure Patient was consented for lumbar epidural steroid injection. Risks were dis cussed including but not limited to: Bleeding, infection, possibility of epidural hematoma and subsequent neurological compromise, dural puncture, headaches, spinal cord and/or nerve damage, side effects of steroid medication, and poor results regarding pain control. Patient understands and wished to proceed. Procedure is lumbar epidural steroid injection under local anesthetic using sterile prep and drape at the L4-5 level using C-arm fluoroscopic guidance in both AP and lateral views medications injected is 120 mg Depo-Medrol + 10 mL preservative-free normal saline and 2 mL contrast- condition at discharge is stable patient tolerated procedure well had no complications. MAYITO PEREZ MD Nov 06, 2020 10:15
== END | disposition home or self-care (01) ==
LOC: PNCL 09:30
PROVIDERS: ATTEND Anesthesiology
DX: M47.26 Other spondylosis with radiculopathy, lumbar region (principal); M17.0 Bilateral primary osteoarthritis of knee; M54.5 Low back pain; M79.10 Myalgia, unspecified site; E78.00 Pure hypercholesterolemia, unspecified; I10 Essential (primary) hypertension; G47.30 Sleep apnea, unspecified; K21.9 Gastro-esophageal reflux disease without esophagitis; E66.9 Obesity, unspecified; M19.90 Unspecified osteoarthritis, unspecified site; F41.9 Anxiety disorder, unspecified; F32.9 Major depressive disorder, single episode, unspecified; Z90.710 Acquired absence of both cervix and uterus; Z98.890 Other specified postprocedural states; Z79.899 Other long term (current) drug therapy; Z87.891 Personal history of nicotine dependence; Z72.89 Other problems related to lifestyle; Z88.0 Allergy status to penicillin; Z88.1 Allergy status to other antibiotic agents; Z88.2 Allergy status to sulfonamides; Z88.8 Allergy status to other drugs, medicaments and biological substances
CPT/HCPCS: 62323; J1030; J1040; Q9965

== ENCOUNTER → 2020-11-26 | Outpatient (CLI) | payer OTHER, MEDICAID ==
[2019-02-08 11:21] VITALS: BP 160/78
--- NOTE | 2020-11-26 14:04 | PDOC ---
Progress Note - Pain Clinic Date of Service: DOS: DATE: 11/26/20 TIME: 13:37 Diagnosis: Dx: Lumbar radiculopathy with lumbar degenerative disease and lumbar and lumbosacral spondylosis History or Present Illness: HPI: 45-year-old female returns to follow-up status post lumbar epidural steroid traction x1. Patient reports about 50% improvement in the low back but her left leg still significantly painful with pain rating the posterior gluteus now more in the posterior thigh and lateral calf patient reports worse with walking standing changing positions getting worse over the past week or so patient reports prior that she doing better with distance walking doing household activities travel with greater ease and comfort now the pain is increasing with a rated as a 9 on scale 10 is worst over the past week 7 on average 5 its least and is a 7 today patient reports aching sharp dull tight shooting can be constant severe radiating with some tingling and stabbing in the back as well patient reports no new motor or sensory deficits no new bowel or bladder incontinence or other complaints. Physical Exam: VS: Blood pressure is 163/109 pulse 66 respiration 16 temperature 98.2 F height is 6 foot weight 276 pounds PE: PHYSICAL EXAMINATION: GENERAL: The patient is awake, alert, oriented, appropriate, very pleasant demeanor HEENT: Shows normocephalic, atraumatic. Extraocular movements are intact and symmetrical. NECK: Shows anterior throat supple without palpable lymphadenopathy noted. Swallow reflex symmetrical. CHEST: Shows normal on inspection. Breath sounds are clear bilaterally. HEART: Shows S1, S2 clear. No murmurs auscultated. ABDOMEN: Soft, nontender, nondistended, obese. No palpable organomegaly is noted. No rebound or guarding demonstrated. BACK: Shows spine grossly in the midline. Normal-appearing cervical lordotic curvature. There is slightly increased thoracic kyphosis, some minor flattening of the lumbar lordotic curvature. Lumbar paraspinous muscles show symmetrical on inspection, on palpation shows some moderate tenderness diffusely throughout the upper, middle and lower distribution of the paraspinous muscles without specific trigger points, without radiation of pain. The patient has good rotational motion of the lumbar spine, both laterally as well as extension and flexion without significant difficulty. No tenderness over the spinous processes, sacrum or sacroiliac regions. EXTREMITIES: Lower extremities show deep tendon reflexes 1+ in the patellar and tendo calcaneus tendons. Motor exam is 5 on a scale of 5 with right dorsiflexion, extension, quadriceps and hamstring flexion and 4/5 on the left. Peripheral pulses are 1+ posterior tibial. No peripheral edema is noted bilaterally. Lower extremities are warm and dry to touch, equal in color and appearance. SKIN: Shows warm and dry, good turgor. No edema. No sores, rashes or bruising throughout. Procedure: Procedure: Options discussed with the patient. Patient chart reviews her current medication regimen updated current basis today as well. We will proceed with a second in a series lumbar epidural steroid injection today with fluoroscopic guidance. Risks were discussed including but not limited to: Bleeding, infection, possibility of epidural hematoma and subsequent neurological compromise, dural puncture, headaches, spinal cord and/or nerve damage, side effects of steroid medication, and poor results regarding pain control. Patient understands and wished to proceed. Patient return to the clinic in approximate 2 weeks for follow-up, was counseled as return appointment, activity level, and side effects to be aware of. Medication Injected: Med Injected: Procedure is lumbar epidural steroid injection under local anesthetic using sterile prep and drape at the L5-S1 level using C-arm fluoroscopic guidance in both AP and lateral views medications injected is 120 mg Depo-Medrol + 10 mL preservative-free normal saline and 2 mL contrast- condition at discharge is stable patient tolerated procedure well had no complications. Condition at Discharge: Condition at Discharge: Condition at discharge stable, patient already the procedure well and had no complications. MAYITO PEREZ MD Nov 26, 2020 14:04
--- NOTE | 2020-11-26 14:05 | PDOC4 ---
PROCEDURE Procedure Patient was consented for lumbar epidural steroid injection. Risks were dis cussed including but not limited to: Bleeding, infection, possibility of epidural hematoma and subsequent neurological compromise, dural puncture, headaches, spinal cord and/or nerve damage, side effects of steroid medication, and poor results regarding pain control. Patient understands and wished to proceed. Procedure is lumbar epidural steroid injection under local anesthetic using sterile prep and drape at the L5-S1 level using C-arm fluoroscopic guidance in both AP and lateral views medications injected is 120 mg Depo-Medrol + 10 mL preservative-free normal saline and 2 mL contrast- condition at discharge is stable patient tolerated procedure well had no complications. MAYITO PEREZ MD Nov 26, 2020 14:04
== END | disposition home or self-care (01) ==
LOC: PNCL 13:23
PROVIDERS: ATTEND Anesthesiology
DX: M51.16 Intervertebral disc disorders with radiculopathy, lumbar region (principal); M47.26 Other spondylosis with radiculopathy, lumbar region; I10 Essential (primary) hypertension; E78.00 Pure hypercholesterolemia, unspecified; G47.30 Sleep apnea, unspecified; E66.9 Obesity, unspecified; K21.9 Gastro-esophageal reflux disease without esophagitis; M19.90 Unspecified osteoarthritis, unspecified site; F41.9 Anxiety disorder, unspecified; F32.9 Major depressive disorder, single episode, unspecified; Z90.710 Acquired absence of both cervix and uterus; Z98.890 Other specified postprocedural states; Z79.899 Other long term (current) drug therapy; Z87.891 Personal history of nicotine dependence; Z72.89 Other problems related to lifestyle; Z88.0 Allergy status to penicillin; Z88.1 Allergy status to other antibiotic agents; Z88.2 Allergy status to sulfonamides; Z88.8 Allergy status to other drugs, medicaments and biological substances
CPT/HCPCS: 62323; J1030; J1040; Q9965; 77002

== ENCOUNTER → 2020-12-22 | Outpatient (CLI) | payer OTHER, MEDICAID ==
[2019-02-08 11:21] VITALS: BP 160/78
[~2020-12-22] MED LIST changes: +PREG225C PO
--- NOTE | 2020-12-22 08:24 | PDOC ---
Progress Note - Pain Clinic Date of Service: DOS: DATE: 12/22/20 TIME: 08: Diagnosis: Dx: Lumbar radiculopathy with lumbar degenerative disease lumbar spondylosis Myofascial pain Bilateral knee joint pain with osteoarthritis History or Present Illness: HPI: 45-year-old female returns follow-up status post lumbar epidural steroid traction x1. Patient reports about 90% improvement for the first week then over the next week the pain began to gradually return increase in the low back and left lower extremity. Patient reports is worse now in the low back posterior gluteus posterior thigh posterior calf on the left side only some pain in the right back but not in the right lower extremity. Patient reports is worse with walking standing changing positions initially she was doing much better with walking doing household activities travel with greater ease and comfort now the pain is returning patient reports that the tingling pain is stabbing in the low back radiating and aching in the left lower extremity shooting at times rad iating can be constant severe patient reports her pain is a 10 on scale 10 is worse over the past week 9 on average 8 its least and is a 9 today. Patient reports no new motor or sensory deficits no new bowel or bladder incontinence. Physical Exam: VS: Blood pressure is 140/111 pulse 70 respirations 16 temperature 98.5 F height 6 foot weight is 289 pounds PE: PHYSICAL EXAMINATION: GENERAL: The patient is awake, alert, oriented, appropriate, very pleasant demeanor HEENT: Shows normocephalic, atraumatic. Extraocular movements are intact and symmetrical. Oral cavity: Mucous membranes moist and pink. Dentition is intact. NECK: Shows anterior throat supple without palpable lymphadenopathy noted. Swallow reflex symmetrical. CHEST: Shows normal on inspection. Breath sounds are clear bilaterally, no rales or rhonchi. HEART: Shows S1, S2 clear. No murmurs auscultated. ABDOMEN: Soft, nontender, nondistended, obese. No palpable organomegaly is noted. No rebound or guarding demonstrated. BACK: Shows spine grossly in the midline. Normal-appearing cervical lordotic curvature. There is slightly increased thoracic kyphosis, some minor flattening of the lumbar lordotic curvature. Lumbar paraspinous muscles show symmetrical on inspection, on palpation shows some moderate tenderness diffusely throughout the upper, middle and lower distribution of the paraspinous muscles without specific trigger points, without radiation of pain. The patient has good rotational motion of the lumbar spine, both laterally as well as extension and flexion with moderate tenderness with extension and right rotation but not with forward flexion or left lateral rotation. EXTREMITIES: Lower extremities show deep tendon reflexes 1+ in the patellar and tendo calcaneus tendons. Motor exam is 5 on a scale of 5 with right dorsiflexion, extension, quadriceps and hamstring flexion and 4/5 on the left. Peripheral pulses are 1+ posterior tibial. No peripheral edema is noted bilaterally. Lower extremities are warm and dry to touch, equal in color and appearance. SKIN: Shows warm and dry, good turgor. No edema. No sores, rashes or bruising throughout. Procedure: Procedure: Options discussed with the patient. Patient chart was viewed as her current medication regimen updated current view of systems updated today as well. We will proceed with a second in the series lumbar epidural steroid ejections today with fluoroscopic guidance. Risks were discussed including but not limited to: Bleeding, infection, possibility of epidural hematoma and subsequent neurological compromise, dural puncture, headaches, spinal cord and/or nerve damage, side effects of steroid medication, and poor results regarding pain control. Patient understands and wished to proceed. Patient return to clinic in approximate 2 weeks for follow-up, was counseled as return appointment activity level and side effects to be aware of. Medication Injected: Med Injected: Procedure is lumbar epidural steroid injection under local anesthetic using sterile prep and drape at the L5-S1 level using C-arm fluoroscopic guidance in both AP and lateral views medications injected is 120 mg Depo-Medrol + 10 mL preservative-free normal saline and 2 mL contrast- condition at discharge is stable patient tolerated procedure well had no complications. Condition at Discharge: Condition at Discharge: Condition at discharge is stable, patient tolerated the procedure well and had no complications. MAYITO PEREZ MD Dec 22, 2020 08:24
--- NOTE | 2020-12-22 08:24 | PDOC4 ---
PROCEDURE Procedure Patient was consented for lumbar epidural steroid injection. Risks were dis cussed including but not limited to: Bleeding, infection, possibility of epidural hematoma and subsequent neurological compromise, dural puncture, headaches, spinal cord and/or nerve damage, side effects of steroid medication, and poor results regarding pain control. Patient understands and wished to proceed. Procedure is lumbar epidural steroid injection under local anesthetic using sterile prep and drape at the L5-S1 level using C-arm fluoroscopic guidance in both AP and lateral views medications injected is 120 mg Depo-Medrol + 10 mL preservative-free normal saline and 2 mL contrast- condition at discharge is stable patient tolerated procedure well had no complications. MAYITO PEREZ MD Dec 22, 2020 08:24
== END | disposition home or self-care (01) ==
LOC: PNCL 07:41
PROVIDERS: ATTEND Anesthesiology
DX: M51.16 Intervertebral disc disorders with radiculopathy, lumbar region (principal); M47.26 Other spondylosis with radiculopathy, lumbar region; M79.18 Myalgia, other site; M17.0 Bilateral primary osteoarthritis of knee; I10 Essential (primary) hypertension; E78.00 Pure hypercholesterolemia, unspecified; K21.9 Gastro-esophageal reflux disease without esophagitis; E66.9 Obesity, unspecified; M19.90 Unspecified osteoarthritis, unspecified site; F41.9 Anxiety disorder, unspecified; F32.9 Major depressive disorder, single episode, unspecified; G47.30 Sleep apnea, unspecified; Z90.710 Acquired absence of both cervix and uterus; Z98.890 Other specified postprocedural states; Z79.899 Other long term (current) drug therapy; Z87.891 Personal history of nicotine dependence; Z88.0 Allergy status to penicillin; Z88.1 Allergy status to other antibiotic agents; Z88.2 Allergy status to sulfonamides; Z88.8 Allergy status to other drugs, medicaments and biological substances; Z72.89 Other problems related to lifestyle
CPT/HCPCS: 62323; J1030; J1040; Q9965

== ENCOUNTER → 2020-12-26 | Outpatient (CLI) | payer OTHER, MEDICAID ==
[2019-02-08 11:21] VITALS: BP 160/78
[~2020-12-26] MED LIST changes: -IOHEXOL 180 MG/ML 10 ML VIAL. ONE; -methylPREDNISolone ACETATE 40 MG/ML VIAL. ONE; -methylPREDNISolone ACETATE 80 MG/ML VIAL. ONE
--- NOTE | 2020-12-26 12:04 | RAD ---
MR LUMBAR SPINE WO [id number] Date: 12/26/2020 8:13 AM Indication: lumbar radiculopathy, left side affected Comparison: 09/12/2017. Technique: Multi-planar multi-weighted magnetic resonance imaging of the lumbar spine was performed w ithout intravenous contrast using the standard lumbar spine protocol. FINDINGS: The lumbar spine is normally aligned. No acute fracture. Mild multilevel degenerative disc desiccatio n and disc height loss. Bone marrow signal intensity is normal. The conus terminates at a normal level. No abnormal signal is seen within the visualized distal spina l cord. No clumping of intrathecal nerve roots. No soft tissue abnormality in the visualized abdomen or pelvis. T12-L1: No disc bulge. No facet arthropathy. No significant spinal stenosis or neural foraminal narro wing. L1-L2: No disc bulge. No facet arthropathy. No significant spinal stenosis or neural foraminal narrow ing. L2-L3: No disc bulge. No facet arthropathy. No significant spinal stenosis or neural foraminal narrow ing. L3-L4: No disc bulge. No facet arthropathy. No significant spinal stenosis or neural foraminal narrow ing. L4-L5: Disc bulge. Moderate facet arthropathy with facet joint edema. No significant spinal stenosis. Mild to moderate right and moderate left neural foraminal narrowing. L5-S1: Disc bulge. Mild facet arthropathy. No significant spinal stenosis. Mild right neural foramina l narrowing. IMPRESSION: Lumbar spondylosis, worst at L4-5. Electronically signed by: Adrian Will MD (12/26/2020 12:02 PM) [id number]
== END | disposition home or self-care (01) ==
LOC: MRI 08:11
PROVIDERS: ATTEND Anesthesiology
DX: M47.26 Other spondylosis with radiculopathy, lumbar region (principal); I10 Essential (primary) hypertension; E78.00 Pure hypercholesterolemia, unspecified; M19.90 Unspecified osteoarthritis, unspecified site; G47.30 Sleep apnea, unspecified; E66.9 Obesity, unspecified; F32.9 Major depressive disorder, single episode, unspecified; F41.9 Anxiety disorder, unspecified; Z90.710 Acquired absence of both cervix and uterus; Z98.890 Other specified postprocedural states; Z87.891 Personal history of nicotine dependence; Z79.899 Other long term (current) drug therapy; Z88.1 Allergy status to other antibiotic agents; Z88.2 Allergy status to sulfonamides; Z88.8 Allergy status to other drugs, medicaments and biological substances; Z72.89 Other problems related to lifestyle
CPT/HCPCS: 72148

== ENCOUNTER → 2021-01-01 | Outpatient (CLI) | payer OTHER, MEDICAID ==
[2019-02-08 11:21] VITALS: BP 160/78
[~2021-01-01] MED LIST changes: +BUPIVACAINE MPF 0.25% 10 ML VIAL. ONE; +IOHEXOL 180 MG/ML 10 ML VIAL. ONE; +methylPREDNISolone ACETATE 40 MG/ML VIAL. ONE; +methylPREDNISolone ACETATE 80 MG/ML VIAL. ONE
--- NOTE | 2021-01-01 08:23 | PDOC ---
Progress Note - Pain Clinic Date of Service: DOS: DATE: 01/01/21 TIME: 08:20 Diagnosis: Dx: Lumbar degenerative disc disease with lumbar and lumbosacral spondylosis Myofascial pain Bilateral knee joint pain with osteoarthritis History or Present Illness: HPI: 45-year-old female returns to follow-up status post lumbar epidural steroid injection 3 most recently December 22, 2020 patient did very well with the injections, with the lower extremity pain however her back pain is now her chief complaint and she has had increased activity since her last visit as well with more noticeable pain in the back greater on the right than the left but present bilaterally patient reports it radiates across the back but not into the lower extremity significantly patient describes as aching and sharp dull tight shooting across the back can be cramping and stabbing at times as well patient reports it can be constant severe mostly with standing patient reports is worse with extension of the lumbar spine better with forward flexion right left lateral rotation is tender equally right and left patient reports her pain is an 8 on scale 10 is worse over the past week 7 on average 6 at its least and is a 7 today. Patient reports no new motor or sensory deficits no new bowel or bladder incontinence she is sleeping better at night reports that her legs are not quite as uncomfortable as they were prior treated with epidural steroid injections. Physical Exam: VS: Blood pressure is 131/101 pulse 73 respirations 18 temperature 98.8 F height is 6 foot weight is 285 pounds PE: PHYSICAL EXAMINATION: GENERAL: The patient is awake, alert, oriented, appropriate, very pleasant demeanor HEENT: Shows normocephalic, atraumatic. Extraocular movements are intact and symmetrical. Oral cavity: Mucous membranes moist and pink. Dentition is intact. NECK: Shows anterior throat supple without palpable lymphadenopathy noted. Swallow reflex symmetrical. CHEST: Shows normal on inspection. Breath sounds are clear bilaterally. HEART: Shows S1, S2 clear. No murmurs auscultated. ABDOMEN: Soft, nontender, nondistended, obese. No palpable organomegaly is noted. No rebound or guarding demonstrated. BACK: Shows spine grossly in the midline. Normal-appearing cervical lordotic cu rvature. There is slightly increased thoracic kyphosis, some minor flattening of the lumbar lordotic curvature. Lumbar paraspinous muscles show symmetrical on inspection, on palpation shows some moderate tenderness diffusely throughout the upper, middle and lower distribution of the paraspinous muscles, but without specific trigger points, without radiation of pain. The patient has good rotational motion of the lumbar spine, both laterally as well as extension and flexion without significant difficulty. No tenderness over the spinous processes, sacrum or sacroiliac regions. EXTREMITIES: Lower extremities show deep tendon reflexes 1+ in the patellar and tendo calcaneus tendons. Motor exam is 5 on a scale of 5 with right dorsiflexion, extension, quadriceps and hamstring flexion and 4/5 on the left. Peripheral pulses are 1 posterior tibial. No peripheral edema is noted bilaterally. Lower extremities are warm and dry. SKIN: Shows warm and dry, good turgor. No edema. No sores, rashes or bruising throughout. Procedure: Procedure: Options discussed with patient. Patient chart reviews her current medication regimen updated current review of systems updated today as well. We will proceed with bilateral lumbar L4-5 and L5-S1 facet joint medial branch blocks with fluoroscopic guidance. Risks were discussed including but not limited to: Bleeding, infection, possibility of epidural hematoma and subsequent neurological compromise, dural puncture, headaches, spinal cord and/or nerve damage, side effects of steroid medication, and poor results regarding pain control. Patient understands and wished to proceed. Patient will return to the clinic in approximate 2 weeks for follow-up, was counseled as return appointment activity level and side effects to be aware of. Medication Injected: Med Injected: Under sterile prep and drape using C-arm fluoroscopic guidance AP and lateral and oblique views, bilateral L4-5 and L5-S1 facet joint injections were perfo rmed, medications injected: 120 mg Depo-Medrol +4 cc 0.25% bupivacaine +2 cc contrast. Condition at discharge stable patient tolerated the procedure well and no complications. Condition at Discharge: Condition at Discharge: Condition at discharge stable, patient tolerated procedure well had no complications. MAYITO PEREZ MD Jan 01, 2021 08:23
--- NOTE | 2021-01-01 08:24 | PDOC4 ---
PROCEDURE Procedure Patient was consented for bilateral L4-5 and L5-S1 facet joint medial branch blocks. Risks were discussed including but not limited to: Bleeding, infection, possibility of epidural hematoma and subsequent neurological compromise, dural puncture, headaches, spinal cord and/or nerve damage, side effects of steroid medication, and poor results regarding pain control. Patient understands and wished to proceed. Under sterile prep and drape using C-arm fluoroscopic guidance AP and lateral and oblique views, bilateral L4-5 and L5-S1 facet joint injections were performed, medications injected: 120 mg Depo-Medrol +4 cc 0.25% bupivacaine +2 cc contrast. Condition at discharge stable patient tolerated the procedure well and no complications. MAYITO PEREZ MD Jan 01, 2021 08:24
== END | disposition home or self-care (01) ==
LOC: PNCL 07:37
PROVIDERS: ATTEND Anesthesiology
DX: M51.36 Other intervertebral disc degeneration, lumbar region (principal); M47.817 Spondylosis without myelopathy or radiculopathy, lumbosacral region; M79.18 Myalgia, other site; M17.0 Bilateral primary osteoarthritis of knee; M54.5 Low back pain; I10 Essential (primary) hypertension; E78.00 Pure hypercholesterolemia, unspecified; G47.30 Sleep apnea, unspecified; E66.9 Obesity, unspecified; K21.9 Gastro-esophageal reflux disease without esophagitis; F41.9 Anxiety disorder, unspecified; Z90.710 Acquired absence of both cervix and uterus; F32.9 Major depressive disorder, single episode, unspecified; Z98.890 Other specified postprocedural states; Z79.899 Other long term (current) drug therapy; Z87.891 Personal history of nicotine dependence; Z72.89 Other problems related to lifestyle; Z88.0 Allergy status to penicillin; Z88.1 Allergy status to other antibiotic agents; Z88.2 Allergy status to sulfonamides; Z88.8 Allergy status to other drugs, medicaments and biological substances
CPT/HCPCS: 64493; 64494; J1030; J1040; J3490; Q9965

== ENCOUNTER → 2021-01-15 | Outpatient (CLI) | payer OTHER, MEDICAID ==
[2019-02-08 11:21] VITALS: BP 160/78
--- NOTE | 2021-01-15 10:18 | PDOC4 ---
PROCEDURE Procedure Patient was consented for left L4-5 and L5-S1 facet joint medial branch blocks. Risks were discussed including but not limited to: Bleeding, infection, possibility of epidural hematoma and subsequent neurological compromise, dural puncture, headaches, spinal cord and/or nerve damage, side effects of steroid medication, and poor results regarding pain control. Patient understands and wished to proceed. Under sterile prep and drape using C-arm fluoroscopic guidance AP and lateral and oblique views, left L4-5 and L5-S1 facet joint injections were performed, medications injected: 120 mg Depo-Medrol +2 cc 0.25% bupivacaine + 1cc contrast. Condition at discharge stable patient tolerated the procedure well and no complications. MAYITO PEREZ MD January 15, 2021 10:18
--- NOTE | 2021-01-15 10:18 | PDOC ---
Progress Note - Pain Clinic Date of Service: DOS: DATE: 01/15/21 TIME: 10:14 Diagnosis: Dx: Lumbar radiculopathy with lumbar degenerative disc disease, and lumbar and lumbosacral spondylosis Bilateral knee joint pain with osteoarthritis Myofascial pain History or Present Illness: HPI: 46-year-old female returns for follow-up status post bilateral lumbar facet injections L4-5 and L5-S1 and reports doing very well on the right side but left side still has significant pain she is about 50% improvement overall patient ports the left side still painful in the low back itself without specific radiation to the lower extremities patient reports is worse with walking standing changing position especially getting up from seated position awaken her from sleep occasionally but not most nights patient reports his pain is a 6 on scale 10 is worse on the left side over the past week 5 on average 4 to sleep and is a 5 today patient ports aching sharp dull radiating shooting at times across the back but mostly on the left side only her right side is doing much better patient reports no new motor or sensory deficits no bowel or bladder incontinence or other complaints. Physical Exam: VS: Blood pressure is 171/120, rechecked, 167/89, pulse 72 respirations 18 temp 98.1 F ,295 pounds PE: PHYSICAL EXAMINATION: GENERAL: The patient is awake, alert, oriented, appropriate, very pleasant demeanor HEENT: Shows normocephalic, atraumatic. Extraocular movements are intact and symmetrical. NECK: Shows anterior throat supple without palpable lymphadenopathy noted. Swallow reflex symmetrical. CHEST: Shows normal on inspection. Breath sounds are clear bilaterally. HEART: Shows S1, S2 clear. No murmurs auscultated. ABDOMEN: Soft, nontender, nondistended, obese. No palpable organomegaly is noted. BACK: Shows spine grossly in the midline. Normal-appearing cervical lordotic c urvature. There is slightly increased thoracic kyphosis, some minor flattening of the lumbar lordotic curvature. Lumbar paraspinous muscles show symmetrical on inspection, on palpation shows some moderate tenderness diffusely throughout the upper, middle and lower distribution of the paraspinous muscles, but without specific trigger points, without radiation of pain. The patient has good rotational motion of the lumbar spine, both laterally with some moderate pain with left lateral rotation greater than 10 degrees also with extension and axial loading greater than 10 degrees but not painful on the right side. Forward flexion is performed at 45 degrees without significant pain or difficulty. EXTREMITIES: Lower extremities show deep tendon reflexes 1+ in the patellar and tendo calcaneus tendons. Motor exam is 5 on a scale of 5 with right dorsiflexion, extension, quadriceps and hamstring flexion and 4/5 on the left. Peripheral pulses are 1+ posterior tibial. No peripheral edema is noted bilaterally. Lower extremities are warm and dry to touch, equal in color and appearance. SKIN: Shows warm and dry, good turgor. No edema. No sores, rashes or bruising throughout. Procedure: Procedure: Options were discussed with the patient. Patient chart reviews her current medication regimen updated current review of systems updated today as well. We will proceed with left side only L4-5 and L5-S1 facet medial branch injections with fluoroscopic guidance. Risks were discussed including but not limited to: Bleeding, infection, possibility of epidural hematoma and subsequent neurological compromise, dural puncture, headaches, spinal cord and/or nerve damage, side effects of steroid medication, and poor results regarding pain control. Patient understands and wished to proceed. Patient will return to clinic in approximate 2 weeks for follow-up, was counseled as to return appointment activity level and side effects to be aware of. Medication Injected: Med Injected: Under sterile prep and drape using C-arm fluoroscopic guidance AP and lateral and oblique views, left L4-5 and L5-S1 facet joint injections were performed, medications injected: 120 mg Depo-Medrol +2 cc 0.25% bupivacaine + 1cc contrast. Condition at discharge stable patient tolerated the procedure well and no complications. Condition at Discharge: Condition at Discharge: Condition at discharge stable, patient already procedure well and had no complications. MAYITO PEREZ MD January 15, 2021 10:18
== END | disposition home or self-care (01) ==
LOC: PNCL 09:40
PROVIDERS: ATTEND Anesthesiology
DX: M47.897 Other spondylosis, lumbosacral region (principal); M51.16 Intervertebral disc disorders with radiculopathy, lumbar region; M17.0 Bilateral primary osteoarthritis of knee; M79.18 Myalgia, other site; M54.5 Low back pain; I10 Essential (primary) hypertension; E78.00 Pure hypercholesterolemia, unspecified; K21.9 Gastro-esophageal reflux disease without esophagitis; E66.9 Obesity, unspecified; G47.30 Sleep apnea, unspecified; F41.9 Anxiety disorder, unspecified; F32.9 Major depressive disorder, single episode, unspecified; Z87.891 Personal history of nicotine dependence; Z79.899 Other long term (current) drug therapy; Z98.890 Other specified postprocedural states; Z88.0 Allergy status to penicillin; Z88.1 Allergy status to other antibiotic agents; Z88.2 Allergy status to sulfonamides; Z88.8 Allergy status to other drugs, medicaments and biological substances
CPT/HCPCS: 64493; 64494; J1030; J1040; J3490; Q9965

== ENCOUNTER → 2021-03-24 | Outpatient (CLI) | payer OTHER, MEDICAID ==
[2019-02-08 11:21] VITALS: BP 160/78
[~2021-03-24] MED LIST changes: -methylPREDNISolone ACETATE 40 MG/ML VIAL. ONE; -methylPREDNISolone ACETATE 80 MG/ML VIAL. ONE
--- NOTE | 2021-03-24 09:52 | PDOC ---
Progress Note - Pain Clinic Date of Service: DOS: DATE: 03/24/21 TIME: 09:49 Diagnosis: Dx: Lumbar degenerative disease with lumbar and lumbosacral spondylosis Myofascial pain Bilateral knee joint pain with osteoarthritis History or Present Illness: HPI: 46-year-old female here to follow-up status post left L4-5 and L5-S1 facet joint injections with good results by 35% improvement patient reports the pain began to return in the low back and left lower extremity mostly in the lateral calf as well as some pain in her knees patient reports new finding of weakness in the right leg and she feels she may be overcompensating because the left leg is painful but the last injections helped her pain significantly patient reports that both in the right leg weakness no new findings patient reports is aching sharp dull on and off in intensity worse with walking standing better with sitting or laying down patient also ports some pain in the back more on the left flank as well and was much worse last night but was better with stretching and repositioning herself while sitting patient reports her pain is a 3 on scale 10 is worst over the past week to an average 1 its least and is a 2 today. Patient reports she is sleeping fairly well at night generally does not awaken her from sleep no new motor or sensory deficits no new bowel or bladder incontinence. Physical Exam: VS: Blood pressure is 131/108 pulse 66 respirations 16 temperature 98.6 3 Fahrenheit height 6 foot weight is 315 pounds PE: PHYSICAL EXAMINATION: GENERAL: The patient is awake, alert, oriented, appropriate, very pleasant in demeanor HEENT: Shows normocephalic, atraumatic. Extraocular movements are intact and symmetrical. Oral cavity: Mucous membranes moist and pink. Dentition is intact. NECK: Shows anterior throat supple without palpable lymphadenopathy noted. Swallow reflex symmetrical. CHEST: Shows normal on inspection. Breath sounds are clear bilaterally, distant but no rales or. HEART: Shows S1, S2 clear. No murmurs auscultated. ABDOMEN: Soft, nontender, nondistended, obese. BACK: Shows spine grossly in the midline. Normal-appearing cervical lordotic curvature. There is slightly increased thoracic kyphosis, some minor flattening of the lumbar lordotic curvature. Lumbar paraspinous muscles show symmetrical on inspection, on palpation shows some moderate tenderness diffusely throughout the upper, middle and lower distribution of the paraspinous muscles, but without specific trigger points, without radiation of pain. The patient has good rotational motion of the lumbar spine, both laterally as well as extension and flexion without significant difficulty. No tenderness over the spinous processes, sacrum or sacroiliac regions. EXTREMITIES: Lower extremities show deep tendon reflexes 1+ in the patellar and tendo calcaneus tendons. Motor exam is 5 on a scale of 5 with right dorsiflexion, extension, quadriceps and hamstring flexion and 4/5 on the left. Peripheral pulses are 1+ posterior tibial. No peripheral edema is noted bilaterally. Lower extremities are warm and dry. SKIN: Shows warm and dry, good turgor. No edema. No sores, rashes or bruising throughout. Procedure: Procedure: Options discussed with the patient. Patient chart reviews her current medication regimen updated current review of systems updated today as well. We will proceed with left-sided L4-5 and L5-S1 medial branch facet joint injections today with fluoroscopic guidance. Risks were discussed including but not limi antonia to: Bleeding, infection, possibility of epidural hematoma and subsequent neurological compromise, dural puncture, headaches, spinal cord and/or nerve damage, side effects of steroid medication, and poor results regarding pain control. Patient understands and wished to proceed. Patient return to clinic in approximate 2 weeks for follow-up, was counseled as return appointment a ctivity level and side effects to be aware of. Medication Injected: Med Injected: Under sterile prep and drape using C-arm fluoroscopic guidance AP and lateral and oblique views, left L4-5 and L5-S1 facet joint MB's injections were performed, using quinke needles with stylette's x2,, medications injected: 80 mg Depo-Medrol +2 cc 0.25% bupivacaine +1 cc contrast. Condition at discharge stable patient tolerated the procedure well and no complications. Condition at Discharge: Condition at Discharge: Condition at discharge stable, patient already procedure well and had no complications. MAYITO PEREZ MD Mar 24, 2021 09:52
--- NOTE | 2021-03-24 09:53 | PDOC4 ---
Procedure Note: Procedure Note: Patient was consented for left-sided L4-5 and L5-S1 facet medial branch blocks with fluoroscopic guidance. Risks were discussed including but not limited to: Bleeding, infection, possibility of epidural hematoma and subsequent neurological compromise, dural puncture, headaches, spinal cord and/or nerve damage, side effects of steroid medication, and poor results regarding pain control. Patient understands and wished to proceed. Under sterile prep and drape using C-arm fluoroscopic guidance AP and lateral and oblique views, left L4-5 and L5-S1 facet joint MB's injections were performed, using quinke needles with stylette's x2,, medications injected: 80 mg Depo-Medrol +2 cc 0.25% bupivacaine +1 cc contrast. Condition at discharge stable patient tolerated the procedure well and no complications. MAYITO PEREZ MD Mar 24, 2021 09:53
== END | disposition home or self-care (01) ==
LOC: PNCL 09:15
PROVIDERS: ATTEND Anesthesiology
DX: M51.36 Other intervertebral disc degeneration, lumbar region (principal); M47.817 Spondylosis without myelopathy or radiculopathy, lumbosacral region; M79.18 Myalgia, other site; M17.0 Bilateral primary osteoarthritis of knee; I10 Essential (primary) hypertension; E78.00 Pure hypercholesterolemia, unspecified; G47.30 Sleep apnea, unspecified; K21.9 Gastro-esophageal reflux disease without esophagitis; E66.9 Obesity, unspecified; F41.9 Anxiety disorder, unspecified; F32.9 Major depressive disorder, single episode, unspecified; Z90.710 Acquired absence of both cervix and uterus; Z98.890 Other specified postprocedural states; Z88.0 Allergy status to penicillin; Z88.2 Allergy status to sulfonamides; Z88.8 Allergy status to other drugs, medicaments and biological substances; Z88.1 Allergy status to other antibiotic agents; Z87.891 Personal history of nicotine dependence; Z72.89 Other problems related to lifestyle
CPT/HCPCS: 64493; 64494; J3490; Q9965

== ENCOUNTER → 2021-04-02 | Outpatient (CLI) | payer OTHER, MEDICAID ==
[2019-02-08 11:21] VITALS: BP 160/78
[~2021-04-02] MED LIST changes: +methylPREDNISolone ACETATE 40 MG/ML VIAL. ONE; +methylPREDNISolone ACETATE 80 MG/ML VIAL. ONE
--- NOTE | 2021-04-02 10:35 | PDOC ---
Progress Note - Pain Clinic Date of Service: DOS: DATE: 04/02/21 TIME: 10:30 Diagnosis: Dx: Bilateral knee joint pain with primary osteoarthritis Lumbar radiculopathy lumbar degenerative disc disease and lumbar and lumbosacral spondylosis Myofascial pain History or Present Illness: HPI: 46-year-old female returns for follow-up status post lumbar facet injections bilaterally L4-5 and L5-S1. Patient reports 80% improvement chief complaint today however is knee pain bilaterally slightly worse on the right than left and present bilaterally with walking standing patient climbing up stairs putting all her weight on 1 leg and the other steps included patient reports is better with sitting or laying down with nonweightbearing. Patient reports it does not awaken her from sleep at night and other back is feeling much better she is able to sleep about 8 hours at night patient reports the pain in the knees is a 3 on scale 10 is worse over the past week to an average 1 its least is a 2 today patient reports aching dull tight again worse with weightbearing standing walking. Patient reports no new motor or sensory deficits no new bowel or bladder incontinence or other complaints. Physical Exam: VS: Blood pressure is 171/111 pulse 55 respirations 18 temperature 98.3 F height is 6 foot weight is 313 pounds PE: PHYSICAL EXAMINATION: GENERAL: The patient is awake, alert, oriented, appropriate, very pleasant in demeanor HEENT: Shows normocephalic, atraumatic. Extraocular movements are intact and symmetrical. Oral cavity: Mucous membranes moist and pink. Dentition is intact. NECK: Shows anterior throat supple without palpable lymphadenopathy noted. Swallow reflex symmetrical. CHEST: Shows normal on inspection. Breath sounds are clear bilaterally, distant but no rales or rhonchi. HEART: Shows S1, S2 clear. No murmurs auscultated. ABDOMEN: Soft, nontender, nondistended, obese. No palpable organomegaly is noted. BACK: Shows spine grossly in the midline. Normal-appearing cervical lordotic curvature. There is slightly increased thoracic kyphosis, some minor flattening of the lumbar lordotic curvature. Lumbar paraspinous muscles show symmetrical on inspection, on palpation shows some moderate tenderness diffusely throughout the upper, middle and lower distribution of the paraspinous muscles without specific trigger points, without radiation of pain. The patient has good rotational motion of the lumbar spine, both laterally as well as extension and flexion without significant difficulty. EXTREMITIES: Lower extremities show deep tendon reflexes 1 in the patellar and tendo calcaneus tendons. Motor exam is 5 on a scale of 5 with right dorsiflexion, extension, quadriceps and hamstring flexion and 4/5 on the left. Peripheral pulses are 1 posterior tibial. No peripheral edema is noted bilaterally. Lower extremities are warm and dry to touch, equal in color and appearance. SKIN: Shows warm and dry, good turgor. No edema. No sores, rashes or bruising throughout. Procedure: Procedure: Options discussed with patient. Patient chart reviews her current medication regimen updated current review of systems updated today as well. We will proceed with bilateral intra-articular knee joint injections today with fluo roscopic guidance. Risk were discussed including but not limited to bleeding infection possibility of intravascular ejection sequelae spread local acetic numbness side effects of steroid medication and poor results regarding pain control. Patient understands wishes to proceed. Patient will return to clinic in approximately 2 weeks for follow-up, was counseled as return appointment activity level and side effects to be aware of. Medication Injected: Med Injected: Under sterile prep and drape patient in supine position using C-arm fluoroscopic guidance patient's bilateral knees were sterilely prepped and draped in usual fashion. Using C-arm fluoroscopy the medial aspect of the knee joint was identified and visualized and using 1% lidocaine 25-gauge needle of the area of the skin overlying the medial knee compartment was anesthetized. Using a [employer] quickie needle with stylette the joint was entered under direct visualization without difficulty. Stylet was removed at this time 2 cc of contrast was then injected with good spread within the knee joint itself without washout or uptake. At this time solution containing 3 cc each knee of 0.25 bupivacaine for total of 6 cc and a total of 120 mg Depo-Medrol, 60 mg per knee, were then injected. [place] were withdrawn and sterile bandages were applied. Patient tolerated procedure well and had no complications. Condition at Discharge: Condition at Discharge: Condition at discharge stable, patient alert procedure well and had no complications. MAYITO PEREZ MD Apr 02, 2021 10:35
--- NOTE | 2021-04-02 10:36 | PDOC4 ---
Procedure Note: ICD 10 Code: ICD 10 Code: M 25.569 M 17.0 Procedure Note: Patient was consented for bilateral intra-articular knee joint injections with fluoroscopic guidance. Risk were discussed including but not limited to bleeding infection possibility of intravascular injection sequelae spread of local anesthetic numbness side effects of steroid medication exposure fluoroscopy and poor results regarding pain control. Under sterile prep and drape patient in supine position using C-arm fluoroscopic guidance patient's bilateral knees were sterilely prepped and draped in usual fashion. Using C-arm fluoroscopy the medial aspect of the knee joint was identified and visualized and using 1% lidocaine 25-gauge needle of the area of the skin overlying the medial knee compartment was anesthetized. Using a 22- gauge quickie needle with stylette the joint was entered under direct visualization without difficulty. Stylet was removed at this time 2 cc of contrast was then injected with good spread within the knee joint itself without washout or uptake. At this time solution containing 3 cc each knee of 0.25 bupivacaine for total of 6 cc and a total of 120 mg Depo-Medrol, 60 mg per knee, were then injected. [place] were withdrawn and sterile bandages were applied. Patient tolerated procedure well and had no complications. MAYITO PEREZ MD Apr 02, 2021 10:36
== END ==
LOC: PNCL 09:16
PROVIDERS: ATTEND Anesthesiology
DX: M17.12 Unilateral primary osteoarthritis, left knee (principal); M17.11 Unilateral primary osteoarthritis, right knee; I10 Essential (primary) hypertension; F41.9 Anxiety disorder, unspecified; F32.9 Major depressive disorder, single episode, unspecified; G47.33 Obstructive sleep apnea (adult) (pediatric); E78.00 Pure hypercholesterolemia, unspecified; M19.90 Unspecified osteoarthritis, unspecified site; M79.7 Fibromyalgia; E66.9 Obesity, unspecified; Z79.899 Other long term (current) drug therapy; F17.210 Nicotine dependence, cigarettes, uncomplicated; Z90.710 Acquired absence of both cervix and uterus; Z98.890 Other specified postprocedural states
CPT/HCPCS: 20610; 77002; J1030; J1040; J3490; Q9965

== ENCOUNTER → 2021-04-16 | Outpatient (CLI) | payer OTHER, MEDICAID ==
[2019-02-08 11:21] VITALS: BP 160/78
--- NOTE | 2021-04-16 10:28 | PDOC ---
Progress Note - Pain Clinic Date of Service: DOS: DATE: 04/16/21 TIME: 10:24 Diagnosis: Dx: Lumbar radiculopathy with lumbar degenerative disc disease Lumbar and lumbosacral spondylosis Myofascial pain Bilateral knee joint pain with osteoarthritis History or Present Illness: HPI: 46-year-old female returns for follow-up status post bilateral knee joint injection with very good results reporting about 90% improvement for a few weeks following the injection about 3 weeks now in total. Patient reports that the pain in her back is her main complaint however today with pain across the low back bilaterally right and left equal also some pain in the left lower extremity lower leg below the knee patient reports pain in the back is the most chief complaint today rates it as a 10 on scale 10 is worst 8 on average 7 its least is an 8 today patient was aching sharp tight dull shooting across the low back stabbing radiating across the back as well but is not rating to the lower extremities at this time but she has some secondary pain in the left lateral calf that is painful as well with walking patient reports she is beginning to have difficulty with standing up straight she is finding her self hunching over quite a bit when she is walking even at home reports better with laying down and does not disturb her sleep. Patient reports no bowel or bladder incontinence no motor deficits. Physical Exam: VS: Blood pressure is 119/71 pulse 63 respirations 18 temperature is 98.6 F height 6 foot weight is 317 pounds PE: PHYSICAL EXAMINATION: GENERAL: The patient is awake, alert, oriented, appropriate, very pleasant d emeanor HEENT: Shows normocephalic, atraumatic. Extraocular movements are intact and symmetrical. Oral cavity: Mucous membranes moist and pink. Dentition is intact. NECK: Shows anterior throat supple without palpable lymphadenopathy noted. Swallow reflex symmetrical. CHEST: Shows normal on inspection. Breath sounds are clear bilaterally, distant but no rales or rhonchi. HEART: Shows S1, S2 clear. No murmurs auscultated. ABDOMEN: Soft, nontender, nondistended, obese. No palpable organomegaly is noted. BACK: Shows spine grossly in the midline. Normal-appearing cervical lordotic curvature. There is slightly increased thoracic kyphosis, some minor flattening of the lumbar lordotic curvature. Lumbar paraspinous muscles show symmetrical on inspection, on palpation shows some moderate tenderness diffusely throughout the upper, middle and lower distribution of the paraspinous muscles without specific trigger points, without radiation of pain. The patient has good rotational motion of the lumbar spine, both laterally as well as extension and flexion with significant pain reported with right rotation motion greater than 10 degrees as well as left greater than 10 degrees extension and axial loading lumbar spine significantly tender with pain across the low back slightly worse on the right but present bilaterally forward flexion decreases the pain and no difficulty with 45 degrees forward flexion performed. No tenderness over the spinous processes, sacrum or sacroiliac regions. EXTREMITIES: Lower extremities show deep tendon reflexes 1+ in the patellar and tendo calcaneus tendons. Motor exam is 5 on a scale of 5 with right dorsiflexi on, extension, quadriceps and hamstring flexion and 4/5 on the left. Peripheral pulses are 1+ posterior tibial. No peripheral edema is noted bilaterally. Lower extremities are warm and dry. SKIN: Shows warm and dry, good turgor. No edema. No sores, rashes or bruising throughout. Procedure: Procedure: Options were discussed with the patient. Patient chart reviews her current medication regimen updated current view of systems updated today as well. We will proceed with bilateral L4-5 and L5-S1 medial branch facet blocks today with fluoroscopic guidance. Risks were discussed including but not limited to: Bleeding, infection, possibility of epidural hematoma and subsequent neurological compromise, dural puncture, headaches, spinal cord and/or nerve damage, side effects of steroid medication, and poor results regarding pain control. Patient understands and wished to proceed. Patient return to clinic in approximately 2 weeks for follow-up, was counseled as return appointment, activity level and side effects to be aware of. Medication Injected: Med Injected: Under sterile prep and drape using C-arm fluoroscopic guidance AP and lateral and oblique views, bilateral L4-5 and L5-S1 facet joint MB's injections were performed, using quinke needles with stylette's x4,, medications injected: 120 mg Depo-Medrol +4 cc 0.25% bupivacaine +2 cc contrast. Condition at discharge stable patient tolerated the procedure well and no complications. Condition at Discharge: Condition at Discharge: Condition at discharge stable, patient already procedure well and had no complications. MAYITO PEREZ MD Apr 16, 2021 10:28
--- NOTE | 2021-04-16 10:29 | PDOC4 ---
Procedure Note: ICD 10 Code: ICD 10 Code: M4 7.816 M 47.817 Procedure Note: Patient was consented for bilateral lumbar facet medial branch blocks L4-5 and L5-S1 levels with fluoroscopic guidance. Risks were discussed including but not limited to: Bleeding, infection, possibility of epidural hematoma and subsequent neurological compromise, dural puncture, headaches, spinal cord and/or nerve damage, side effects of steroid medication, and poor results regarding pain control. Patient understands and wished to proceed. Under sterile prep and drape using C-arm fluoroscopic guidance AP and lateral and oblique views, bilateral L4-5 and L5-S1 facet joint MB's injections were performed, using quinke needles with stylette's x4,, medications injected: 120 mg Depo-Medrol +4 cc 0.25% bupivacaine +2 cc contrast. Condition at discharge stable patient tolerated the procedure well and no complications. MAYITO PEREZ MD Apr 16, 2021 10:29
== END ==
LOC: PNCL 09:51
PROVIDERS: ATTEND Anesthesiology
DX: M51.17 Intervertebral disc disorders with radiculopathy, lumbosacral region (principal); M47.817 Spondylosis without myelopathy or radiculopathy, lumbosacral region; I10 Essential (primary) hypertension; E78.00 Pure hypercholesterolemia, unspecified; F41.9 Anxiety disorder, unspecified; F32.9 Major depressive disorder, single episode, unspecified; G47.33 Obstructive sleep apnea (adult) (pediatric); K21.9 Gastro-esophageal reflux disease without esophagitis; M79.7 Fibromyalgia; E66.9 Obesity, unspecified; M19.90 Unspecified osteoarthritis, unspecified site; Z86.010 Personal history of colon polyps; F17.210 Nicotine dependence, cigarettes, uncomplicated; Z79.899 Other long term (current) drug therapy; Z90.710 Acquired absence of both cervix and uterus; Z98.890 Other specified postprocedural states
CPT/HCPCS: 64493; 64494; J1030; J1040; J3490; Q9965

== ENCOUNTER → 2021-04-23 | Outpatient (CLI) | payer OTHER, MEDICAID ==
[2019-02-08 11:21] VITALS: BP 160/78
[~2021-04-23] MED LIST changes: -BUPIVACAINE MPF 0.25% 10 ML VIAL. ONE; +HYLAN G-F 20 48 MG/6 ML SYRINGE INT ART ONE; -methylPREDNISolone ACETATE 40 MG/ML VIAL. ONE; -methylPREDNISolone ACETATE 80 MG/ML VIAL. ONE
--- NOTE | 2021-04-23 12:02 | PDOC ---
Progress Note - Pain Clinic Date of Service: DOS: DATE: 04/23/21 TIME: 11:56 Diagnosis: Dx: Lumbar radiculopathy with lumbar degenerative disease and lumbar and lumbosacral spondylosis Myofascial pain Bilateral knee joint pain with osteoarthritis History or Present Illness: HPI: 46-year-old female returns for follow-up status post bilateral L4-5 L5-S1 facet medial branch blocks patient reports about 60% improvement but only for about a week or so the pain is returned in the low back and she is having new finding of weakness in the left lower extremity and she has fallen earlier this week on her right knee secondary to pain in the left leg and weakness in the left leg. Patient reports the pain is increasing is a 9 on scale 10 is worse over the past week 8 on average 7 at its least and 8 today. Patient scribes aching sharp and dull in the back and the left leg also shooting pain radiating pain her chief complaint today however is bilateral knee joint pain and we had discussed potential Synvisc injection and she would like to proceed with this as she has done well with these in the past. Patient reports better with sitting or laying down does not awaken her from sleep much worse in the knees with walking and standing putting all of her weight on 1 leg such as climbing a stair or step. Patient is using a walker and she has it with her today as well she feels unstable likely to be radicular left leg. Patient did have an MRI scan in December of this year and we reviewed that with her today as well showing some disc bulging at L4-5 and L5-S1. Patient is requesting a neurosurgical evaluation regarding her low back as she fears that she may need surgery in light of the recent weakness associated with the pain in her left leg. Physical Exam: VS: Blood pressure is 1 6 pulse 94 respirations 18 temperature 98.1 F weight is 321 pounds PE: PHYSICAL EXAMINATION: GENERAL: The patient is awake, alert, oriented, appropriate, very pleasant in demeanor HEENT: Shows normocephalic, atraumatic. Extraocular movements are intact and symmetrical. Oral cavity: Mucous membranes moist and pink. Dentition is intact. NECK: Shows anterior throat supple without palpable lymphadenopathy noted. Swallow reflex symmetrical. CHEST: Shows normal on inspection. Breath sounds are clear bilaterally, no rales rhonchi or wheeze auscultated. HEART: Shows S1, S2 clear. No murmurs auscultated. ABDOMEN: Soft, nontender, nondistended, obese. No palpable organomegaly is noted. BACK: Shows spine grossly in the midline. Normal-appearing cervical lordotic curvature. There is slightly increased thoracic kyphosis, some minor flattening of the lumbar lordotic curvature. Lumbar paraspinous muscles show symmetrical on inspection, on palpation shows some moderate tenderness diffusely throughout the upper, middle and lower distribution of the paraspinous muscles, but without specific trigger points, without radiation of pain. The patient has good rotational motion of the lumbar spine, both laterally as well as extension and flexion with moderate tenderness with extension but not with forward flexion, right and left lateral rotation greater than 10 degrees is moderately tender as well. No tenderness over the spinous processes, sacrum or sacroiliac regions. EXTREMITIES: Lower extremities show deep tendon reflexes 1+ in the patellar and tendo calcaneus tendons. Motor exam is 5 on a scale of 5 with right dorsiflexion, extension, quadriceps and hamstring flexion and 4/5 on the left. Peripheral pulses are 1+ posterior tibial. No peripheral edema is noted bilaterally. Lower extremities are warm and dry to touch, equal in color and appearance. Patient's knees show good range of motion without obvious ratcheting or crepitus bilaterally. Moderate tenderness with palpation of the medial collateral ligament greater than the lateral on the right and left knees without radiation. SKIN: Shows warm and dry, good turgor. No edema. No sores, rashes or bruising throughout. Procedure: Procedure: Options were discussed with the patient. Patient's old chart was reviewed as her current medication regimen updated current review of systems updated today as well. We will proceed with bilateral intra-articular knee joint Synvisc 1 injections with fluoroscopic guidance. Risk were discussed including but not limited to bleeding infection possibility of intravascular injection sequelae s pread local anesthetic and numbness, and poor results regarding pain control. Patient understands wished to proceed. Patient will return to clinic in approximately 2 weeks for follow-up, was counseled as to return appointment activity. Per patient's request we will make arrangements for neurosurgical evaluation, regarding increasing left radiculopathy and weakness in the left leg with ambulation. Medication Injected: Med Injected: Under sterile prep and drape patient in supine position using C-arm fluoroscopic guidance patient's bilateral knees were sterilely prepped and draped in usual fashion. Using C-arm fluoroscopy the medial aspect of the knee joint was identified and visualized and using 1% lidocaine 25-gauge needle of the area of the skin overlying the medial knee compartment was anesthetized. Using a 22- gauge quickie needle with stylette the joint was entered under direct visualization without difficulty. Stylet was removed at this time 2 cc of contrast was then injected with good spread within the knee joint itself without washout or uptake. At this time each knee received Synvisc 1, 6 cc each for a total of 12 cc. [place] were withdrawn and sterile bandages were applied. Patient tolerated procedure well and had no complications. Condition at Discharge: Condition at Discharge: Condition at discharge stable, patient already the procedure well had no complications. MAYITO PEREZ MD Apr 23, 2021 12:02
--- NOTE | 2021-04-23 12:03 | PDOC4 ---
Procedure Note: ICD 10 Code: ICD 10 Code: M2 5.561 M2 5.562 M1 7.11 M1 7.12 Procedure Note: Patient was consented for bilateral intra-articular knee joint Synvisc 1 injections with fluoroscopic guidance. Risk were discussed including not limited bleeding infection possibility of intravascular injection sequelae, spr ead local anesthetic and numbness, exposure to fluoroscopy, and poor results regarding pain control. Under sterile prep and drape patient in supine position using C-arm fluoroscopic guidance patient's bilateral knees were sterilely prepped and draped in usual fashion. Using C-arm fluoroscopy the medial aspect of the knee joint was identified and visualized and using 1% lidocaine 25-gauge needle of the area of the skin overlying the medial knee compartment was anesthetized. Using a 22- gauge quickie needle with stylette the joint was entered under direct visualization without difficulty. Stylet was removed at this time 2 cc of cont rast was then injected with good spread within the knee joint itself without washout or uptake. At this time each knee received Synvisc 1, 6 cc each for a total of 12 cc. [place] were withdrawn and sterile bandages were applied. Patient tolerated procedure well and had no complications. MAYITO PEREZ MD Apr 23, 2021 12:03
== END ==
LOC: PNCL 11:17
PROVIDERS: ATTEND Anesthesiology
DX: M17.11 Unilateral primary osteoarthritis, right knee (principal); M17.12 Unilateral primary osteoarthritis, left knee; M25.562 Pain in left knee; M25.561 Pain in right knee; I10 Essential (primary) hypertension; E78.00 Pure hypercholesterolemia, unspecified; F41.9 Anxiety disorder, unspecified; F32.9 Major depressive disorder, single episode, unspecified; Z90.710 Acquired absence of both cervix and uterus; Z98.890 Other specified postprocedural states
CPT/HCPCS: 20610; 77002; Q9965; J7325

== ENCOUNTER → 2021-05-12 | Outpatient (CLI) | payer OTHER, MEDICAID ==
[2019-02-08 11:21] VITALS: BP 160/78
[~2021-05-12] MED LIST changes: -HYLAN G-F 20 48 MG/6 ML SYRINGE INT ART ONE
--- NOTE | 2021-05-12 11:03 | PDOC ---
Progress Note - Pain Clinic Date of Service: DOS: DATE: 05/12/21 TIME: 10:59 Diagnosis: Dx: Lumbar radiculopathy with lumbar degenerative disc disease and lumbar and lumbosacral spondylosis Myofascial pain Bilateral knee joint pain with osteoarthritis History or Present Illness: HPI: 46-year-old female returns for follow-up status post bilateral knee joint injections with Synvisc 1. Patient reports doing much better both knees about 80% improvement her chief complaint today however is low back pain with pain in the left lower extremity posterior gluteus posterior thigh posterior calf posterior lateral calf into the foot on the left side worse with walking standing changing positions. Patient reports same 10 on scale 10 is worse over the past week 8 on average 6 its least is a 6 today describes aching and sharp dull shooting in the leg stabbing in the back severe and radiating worse with ambulation patient is using a walker and has that with her today as well. Patient reports is much better with sitting or laying down generally does not awaken her from sleep patient reports no bowel or bladder incontinence Physical Exam: VS: Blood pressure is 137/91 pulse 61 respirations 18 temperature 90.1 F height is 6 foot weight is 327 pounds. PE: PHYSICAL EXAMINATION: GENERAL: The patient is awake, alert, oriented, appropriate, very pleasant in demeanor HEENT: Shows normocephalic, atraumatic. Extraocular movements are intact and symmetrical. Oral cavity: Mucous membranes moist and pink. Dentition is intact. NECK: Shows anterior throat supple without palpable lymphadenopathy noted. Swallow reflex symmetrical. CHEST: Shows normal on inspection. Breath sounds are clear bilaterally, distant no rales or rhonchi. HEART: Shows S1, S2 clear. No murmurs auscultated. ABDOMEN: Soft, nontender, nondistended, obese. No palpable organomegaly is noted. BACK: Shows spine grossly in the midline. Normal-appearing cervical lordotic curvature. There is slightly increased thoracic kyphosis, some minor flattening of the lumbar lordotic curvature. Lumbar paraspinous muscles show symmetrical on inspection, on palpation shows some moderate tenderness diffusely throughout the upper, middle and lower distribution of the paraspinous muscles, without specific trigger points, without radiation of pain. The patient has good rotational motion of the lumbar spine, both laterally as well as extension and flexion without significant difficulty. EXTREMITIES: Lower extremities show deep tendon reflexes 1 in the patellar and tendo calcaneus tendons. Motor exam is 5 on a scale of 5 with right dorsiflexion, extension, quadriceps and hamstring flexion and 4/5 on the left. Peripheral pulses are 1+ posterior tibial. No peripheral edema is noted bilaterally. Lower extremities are warm and dry to touch, equal in color and appearance. SKIN: Shows warm and dry, good turgor. No edema. No sores, rashes or bruising throughout. Procedure: Procedure: Options discussed with patient. Patient chart was reviewed as her current medication regimen updated current review of systems updated today as well. We will proceed with a lumbar epidural steroid injection today with fluoroscopic guidance. Risks were discussed including but not limited to: Bleeding, infection, possibility of epidural hematoma and subsequent neurological compromise, dural puncture, headaches, spinal cord and/or nerve damage, side effects of steroid medication, and poor results regarding pain control. Patient understands and wished to proceed. Patient return to the clinic in approximate 2 weeks for follow-up, was counseled as to return appointment, activity level, and side effects to be aware of. Medication Injected: Med Injected: Procedure is lumbar epidural steroid injection under local anesthetic using sterile prep and drape at the L5-S1 level using C-arm fluoroscopic guidance in both AP and lateral views medications injected is 120 mg Depo-Medrol +10mL preservative-free normal saline and 2 mL contrast- condition at discharge is stable patient tolerated procedure well had no complications. Condition at Discharge: Condition at Discharge: Condition at discharge is stable, patient tolerated procedure well and had no complications. MAYITO PEREZ MD May 12, 2021 11:03
--- NOTE | 2021-05-12 11:04 | PDOC4 ---
Procedure Note: ICD 10 Code: ICD 10 Code: M54.17 M51.87 M4 7.816 M4 7.817 Procedure Note: Patient was consented for lumbar epidural steroid injection with fluoroscopic guidance. Risks were discussed including but not limited to: Bleeding, infection, possibility of epidural hematoma and subsequent neurological compro mise, dural puncture, headaches, spinal cord and/or nerve damage, side effects of steroid medication, and poor results regarding pain control. Patient understands and wished to proceed. Procedure is lumbar epidural steroid injection under local anesthetic using sterile prep and drape at the L5-S1 level using C-arm fluoroscopic guidance in both AP and lateral views medications injected is 120 mg Depo-Medrol +10mL preservative-free normal saline and 2 mL contrast- condition at discharge is stable patient tolerated procedure well had no complications. MAYITO PEREZ MD May 12, 2021 11:04
== END | disposition home or self-care (01) ==
LOC: PNCL 10:02
PROVIDERS: ATTEND Anesthesiology
DX: M51.16 Intervertebral disc disorders with radiculopathy, lumbar region (principal); M47.27 Other spondylosis with radiculopathy, lumbosacral region; M79.18 Myalgia, other site; M17.0 Bilateral primary osteoarthritis of knee; I10 Essential (primary) hypertension; E78.00 Pure hypercholesterolemia, unspecified; G47.30 Sleep apnea, unspecified; K21.9 Gastro-esophageal reflux disease without esophagitis; E66.9 Obesity, unspecified; F41.9 Anxiety disorder, unspecified; F32.9 Major depressive disorder, single episode, unspecified; Z90.710 Acquired absence of both cervix and uterus; Z98.890 Other specified postprocedural states; Z79.899 Other long term (current) drug therapy; Z87.891 Personal history of nicotine dependence; Z88.0 Allergy status to penicillin; Z88.1 Allergy status to other antibiotic agents; Z88.2 Allergy status to sulfonamides; Z88.8 Allergy status to other drugs, medicaments and biological substances; Z72.89 Other problems related to lifestyle
CPT/HCPCS: 62323; Q9965

== ENCOUNTER → 2021-07-24 | Outpatient (CLI) | payer OTHER, MEDICAID ==
[2019-02-08 11:21] VITALS: BP 160/78
[~2021-07-24] MED LIST changes: +BUPIVACAINE MPF 0.25% 10 ML VIAL. ONE; -DULO60CA6 PO; +DULO60CA7 PO; -LISI1TAB20 PO; +LISI1TAB39 PO; +TIZA-75 PO; -TIZA4TAB2 PO; +methylPREDNISolone ACETATE 40 MG/ML VIAL. ONE; +methylPREDNISolone ACETATE 80 MG/ML VIAL. ONE
--- NOTE | 2021-07-24 13:00 | PDOC ---
Progress Note - Pain Clinic Date of Service: DOS: DATE: 07/24/21 TIME: 12:57 Diagnosis: Dx: Lumbar and lumbosacral spondylosis Lumbar radiculopathy with lumbar degenerative disease Myofascial pain Bilateral knee joint pain with osteoarthritis History or Present Illness: HPI: 46-year-old female returns for follow-up status post lumbar epidural steroid injection x1 on May 12. Patient reports she did very well with about 50% improvement in the pain in the right lower extremity her main complaint however is pain in the back itself and into the posterior left gluteus patient reports is mainly just across the low back left worse than right but definitely present bilaterally patient reports is a 9 on scale 10 is worse over the past week 8 on average 8 its least is 8 today. Patient was radiating constant across the low back stabbing unbearable at times aching sharp dull and tight and shooting across the back as well patient reports mostly a dull aching pain worse with walking standing changing positions sitting for more than 20 to 30 minutes and changing positions patient reports awakening from sleep very rarely feels much better when she is laying down patient had facet medial branch blocks in April with about 80% improvement lasting several days after the injections. Patient reports that her leg now has been much better after the lumbar epidural steroid injection he received on her last visit but the back is painful specially on the left side. Physical Exam: VS: Blood pressure is 141/101 pulse 53 respirations 18 temperature 98.1 F height is 5 foot 10 inches weight is 235 pounds PE: PHYSICAL EXAMINATION: GENERAL: The patient is awake, alert, oriented, appropriate, very pleasant in demeanor HEENT: Shows normocephalic, atraumatic. Extraocular movements are intact and symmetrical. Oral cavity: Mucous membranes moist and pink. Dentition is inta ct. NECK: Shows anterior throat supple without palpable lymphadenopathy noted. Swallow reflex symmetrical. CHEST: Shows normal on inspection. Breath sounds are clear bilaterally distant but clear. HEART: Shows S1, S2 clear. No murmurs auscultated. ABDOMEN: Soft, nontender, nondistended, obese. No palpable organomegaly is noted. BACK: Shows spine grossly in the midline. Normal-appearing cervical lordotic curvature. There is slightly increased thoracic kyphosis, some minor flattening of the lumbar lordotic curvature. Lumbar paraspinous muscles show symmetrical on inspection, on palpation shows some moderate tenderness diffusely throughout the upper, middle and lower distribution of the paraspinous muscles without specific trigger points, without radiation of pain. The patient has good rotational motion of the lumbar spine, both laterally as well as extension and flexion with significant tenderness with extension and axial loading of the lumbar spine but with forward flexion 45 degrees, right and left lateral rotation greater than 10 degrees with significant pain more to the left than the right but without radiation. EXTREMITIES: Lower extremities show deep tendon reflexes 1 in the patellar and tendo calcaneus tendons. Motor exam is 5 on a scale of 5 with right dorsiflexion, extension, quadriceps and hamstring flexion and 4/5 on the left. Peripheral pulses are 1+ posterior tibial. No peripheral edema is noted bilaterally. Lower extremities are warm and dry to touch, equal in color and appearance. SKIN: Shows warm and dry, good turgor. No edema. No sores, rashes or bruising throughout. Procedure: Procedure: Options discussed with patient. Patient chart reviews her current medication regimen updated review of systems updated today as well. We will proceed with a bilateral L4-5 and L5-S1 facet medial branch blocks today with fluoroscopic guidance. Risks were discussed including but not limited to: Bleeding, infection, possibility of epidural hematoma and subsequent neurological compromise, dural puncture, headaches, spinal cord and/or nerve damage, side effects of steroid medication, and poor results regarding pain control. Patient understands and wished to proceed. Patient will return to clinic in approximate 2 weeks for follow-up, was counseled as return appointment, activity level, and side effect to be aware of. Medication Injected: Med Injected: Under sterile prep and drape using C-arm fluoroscopic guidance AP and lateral and oblique views, bilateral L4-5 and L5-S1 facet joint MB's injections were performed, using quinke needles with stylette's x4,, medications injected: 120 mg Depo-Medrol +4 cc 0.25% bupivacaine +2 cc contrast. Condition at discharge stable patient tolerated the procedure well and no complications. Condition at Discharge: Condition at Discharge: Condition at discharge stable, patient tolerated procedure well and had no complications. MAYITO PEREZ MD Jul 24, 2021 13:00
--- NOTE | 2021-07-24 13:01 | PDOC4 ---
Procedure Note: ICD 10 Code: ICD 10 Code: M4 7.816 M4 7.87 Procedure Note: Patient was consented for bilateral L4-5 and L5-S1 facet medial branch blocks with fluoroscopic guidance risks were discussed including but not limited to: Bleeding, infection, possibility of epidural hematoma and subsequent neurological compromise, dural puncture, headaches, spinal cord and/or nerve damage, side effects of steroid medication, and poor results regarding pain control. Patient understands and wished to proceed. Under sterile prep and drape using C-arm fluoroscopic guidance AP and lateral and oblique views, bilateral L4-5 and L5-S1 facet joint MB's injections were performed, using quinke needles with stylette's x4,, medications injected: 120 mg Depo-Medrol +4 cc 0.25% bupivacaine +2 cc contrast. Condition at discharge stable patient tolerated the procedure well and no complications. MAYITO PEREZ MD Jul 24, 2021 13:00
== END | disposition home or self-care (01) ==
LOC: PNCL 12:12
PROVIDERS: ATTEND Anesthesiology
DX: M47.816 Spondylosis without myelopathy or radiculopathy, lumbar region (principal); M47.817 Spondylosis without myelopathy or radiculopathy, lumbosacral region; M51.16 Intervertebral disc disorders with radiculopathy, lumbar region; M25.561 Pain in right knee; M25.562 Pain in left knee; M17.0 Bilateral primary osteoarthritis of knee; M79.18 Myalgia, other site; I10 Essential (primary) hypertension; E78.00 Pure hypercholesterolemia, unspecified; G47.30 Sleep apnea, unspecified; E66.9 Obesity, unspecified; K21.9 Gastro-esophageal reflux disease without esophagitis; F41.9 Anxiety disorder, unspecified; F32.9 Major depressive disorder, single episode, unspecified; Z90.710 Acquired absence of both cervix and uterus; Z98.890 Other specified postprocedural states; Z79.899 Other long term (current) drug therapy; Z87.891 Personal history of nicotine dependence; Z72.89 Other problems related to lifestyle; Z88.0 Allergy status to penicillin; Z88.1 Allergy status to other antibiotic agents; Z88.8 Allergy status to other drugs, medicaments and biological substances; Z88.2 Allergy status to sulfonamides
CPT/HCPCS: 64493; 64494; J1030; J1040; J3490; Q9965

== ENCOUNTER → 2021-08-07 | Outpatient (CLI) | payer OTHER, MEDICAID ==
[2019-02-08 11:21] VITALS: BP 160/78
[~2021-08-07] MED LIST changes: -BUPIVACAINE MPF 0.25% 10 ML VIAL. ONE; +BUPIVACAINE MPF 0.25% 30 ML VIAL. ONE
--- NOTE | 2021-08-07 12:56 | PDOC ---
Progress Note - Pain Clinic Date of Service: DOS: DATE: 08/07/21 TIME: 12:53 Diagnosis: Dx: Lumbar radiculopathy with lumbar degenerative disease and lumbar and lumbosacral spondylosis Myofascial pain Bilateral knee joint pain with osteoarthritis History or Present Illness: HPI: 46-year-old female returns for follow-up status post bilateral L4-5 and L5-S1 facet medial branch blocks patient reports very well about 60% improvement still helping but her chief complaint today is bilateral knee joint pain patient with significant pain more on the right than the left and present bilaterally worse with walking standing put all of her weight on 1 leg especially climbing stairs or steps or climbing up a curb patient reports is a 5 on a scale of 10 at most times worst for an average and 3 at its least is a 4 today patient reports aching cramping sharp and can be severe and unbearable with standing patient rep orts no loss of motor function some moderate radiation of pain in the left side on the lateral aspect of the calf but more pain on the right weightbearing walking. Patient reports no new bowel or bladder incontinence no loss of motor function with significant fatigability secondary to the pain. Physical Exam: VS: Blood pressure is 142/97 pulse 101 respirations 18 temperature 98.6 F height is 5 feet 10 inches weight 326 pounds PE: PHYSICAL EXAMINATION: GENERAL: The patient is awake, alert, oriented, appropriate, very pleasant in demeanor HEENT: Shows normocephalic, atraumatic. Extraocular movements are intact and symmetrical. Oral cavity: Mucous membranes moist and pink. Dentition is intact. NECK: Shows anterior throat supple without palpable lymphadenopathy noted. Swallow reflex symmetrical. CHEST: Shows normal on inspection. Breath sounds are clear bilaterally, distant but no rales or rhonchi. HEART: Shows S1, S2 clear. No murmurs auscultated. ABDOMEN: Soft, nontender, nondistended, obese. No palpable organomegaly is noted. BACK: Shows spine grossly in the midline. Normal-appearing cervical lordotic curvature. There is slightly increased thoracic kyphosis, some minor flattening of the lumbar lordotic curvature. Lumbar paraspinous muscles show symmetrical on inspection, on palpation shows some moderate tenderness diffusely throughout the upper, middle and lower distribution of the paraspinous muscles without specific trigger points, without radiation of pain. The patient has good rotational motion of the lumbar spine, both laterally as well as extension and flexion with some moderate pain with right and left lateral rotation greater than 10 degrees as well as extension and axial loading but only moderately and forward flexion 45 degrees is performed without difficulty. No tenderness over the spinous processes, sacrum or sacroiliac regions. EXTREMITIES: Lower extremities show deep tendon reflexes 1 in the patellar and tendo calcaneus tendons. Motor exam is 5 on a scale of 5 with right dorsiflexion, extension, quadriceps and hamstring flexion and 4/5 on the left. Peripheral pulses are 1+ posterior tibial. No peripheral edema is noted bilaterally. Patient's knee shows moderate tenderness with palpation over the medial collateral ligament as well as the inferior medial aspect of the patella but without significant radiation patient has good range of motion without ratcheting or crepitus noted bilaterally. Lower extremities are warm and dry. SKIN: Shows warm and dry, good turgor. No edema. No sores, rashes or bruising throughout. Procedure: Procedure: Options discussed with patient. Patient chart was reviewed as her current medication regimen updated current review of systems updated today as well. We will proceed with bilateral intra-articular knee joint injections today with fluoroscopic guidance. Risks discussed including but not limited to bleeding infection possibility of spread of local anesthetic and numbness side effects steroid medication exposure to fluoroscopy and poor results regarding pain control. Patient understands wished to proceed. Patient will return to clinic in approximately 4 weeks for follow-up, was counseled as to return appointment, activity level, and side effect to be aware of. Medication Injected: Med Injected: Under sterile prep and drape patient in supine position using C-arm fluoroscopic guidance patient's bilateral knees were sterilely prepped and draped in usual fashion. Using C-arm fluoroscopy the medial aspect of the knee joint was identified and visualized and using 1% lidocaine 25-gauge needle of the area of the skin overlying the medial knee compartment was anesthetized. Using a 22-gauge quickie needle with stylette the joint was entered under direct visualization without difficulty. Stylet was removed at this time 2 cc of contrast was then injected with good spread within the knee joint itself without washout or uptake. At this time solution containing 3 cc each knee of 0.25 bupivacaine for total of 6 cc and a total of 120 mg Depo-Medrol, 60 mg per knee, were then injected. [place] were withdrawn and sterile bandages were applied. Patient tolerated procedure well and had no complications. Condition at Discharge: Condition at Discharge: Condition at discharge stable, patient tolerated the procedure well and had no complications. MAYITO PEREZ MD Aug 07, 2021 12:56
--- NOTE | 2021-08-07 12:57 | PDOC4 ---
Procedure Note: ICD 10 Code: ICD 10 Code: M2 5.563 M1 7.13 Procedure Note: Patient was consented for bilateral intra-articular knee joint injection with fluoroscopic guidance. Risks were discussed including but not limited to bleeding infection possibility of intravascular injection and sequelae, spread of local anesthetic and numbness side effects steroid medications post arthroscopy and portals for pain control. Patient understands wished to proceed. Under sterile prep and drape patient in supine position using C-arm fluoroscopic guidance patient's bilateral knees were sterilely prepped and draped in usual fashion. Using C-arm fluoroscopy the medial aspect of the knee joint was identified and visualized and using 1% lidocaine 25-gauge needle of the area of the skin overlying the medial knee compartment was anesthetized. Using a 22- gauge quickie needle with stylette the joint was entered under direct visualization without difficulty. Stylet was removed at this time 2 cc of contrast was then injected with good spread within the knee joint itself without washout or uptake. At this time solution containing 3 cc each knee of 0.25 bupivacaine for total of 6 cc and a total of 120 mg Depo-Medrol, 60 mg per knee, were then injected. [place] were withdrawn and sterile bandages were applied. Patient tolerated procedure well and had no complications. MAYITO PEREZ MD Aug 07, 2021 12:57
== END | disposition home or self-care (01) ==
LOC: PNCL 12:24
PROVIDERS: ATTEND Anesthesiology
DX: M17.0 Bilateral primary osteoarthritis of knee (principal); M51.16 Intervertebral disc disorders with radiculopathy, lumbar region; M47.27 Other spondylosis with radiculopathy, lumbosacral region; M79.18 Myalgia, other site; I10 Essential (primary) hypertension; E78.00 Pure hypercholesterolemia, unspecified; G47.30 Sleep apnea, unspecified; K21.9 Gastro-esophageal reflux disease without esophagitis; F41.9 Anxiety disorder, unspecified; F32.9 Major depressive disorder, single episode, unspecified; E66.9 Obesity, unspecified; Z90.710 Acquired absence of both cervix and uterus; Z98.890 Other specified postprocedural states; Z87.891 Personal history of nicotine dependence; Z72.89 Other problems related to lifestyle; Z79.899 Other long term (current) drug therapy; Z88.0 Allergy status to penicillin; Z88.1 Allergy status to other antibiotic agents; Z88.2 Allergy status to sulfonamides; Z88.8 Allergy status to other drugs, medicaments and biological substances
CPT/HCPCS: 20610; 77002; J1030; J1040; J3490; Q9965

== ENCOUNTER → 2021-08-19 | Outpatient (CLI) | payer OTHER, MEDICAID ==
[2019-02-08 11:21] VITALS: BP 160/78
[~2021-08-19] MED LIST changes: -BUPIVACAINE MPF 0.25% 30 ML VIAL. ONE; -IOHEXOL 180 MG/ML 10 ML VIAL. ONE; -methylPREDNISolone ACETATE 40 MG/ML VIAL. ONE; -methylPREDNISolone ACETATE 80 MG/ML VIAL. ONE
--- NOTE | 2021-08-19 10:51 | PDOC ---
Progress Note - Pain Clinic Date of Service: DOS: DATE: 08/19/21 TIME: 10:48 Diagnosis: Dx: Lumbar radiculopathy with lumbar degenerative disease and lumbar and lumbosacral spondylosis Myofascial pain Bilateral knee joint pain with osteoarthritis History or Present Illness: HPI: 46-year-old female returns for follow-up status post bilateral knee joint injections with very good results patient reports about 70 to 80% improvement in both the knees doing much better walking more comfortably standing for longer periods of time try with greater ease and comfort doing household activities as well as walking greater distances and sleeping better at night patient reports her chief complaint however is pain still radiating into the left lower extremity and into the lateral and posterior calf on the left side patient reports it can be severe as aching and dull in the back with tight shooting pain in the left lower extremity we had treated with a lumbar epidural steroid injection in May of this year which was helpful but only temporarily patient is quite frustrated that the pain is still persistent and reports her back is doing better after lumbar facet injections. Patient reports no loss of motor function but significant fatigability with the left leg and difficulty with walking greater than about 5 to 10 minutes which limits at rest because of the pain in the left leg itself. We reviewed MRI scan which was done in December of this year with the patient showing some L4-5 disc base narrowing without significant stenosis. Patient reports no bowel or bladder incontinence. Physical Exam: VS: Blood pressure is 120/92 pulse 60 respirations 18 temperature 90.6 F height is 6 foot weight is 332 pounds PE: PHYSICAL EXAMINATION: GENERAL: The patient is awake, alert, oriented, appropriate, very pleasant in demeanor HEENT: Shows normocephalic, atraumatic. Extraocular movements are intact and symmetrical. Oral cavity: Mucous membranes moist and pink. Dentition is intact. NECK: Shows anterior throat supple without palpable lymphadenopathy noted. Swallow reflex symmetrical. CHEST: Shows normal on inspection. Breath sounds are clear bilaterally, distant but no rales or rhonchi. HEART: Shows S1, S2 clear. No murmurs auscultated. ABDOMEN: Soft, nontender, nondistended, obese. No palpable organomegaly is noted. BACK: Shows spine grossly in the midline. Normal-appearing cervical lordotic curvature. There is slightly increased thoracic kyphosis, some minor flattening of the lumbar lordotic curvature. Lumbar paraspinous muscles show symmetrical on inspection, on palpation shows some moderate tenderness diffusely throughout the upper, middle and lower distribution of the paraspinous muscles without specific trigger points, without radiation of pain. The patient has good rotational motion of the lumbar spine, both laterally as well as extension and flexion without significant difficulty. No tenderness over the spinous processes, sacrum or sacroiliac regions. EXTREMITIES: Lower extremities show deep tendon reflexes 1+ in the patellar and tendo calcaneus tendons. Motor exam is 5 on a scale of 5 with right dorsiflexion, extension, quadriceps and hamstring flexion and 5/5 on the left. Peripheral pulses are 1+ posterior tibial. No peripheral edema is noted bilaterally. Lower extremities are warm and dry. SKIN: Shows warm and dry, good turgor. No edema. No sores, rashes or bruising throughout. Procedure: Procedure: Options were discussed with the patient. Patient chart was reviewed as her current medication regimen updated current review of systems updated today as well. We will send patient for physical therapy for postural training strength injection exercise as well as ultrasound massage techniques for the left lower extremity in the low back. Once completed patient will return for follow-up. Medication Injected: Med Injected: None Condition at Discharge: Condition at Discharge: Condition at discharge is stable. MAYITO PEREZ MD Aug 19, 2021 10:51
== END | disposition home or self-care (01) ==
LOC: PNCL 09:44
PROVIDERS: ATTEND Anesthesiology
DX: M51.16 Intervertebral disc disorders with radiculopathy, lumbar region (principal); M47.26 Other spondylosis with radiculopathy, lumbar region; M47.27 Other spondylosis with radiculopathy, lumbosacral region; M79.18 Myalgia, other site; M17.0 Bilateral primary osteoarthritis of knee; I10 Essential (primary) hypertension; E78.00 Pure hypercholesterolemia, unspecified; G47.30 Sleep apnea, unspecified; E66.9 Obesity, unspecified; F41.9 Anxiety disorder, unspecified; F32.9 Major depressive disorder, single episode, unspecified; K21.9 Gastro-esophageal reflux disease without esophagitis; Z90.710 Acquired absence of both cervix and uterus; Z98.890 Other specified postprocedural states; Z79.899 Other long term (current) drug therapy; Z87.891 Personal history of nicotine dependence; Z88.0 Allergy status to penicillin; Z88.2 Allergy status to sulfonamides; Z88.1 Allergy status to other antibiotic agents; Z88.8 Allergy status to other drugs, medicaments and biological substances; Z72.89 Other problems related to lifestyle
CPT/HCPCS: 99212; G0463

== ENCOUNTER → 2021-09-09 | Outpatient (CLI) | payer OTHER, MEDICAID ==
[2019-02-08 11:21] VITALS: BP 160/78
--- NOTE | 2021-09-10 09:25 | KCIC ---
EXAMINATION: Magnetic resonance imaging (MRI) of the lumbar spine without contrast 09/09/2021 3:45 PM HISTORY: Low back pain. TECHNIQUE: Multiplanar multi-weighted MRI of the lumbar spine was performed without intravenous contr ast using the standard lumbar spine protocol. Contrast information: None administered. COMPARISON: MRI lumbar spine 09/12/2017. FINDINGS: The alignment of the lumbar spine is normal. Vertebral bodies demonstrate normal signal intensity on all sequences. There are no compression fractures. The conus medullaris terminates at the level of L1. The distal spinal cord signal intensity is normal. Mild disc height loss at L4-L5 with disc jennifer iccation at L4-L5 and L5-S1. Limited views of the abdomen and pelvis show no soft tissue abnormality. The aorta is normal. L1-L2: The disc is normal in configuration. There is no facet arthropathy. There is no neuroforaminal stenosis. There is no spinal canal stenosis. L2-L3: The disc is normal in configuration. There is no facet arthropathy. There is no neuroforaminal stenosis. There is no spinal canal stenosis. L3-L4: The disc is normal in configuration. There is no facet arthropathy. There is no neuroforaminal stenosis. There is no spinal canal stenosis. L4-L5: There is a disc bulge with left foraminal disc extrusion extending into the left far lateral z one. Mild to moderate facet arthropathy. Severe left neuroforaminal stenosis. No significant spinal c anal stenosis. L5-S1: Mild disc bulge. Mild facet arthropathy. Mild bilateral neuroforaminal stenosis. No spinal can al stenosis. IMPRESSION: Left foraminal disc extrusion at L4-L5 extending to the left far lateral zone results in severe left neural foraminal stenosis. Findings have progressed since the prior examination. Electronically signed by: Xiao Escobedo MD (09/10/2021 9:22 AM) [id number]
== END ==
LOC: KCIC MRI 15:34
PROVIDERS: ATTEND Anesthesiology
DX: M51.16 Intervertebral disc disorders with radiculopathy, lumbar region (principal); M51.27 Other intervertebral disc displacement, lumbosacral region; M48.8X7 Other specified spondylopathies, lumbosacral region; M48.07 Spinal stenosis, lumbosacral region; M51.37 Other intervertebral disc degeneration, lumbosacral region
CPT/HCPCS: 72148

== ENCOUNTER → 2021-12-15 | Outpatient (CLI) | payer OTHER, MEDICAID ==
[2019-02-08 11:21] VITALS: BP 160/78
[~2021-12-15] MED LIST changes: +BUPIVACAINE MPF 0.25% 10 ML VIAL. ONE; -CHOL4POW2 PO; +CHOL4POW6 PO; +IOHEXOL 180 MG/ML 10 ML VIAL. ONE; +METO100T7 PO; +methylPREDNISolone ACETATE 80 MG/ML VIAL. ONE
--- NOTE | 2021-12-15 10:36 | PDOC ---
Progress Note - Pain Clinic Date of Service: DOS: DATE: 12/15/21 TIME: 10:32 Diagnosis: Dx: Lumbar radiculopathy with lumbar degenerative disease and lumbar spondylosis Bilateral knee joint pain with osteoarthritis Myofascial pain History or Present Illness: HPI: 46-year-old female returns for follow-up status post new MRI scan dated September 09, 2021 which we discussed with her regarding the findings of a left foraminal disc extrusion at L4-5 which is progressed since prior examination of 2018 extending to the left far lateral zone resulting in severe left neuroforaminal stenosis. Patient reports he has significant pain in the low back now rating t he left lower extremity essentially exclusively patient did have some pain in the back previously but no radiation to the lower extremity to this capacity patient reports an 8 on scale 10 is worse over the past week 6 on average 4 to [place] is a 6 today patient scribes aching dull tight alternating in the back shooting in the leg radiating constant the left lower extremity posterior lateral thigh anterior thigh anteromedial thigh medial lower leg as well patient reports is worse with walking standing changing positions worse in the morning is waking her from sleep but anywhere from every 4 hours on patient reports no loss of motor function but significant fatigability when she feels she is walk for a mile with her left leg after about 5 minutes of walking patient reports no loss of motor function not use any assistive devices to ambulate no bowel or bladder incontinence. Physical Exam: VS: Blood pressure is 143/106 pulse 61 respirations 18 temperature 98.1 F weight is 351 pounds. PE: PHYSICAL EXAMINATION: GENERAL: The patient is awake, alert, oriented, appropriate, very pleasant in demeanor HEENT: Shows normocephalic, atraumatic. Extraocular movements are intact and symmetrical. Patient wearing eyeglasses. Oral cavity: Mucous membranes moist and pink. Dentition is intact. NECK: Shows anterior throat supple without palpable lymphadenopathy noted. Swallow reflex symmetrical. CHEST: Shows normal on inspection. Breath sounds are clear bilaterally, distant but no rales or rhonchi auscultated. HEART: Shows S1, S2 clear. No murmurs auscultated. ABDOMEN: Soft, nontender, nondistended, obese. No palpable organomegaly is noted. BACK: Shows spine grossly in the midline. Normal-appearing cervical lordotic curvature. There is slightly increased thoracic kyphosis, some minor flattening of the lumbar lordotic curvature. Lumbar paraspinous muscles show symmetrical on inspection, on palpation shows some moderate tenderness diffusely throughout the upper, middle and lower distribution of the paraspinous muscles, but without specific trigger points, without radiation of pain. The patient has good rotational motion of the lumbar spine, both laterally as well as extension and flexion with some moderate discomfort but only minimal with extension and forward flexion as well as right left lateral rotation. EXTREMITIES: Lower extremities show deep tendon reflexes 1+ in the patellar and tendo calcaneus tendons. Motor exam is 5 on a scale of 5 with right dorsiflexion, extension, quadriceps and hamstring flexion and 4/5 on the left. Peripheral pulses are 1+ posterior tibial. No peripheral edema is noted bilaterally. Lower extremities are warm and dry to touch, equal in color and appearance. Straight leg raise noted to be positive on the left at approximately 40 degrees, decreased with knee flexion right side is negative. SKIN: Shows warm and dry, good turgor. No edema. No sores, rashes or bruising throughout. Procedure: Procedure: Options discussed with patient. Patient's old chart was reviewed as her current medication regimen updated review of systems updated today as well. We will proceed with a left transforaminal lumbar epidural steroid injection with fluoroscopic guidance today. Risks were discussed including but not limited to: Bleeding, infection, possibility of epidural hematoma and subsequent jace rological compromise, dural puncture, headaches, spinal cord and/or nerve damage, potential injection of vertebral artery at that level and permanent ischemic damage, side effects of steroid medication, and poor results regarding pain control. Patient understands and wished to proceed. Patient will return to clinic in approximately 2 weeks for follow-up, was counseled as to return appointment, activity level, and side effect to be aware of. Medication Injected: Med Injected: Under sterile prep and drape patient was placed in prone position using C-arm fluoroscopic guidance to identify the L4-5 distribution oblique and slightly cephalad angled C arm. The left L4-5 target was identified and using lidocaine for anesthetizing the skin 22-gauge Karissa pencil point needle was then used to enter the skin and into the subcutaneous tissues using direct C-arm fluoroscopic guidance to guide the needle into the transforaminal aspect of the left L4-5 vertebrae this was confirmed with lateral views showing the needle tip in the superior aspect of the paravertebral region. Aspiration was noted to be negative, -1.5 cc of contrast was then injected with good spread both medially into the epidural space as well as laterally along the nerve root without uptake and without distribution and uptake on digital subtraction. At this time, a solution containing 2 cc of 0.25% bupivacaine and 80 mg of Depo-Medrol was then injected. Needle was withdrawn and sterile bandage was applied. Patient tole rated procedure well had no immediate complications Condition at Discharge: Condition at Discharge: Condition at discharge is stable, patient tolerated procedure well and had no complications. MAYITO PEREZ MD Dec 15, 2021 10:36
--- NOTE | 2021-12-15 10:37 | PDOC4 ---
Procedure Note: ICD 10 Code: ICD 10 Code: M54.16 M51.36 [facility] 7.816 Procedure Note: Patient was consented for left L4-5 lumbar transforaminal epidural steroid injection with fluoroscopic guidance. Risks were discussed including but not limited to: Bleeding, infection, possibility of epidural hematoma and subsequent neurological compromise, dural puncture, headaches, spinal cord and/or nerve damage, potential injection of the vertebral artery at that level and permanent ischemic damage, side effects of steroid medication, and poor results regarding pain control. Patient understands and wished to proceed. Under sterile prep and drape patient was placed in prone position using C-arm fluoroscopic guidance to identify the L4-5 distribution oblique and slightly cephalad angled C arm. The left L4-5 target was identified and using lidocaine for anesthetizing the skin 22-gauge Karissa pencil point needle was then used to enter the skin and into the subcutaneous tissues using direct C-arm fluoroscopic guidance to guide the needle into the transforaminal aspect of the left L4-5 vertebrae this was confirmed with lateral views showing the needle tip in the superior aspect of the paravertebral region. Aspiration was noted to be negative, -1.5 cc of contrast was then injected with good spread both medially into the epidural space as well as laterally along the nerve root without uptake and without distribution and uptake on digital subtraction. At this time, a solution containing 2 cc of 0.25% bupivacaine and 80 mg of Depo-Medrol was then injected. Needle was withdrawn and sterile bandage was applied. Patient tolerated procedure well had no immediate complications MAYITO PEREZ MD Dec 15, 2021 10:37
== END | disposition home or self-care (01) ==
LOC: PNCL 09:11
PROVIDERS: ATTEND Anesthesiology
DX: M51.16 Intervertebral disc disorders with radiculopathy, lumbar region (principal); M47.26 Other spondylosis with radiculopathy, lumbar region; M17.0 Bilateral primary osteoarthritis of knee; M79.18 Myalgia, other site; I10 Essential (primary) hypertension; E78.00 Pure hypercholesterolemia, unspecified; G47.30 Sleep apnea, unspecified; F41.9 Anxiety disorder, unspecified; F32.9 Major depressive disorder, single episode, unspecified; E66.9 Obesity, unspecified; K21.9 Gastro-esophageal reflux disease without esophagitis; Z87.891 Personal history of nicotine dependence; Z79.899 Other long term (current) drug therapy; Z90.710 Acquired absence of both cervix and uterus; Z98.890 Other specified postprocedural states; Z72.89 Other problems related to lifestyle; Z88.0 Allergy status to penicillin; Z88.1 Allergy status to other antibiotic agents; Z88.2 Allergy status to sulfonamides; Z88.8 Allergy status to other drugs, medicaments and biological substances
CPT/HCPCS: 64483; J1040; J3490; Q9965

== ENCOUNTER → 2022-01-11 | Outpatient (CLI) | payer OTHER, MEDICAID ==
[2019-02-08 11:21] VITALS: BP 160/78
[~2022-01-11] MED LIST changes: +DEXAMETHASONE PRES.FREE 10 MG/ML VIAL. ONE; -methylPREDNISolone ACETATE 80 MG/ML VIAL. ONE
--- NOTE | 2022-01-11 12:27 | PDOC ---
Progress Note - Pain Clinic Date of Service: DOS: DATE: 01/11/22 TIME: 12:22 Diagnosis: Dx: Lumbar and lumbosacral spondylosis with lumbar degenerative disc disease Myofascial pain Bilateral knee joint pain with osteoarthritis History or Present Illness: HPI: 47-year-old female returns for follow-up status post left L4-5 transforaminal injection with about 90% improvement in the pain in her left lower extremity her chief complaint today however is bilateral knee joint pain left greater than right present with walking and standing no radiation and much separate than the pain in her leg but worse with stepping all of her weight on her right or left lower extremity such as climbing stairs or steps she is doing this 2 feet at a time because the pain is worse cruciated much better with sitting or laying down generally does not awaken her from sleep at night from the knee pain patient does have some significant low back pain on the right side greater than the left which is in the back itself but without radiation at this time. Patient reports her pain to 7 on scale 10 is worse over the past week 6 on average 5 to [place] patient continues to do stretching and strength exercises as well as chiropractic treatment and is doing physical therapy exercises that she learned from previous physical therapies on her own currently and doing these daily she is also trying to walk daily but her knees are limiting this significantly currently. Patient reports pain is constant and cramping aching dull tight alternating and dull and tight pain in the back which is worse with extended standing or extended sitting especially with reaching up over her head with the pain itself without radiation. Physical Exam: VS: Blood pressure is 176/103 pulse 94 respirations 16 temperature 98.1 F weight is 345 pounds. PE: PHYSICAL EXAMINATION: GENERAL: The patient is awake, alert, oriented, appropriate, very pleasant in demeanor HEENT: Shows normocephalic, atraumatic. Extraocular movements are intact and sy mmetrical. Oral cavity: Mucous membranes moist and pink. Dentition is intact. NECK: Shows anterior throat supple without palpable lymphadenopathy noted. Swallow reflex symmetrical. CHEST: Shows normal on inspection. Breath sounds are clear bilaterally. HEART: Shows S1, S2 clear. No murmurs auscultated. ABDOMEN: Soft, nontender, nondistended, obese. No palpable organomegaly is noted. BACK: Shows spine grossly in the midline. Normal-appearing cervical lordotic curvature. There is slightly increased thoracic kyphosis, some minor flattening of the lumbar lordotic curvature. Lumbar paraspinous muscles show symmetrical on inspection, on palpation shows some moderate tenderness diffusely throughout the upper, middle and lower distribution of the paraspinous muscles, but without specific trigger points, without radiation of pain. The patient has good rotational motion of the lumbar spine, both laterally as well as extension and flexion with significant tenderness with extension of the lumbar spine and axial loading more on the right than left and present bilaterally without radiation to the lower extremities is better with forward flexion at 45 degrees also right and left lateral rotation is performed with moderate tenderness again more to the right than the left with rotational motion of the lumbar spine but without radiation to the lower extremities. EXTREMITIES: Lower extremities show deep tendon reflexes 1+ in the patellar and tendo calcaneus tendons. Motor exam is 4 on a scale of 5 with right dorsiflex ion, extension, quadriceps and hamstring flexion and 4/5 on the left. Peripheral pulses are 1 posterior tibial. No peripheral edema is noted bilaterally. Lower extremities are warm and dry to touch, equal in color and appearance. Patient's knee shows significant tenderness over the medial compartment and medial collateral ligament on the left greater than right but present bilaterally significant pain with standing and weightbearing better with sitting, no crepitus no ratcheting with passive range of motion bilaterally. SKIN: Shows warm and dry, good turgor. No edema. No sores, rashes or bruising throughout. Procedure: Procedure: Options discussed with patient. Patient's old chart was use her current medication regimen updated current review of systems updated today as well. We will proceed with bilateral intra-articular knee joint injections today with fluoroscopic guidance. Risks are discussed including but not limited to bleeding infection possibility of intravascular injection sequelae spread of local anesthetic numbness side effects steroid medication, exposure fluoroscopy and poor results regarding pain control. Patient understands wished to proceed. Patient will return to the clinic in approximately 2 weeks for follow-up, was counseled as to return appointment, [place], and side effects to be aware of. Medication Injected: Med Injected: Under sterile prep and drape patient in supine position using C-arm fluoroscopic guidance patient's bilateral knees were sterilely prepped and draped in usual fashion. Using C-arm fluoroscopy the medial aspect of the knee joint was identified and visualized and using 1% lidocaine 25-gauge needle of the area of the skin overlying the medial knee compartment was anesthetized. Using a 22- gauge quickie needle with stylette the joint was entered under direct visualization without difficulty. Stylet was removed at this time 2 cc of contrast was then injected with good spread within the knee joint itself without washout or uptake. At this time solution containing 3 cc each knee of 0.25 bupivacaine for total of 6 cc and a total of 20 mg dexamethasone, 10 mg per knee, were then injected. [place] were withdrawn and sterile bandages were applied. Patient tolerated procedure well and had no complications. Condition at Discharge: Condition at Discharge: Condition at discharge stable, patient Katie the procedure well and had no complications. MAYITO PEREZ MD January 11, 2022 12:27
--- NOTE | 2022-01-11 12:27 | PDOC4 ---
Procedure Note: ICD 10 Code: ICD 10 Code: M2 5.563 M17.13 Procedure Note: Patient was consented for bilateral intra-articular knee joint injections with fluoroscopic guidance. Risks were discussed including but not limited to bleeding infection possibility of intravascular injection sequelae spread of local anesthetic numbness side effects steroid medication exposure fluoroscopy and poor results regarding pain control. Patient understands wishes to proceed. Under sterile prep and drape patient in supine position using C-arm fluoroscopic guidance patient's bilateral knees were sterilely prepped and draped in usual fashion. Using C-arm fluoroscopy the medial aspect of the knee joint was ident ified and visualized and using 1% lidocaine 25-gauge needle of the area of the skin overlying the medial knee compartment was anesthetized. Using a 22-gauge quickie needle with stylette the joint was entered under direct visualization without difficulty. Stylet was removed at this time 2 cc of contrast was then injected with good spread within the knee joint itself without washout or uptake. At this time solution containing 3 cc each knee of 0.25 bupivacaine for total of 6 cc and a total of 20 mg dexamethasone, 10 mg per knee, were then injected. Branch were withdrawn and sterile bandages were applied. Patient tolerated procedure well and had no complications. MAYITO PEREZ MD January 11, 2022 12:27
== END | disposition home or self-care (01) ==
LOC: PNCL 10:47
PROVIDERS: ATTEND Anesthesiology
DX: M17.0 Bilateral primary osteoarthritis of knee (principal); M47.816 Spondylosis without myelopathy or radiculopathy, lumbar region; M47.817 Spondylosis without myelopathy or radiculopathy, lumbosacral region; M51.36 Other intervertebral disc degeneration, lumbar region; M79.18 Myalgia, other site; I10 Essential (primary) hypertension; E78.00 Pure hypercholesterolemia, unspecified; G47.30 Sleep apnea, unspecified; E66.9 Obesity, unspecified; K21.9 Gastro-esophageal reflux disease without esophagitis; F41.9 Anxiety disorder, unspecified; F32.9 Major depressive disorder, single episode, unspecified; Z90.710 Acquired absence of both cervix and uterus; Z98.890 Other specified postprocedural states; Z87.891 Personal history of nicotine dependence; Z88.0 Allergy status to penicillin; Z88.1 Allergy status to other antibiotic agents; Z88.2 Allergy status to sulfonamides; Z88.8 Allergy status to other drugs, medicaments and biological substances
CPT/HCPCS: 20610; 77002; J1100; J3490; Q9965

== ENCOUNTER → 2022-01-25 | Outpatient (CLI) | payer OTHER, MEDICAID ==
[2019-02-08 11:21] VITALS: BP 160/78
--- NOTE | 2022-01-25 10:42 | PDOC ---
Progress Note - Pain Clinic Date of Service: DOS: DATE: 01/25/22 TIME: 10:39 Diagnosis: Dx: Lumbar and lumbosacral spondylosis Lumbar degenerative disc disease Myofascial pain Bilateral knee joint pain with osteoarthritis History or Present Illness: HPI: 47-year-old female returns for follow-up status post bilateral knee joint injections with very good results near 100% improvement patient reports she did increase her activity with greater ease and comfort is walking much better and with morbility and feels much better her main complaint however is low back pain more on the right than the left and present bilaterally without radiation patient reports is worse with standing sitting for prolonged periods greater than the 30 to 40 minutes changing position specially getting up from seated position or sitting from standing position patient reports it wakes her from sleep at night about once a night but not every night patient reports is better with laying down again worse with standing and walking patient reports aching and dull tight alternating in the low back itself again right greater than left without radiation to the lower extremities. Patient rates her pain as a 8 on scale 10 at all times worst least and average is 8 today. Patient reports no bowel or bladder incontinence no loss of motor function but significant fatigue with standing. Physical Exam: VS: Blood pressure is 135/104 pulse 94 respirations 18 temperature is 98.6 F height is 5 foot 10 inches weight is 346 pounds. PE: PHYSICAL EXAMINATION: GENERAL: The patient is awake, alert, oriented, appropriate, very pleasant in demeanor HEENT: Shows normocephalic, atraumatic. Extraocular movements are intact and symmetrical. Oral cavity: Mucous membranes moist and pink. Dentition is intact. NECK: Shows anterior throat supple without palpable lymphadenopathy noted. Swallow reflex symmetrical. CHEST: Shows normal on inspection. Breath sounds are clear bilaterally. HEART: Shows S1, S2 clear. No murmurs auscultated. ABDOMEN: Soft, nontender, nondistended. No palpable organomegaly is noted. BACK: Shows spine grossly in the midline. Normal-appearing cervical lordotic curvature. There is moderately increased thoracic kyphosis, some flattening of the lumbar lordotic curvature. Lumbar paraspinous muscles show symmetrical on inspection, on palpation shows some moderate tenderness diffusely throughout the upper, middle and lower distribution of the paraspinous muscles, but without specific trigger points, without radiation of pain. The patient has good rotational motion of the lumbar spine, both laterally as well as extension and flexion with significant tenderness with extension and axial loading lumbar spine as well as right left lateral rotation slightly more tender to the right and left with greater than 10 degrees rotation forward flexion is performed at 45 degrees without significant difficulty. EXTREMITIES: Lower extremities show deep tendon reflexes 1+ in the patellar and tendo calcaneus tendons. Motor exam is 4 on a scale of 5 with right dorsiflexion, extension, quadriceps and hamstring flexion and 4/5 on the left. Peripheral pulses are 1+ posterior tibial. No peripheral edema is noted bilaterally. Lower extremities are warm and dry to touch, equal in color and appearance. SKIN: Shows warm and dry, good turgor. No edema. No sores, rashes or bruising throughout. Procedure: Procedure: Options were discussed with the patient. Patient's old chart was reviewed as her current medication regimen updated current review of systems updated today as well. We will proceed with a bilateral L4-5 and L5-S1 facet medial branch blocks today with fluoroscopic guidance. Risks were discussed including but not limited to: Bleeding, infection, possibility of epidural hematoma and subsequent neurological compromise, dural puncture, headaches, spinal cord and/or nerve damage, side effects of steroid medication, and poor results regarding pain control. Patient understands and wished to proceed. Patient will return to clinic in approximately 4 weeks for follow-up, was counseled as to return home, activity level, and side effects to be aware of. Medication Injected: Med Injected: Under sterile prep and drape using C-arm fluoroscopic guidance AP and lateral and oblique views, bilateral L4-5 and L5-S1 facet joint MB's injections were performed, using 22-gauge quinke needles with stylette's x4,, medications injected: 20 mg dexamethasone +4 cc 0.25% bupivacaine +2 cc contrast. Condition at discharge is stable, patient tolerated the procedure well and no complications. Condition at Discharge: Condition at Discharge: Condition at discharge stable, patient tolerated the procedure well and had no complications. MAYITO PEREZ MD January 25, 2022 10:42
--- NOTE | 2022-01-25 10:43 | PDOC4 ---
Procedure Note: ICD 10 Code: ICD 10 Code: M4 7.816 M4 7.817 Procedure Note: Patient was consented for bilateral L4-5 and L5-S1 facet medial branch blocks with fluoroscopic guidance. Risks were discussed including but not limited to: Bleeding, infection, possibility of epidural hematoma and subsequent neurological compromise, dural puncture, headaches, spinal cord and/or nerve damage, side effects of steroid medication, and poor results regarding pain control. Patient understands and wished to proceed. Under sterile prep and drape using C-arm fluoroscopic guidance AP and lateral and oblique views, bilateral L4-5 and L5-S1 facet joint MB's injections were performed, using 22-gauge quinke needles with stylette's x4,, medications injected: 20 mg dexamethasone +4 cc 0.25% bupivacaine +2 cc contrast. Condition at discharge is stable, patient tolerated the procedure well and no complications. MAYITO PEREZ MD January 25, 2022 10:43
== END | disposition home or self-care (01) ==
LOC: PNCL 09:31
PROVIDERS: ATTEND Anesthesiology
DX: M47.816 Spondylosis without myelopathy or radiculopathy, lumbar region (principal); M47.817 Spondylosis without myelopathy or radiculopathy, lumbosacral region; M51.36 Other intervertebral disc degeneration, lumbar region; M79.18 Myalgia, other site; M17.0 Bilateral primary osteoarthritis of knee; I10 Essential (primary) hypertension; E78.00 Pure hypercholesterolemia, unspecified; G47.30 Sleep apnea, unspecified; K21.9 Gastro-esophageal reflux disease without esophagitis; M19.90 Unspecified osteoarthritis, unspecified site; F41.9 Anxiety disorder, unspecified; F32.9 Major depressive disorder, single episode, unspecified; E66.9 Obesity, unspecified; Z90.710 Acquired absence of both cervix and uterus; Z98.890 Other specified postprocedural states; Z79.899 Other long term (current) drug therapy; Z88.0 Allergy status to penicillin; Z88.1 Allergy status to other antibiotic agents; Z88.2 Allergy status to sulfonamides; Z88.8 Allergy status to other drugs, medicaments and biological substances
CPT/HCPCS: 64493; 64494; J1100; J3490; Q9965